=== PATIENT | female | born 1940 | race Caucasian/White ===

== ENCOUNTER 2020-06-16 18:38 | Inpatient (IN) | payer MEDICARE, MEDICAID, SELFPAY ==
[2020-06-16] VITALS (15 sets, daily range): BP systolic 117–154; BP diastolic 68–89; PULSE 75–84; RESP 18–30; TEMP 36.6; O2SAT 92–97; BMI 23.8
--- NOTE | 2020-06-16 18:43 | CTR_ITS ---
PROCEDURE INFORMATION: Exam: CT Abdomen And Pelvis With Contrast Exam date and time: 06/16/2020 8:00 PM Age: 80 years old Clinical indication: Abdominal pain; Generalized; Prior surgery; Surgery date: 6+ months; Surgery type: Gb, part hyst; Patient HX: C/O abd pain w n/v and constipation TECHNIQUE: Imaging protocol: Computed tomography of the abdomen and pelvis with intravenous contrast. Radiation optimization: All CT scans at this facility use at least one of these dose optimization techniques: automated exposure control; mA and/or kV adjustment per patient size (includes targeted exams where dose is matched to clinical indication); or iterative reconstruction. Contrast material: VISI 320; Contrast volume: 95 ml; Contrast route: INTRAVENOUS (IV); COMPARISON: [facility] Renal 03/19/2017 9:46 AM RADIATION DOSE METRICS: Total DLP (mGy-cm): 332.86 FINDINGS: Liver: Normal. No mass. Gallbladder and bile ducts: Surgical clips in the gallbladder fossa consistent with cholecystectomy. Dilatation of the intra-and extrahepatic biliary tree which can be normal following cholecystectomy. Pancreas: Normal. No ductal dilation. Spleen: Normal. No splenomegaly. Adrenal glands: 2.2 x 1.5 cm right adrenal mass. Correlation with non-emergent MRI is recommended to rule out malignant neoplasm versus benign adrenal adenoma. Kidneys and ureters: Right renal simple cyst measuring >1.0 cm . Multiple left renal simple cysts with the largest measuring > 1.0 cm. One or more focal cortical defects in the left kidney, representing sequela from previous infection or infarction. Stomach and bowel: Duodenal diverticulum. Severe sigmoid colonic diverticulosis. Lobulated 5.1 x 4.6 by 6.8 cm apple core lesion in the left transverse colon adjacent to the splenic flexure most consistent with nonobstructing colon carcinoma. Appendix: No evidence of appendicitis. Intraperitoneal space: Moderate free fluid in the dependent portion the pelvis which is probably secondary to the left upper quadrant mass. Retroperitoneal space: Large loculated 12.7 x 5.4 x 8.1 cm fluid collection posterior to the inferior margin of the left transverse colon mass with possible connection with the lumen of the mass suggesting possible loculated abscess/perforation versus enlarged duplication cyst. Vasculature: Severe calcified coronary artery disease. Calcification of the abdominal aorta and/or iliac arteries consistent with atherosclerotic vessel disease. 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 Nonemergent vascular surgery consultation is recommended. Lymph nodes: Calcified bilateral hilar nodes and/or mediastinal nodes and/or lung granulomas consistent with old granulomatous disease. Urinary bladder: Unremarkable as visualized. Reproductive: Status post hysterectomy. Bones/joints: Grade 1 anterior non-spondylitic spondylolisthesis of L4 on L5 with central spinal stenosis and prominent facet degenerative changes. Soft tissues: 5.9 cm midline anterior abdominal hernia containing fat, just anterior to the left liver, 14 cm superior to the umbilicus. CT/CT abdomen pelvis w con* [id number] IMPRESSION: 1. 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 Nonemergent vascular surgery consultation is recommended. 2. 2.2 x 1.5 cm right adrenal mass. Correlation with non-emergent MRI is recommended to rule out malignant neoplasm versus benign adrenal adenoma. 3. Lobulated 5.1 x 4.6 by 6.8 cm apple core lesion in the left transverse colon adjacent to the splenic flexure most consistent with nonobstructing colon carcinoma. 4. Large loculated 12.7 x 5.4 x 8.1 cm fluid collection posterior to the inferior margin of the left transverse colon mass with possible connection with the lumen of the mass suggesting possible loculated abscess/perforation versus enlarged duplication cyst. 5. Moderate free fluid in the dependent portion the pelvis which is probably secondary to the left upper quadrant mass. COMMENTS: Consistent with the [employer]'s Incidental Findings Committee white paper (J Am Jaqueline Radiol 2018): Any incidental renal lesion less than 1 cm or classified as too small to characterize, or any incidental cystic renal lesion characterized as simple-appearing, is likely benign. No follow-up imaging is recommended for these lesions per consensus recommendations based on imaging criteria. Radiation Dose CTDIVOL = (mGy): DLP = 332.86 (mGy-cm)
--- NOTE | 2020-06-16 18:47 | W.ED.ABDPA2 ---
HPI - Abdominal Pain General: Chief Complaint: Abdominal Pain Stated Complaint: ABD PAIN Time Seen by Provider: 06/16/20 18:39 Source: patient and EMS Mode of arrival: EMS Limitations: no limitations History of Present Illness: HPI narrative: 80-year-old female who states she had abdominal pain over the last 2 days. States pain is been sharp in nature and diffuse. States she has been constipated and has not had a bowel movement over the last 5 days. She denies any vomiting denies any fever denies any worsening improving factors. MD elicited complaint: abdominal pain Onset (ago): day(s) Pain Consistency: constant Location: Diffuse Severity: moderate Quality: aching Radiation: none Migration to: no migration Associated Symptoms: Denies chills, dysuria and fever(s) Review of Systems Const: Denies: fever(s), chills, body aches or change in appetite Eyes: Denies: blurry vision or eye discomfort ENMT: Denies: throat pain or dental pain Card: Denies: chest pain Resp: Denies: dyspnea GI: Reports: abdominal pain : Denies: dysuria Musc: Denies: neck pain or back pain Skin/Breast: Denies: rash Neuro: Denies: headache(s) Psych: Denies: depression Frantz/Lymph: Denies: easy bruising All/Imm: Denies: urticaria PFSH ED PFSH: Medical History (Updated 06/16/20 @ 21:24 by Agustín Buchanan MD) Arthritis COPD (chronic obstructive pulmonary disease) Hypertension Surgical History (Updated 06/16/20 @ 21:24 by Agustín Buchanan MD) H/O: hysterectomy S/P cholecystectomy Social History (Updated 06/16/20 @ 21:25 by Agustín Buchanan MD) Smoking and tobacco status: former smoker Alcohol intake: never Substance/Drug Use: never Physical Exam Const: COMMON NORMALS: no acute distress, patient oriented x3 and healthy appearing HENMT: COMMON NORMALS: normocephalic and atraumatic HEAD & SCALP: normocephalic and atraumatic Eye: COMMON NORMALS: Equal, round and reactive pupils present and EOMs intact bilaterally PUPIL: Yes Equal, round and reactive pupils present Neck/C-Spine: COMMON NORMALS: full ROM and supple Chest: COMMONS NORMALS: normal inspection of the chest and normal palpation of entire chest wall Resp: COMMON NORMALS: normal respiratory effort, No retractions, No use of accessory muscles and clear to auscultation bilaterally AUSCULTATION: clear to auscultation bilaterally Cardio: COMMON NORMALS: regular rate, regular rhythm and No murmurs present (Cardio) RATE: regular rate RHYTHM: regular rhythm GI: COMMON NORMALS: Normal to inspection, nondistended, normoactive bowel sounds present, Soft to palpation and no masses PALPATION: Yes Soft to palpation OTHER: Slight diffuse tenderness. Abdominal hernia that is easily reducible. Extremity: COMMON NORMALS: normal to inspection and full ROM Neuro: COMMON NORMALS: patient oriented x3, moves all extremities and no focal motor deficits Psych: COMMON NORMALS: mental status grossly normal, Normal thought process present and cooperative THOUGHT PROCESS: Normal thought process present Skin: COMMON NORMALS: no rashes or lesions noted and no wounds GENERAL SKIN EXAM: no rashes or lesions noted Course Vital Signs: Vital signs: Vital Signs Temperature 97.9 F 06/16/20 18:39 Pulse Rate 80 06/16/20 18:39 Respiratory Rate 18 06/16/20 18:39 Blood Pressure 139/73 06/16/20 18:39 Pulse Oximetry 96 06/16/20 18:39 MDM - Abdominal Pain MDM Narrative: Medical decision making narrative: Patient presents here with abdominal pain. Her CT scan shows a colon mass with possible perforation versus abscess. She has minimal tenderness here with no acute exam findings for perforation. She does have an elevated white count. I spoke to surgeon on-call Dr. Fraser and went over CT findings with him. We will start her on vancomycin and Zosyn and and order lactate. Patient is admitted to the ICU. She has been stable while in the ER. Lab Data: Labs: Lab Results 06/16/20 06/16/20 06/16/20 Range/Units 19:35 19:35 20:00 WBC 19.2 H (4.0-10.0) 10^3/ uL RBC 4.78 (4.1-5.3) 10^6/u L Hgb 13.4 (11.5-15.3) g/dL Hct 40.8 (37.0-47.0) % MCV 85.4 (81-99) fL MCH 28.0 (28.0-34.0) pg MCHC 32.8 (30.0-36.0) g/dL RDW 13.4 (12.1-15.1) % Plt Count 277 (130-400) 10^3/c mm MPV 10.8 H (7.4-10.4) fL Neut % (Auto) 86.7 % Lymph % (Auto) 3.8 % [place] % (Auto) 8.5 % Eos % (Auto) 0.1 % Baso % (Auto) 0.3 % Neut # (Auto) 16.62 H (1.8-7.7) 10^3/u L Lymph # (Auto) 0.7 L (0.8-4.8) 10^3/u L [place] # (Auto) 1.6 H (0.2-0.9) 10^3/u L Eos # (Auto) 0.0 (0.0-0.8) 10^3/u L Baso # (Auto) 0.1 (0.0-0.1) 10^3/u L Nucleated RBC % (a uto) 0 % Nucleated RBCs # 0.0 /100WBC Sodium 133 L (136-145) mmol/L Potassium 3.9 (3.5-5.1) mmol/L Chloride 95 L (98-107) mmol/L Carbon Dioxide 23 (22-29) mmol/L Anion Gap 18.9 (5-19) BUN 19 (8-23) mg/dL Creatinine 1.5 H (0.5-0.9) mg/dL GFR Calculation Not Reportable Glucose 123 H (65-115) mg/dL Calculated Osmolal ity 280 L (285-295) mOsm/k g Calcium 8.9 (8.5-10.5) mg/dL Total Bilirubin 0.6 (0.15-1.2) mg/dL AST 16 (0-32) U/L ALT 10 (0-33) U/L Alkaline Phosphata se 70 (35-105) IU/L Total Protein 6.4 L (6.6-8.7) g/dL Albumin 3.3 L (3.5-5.2) g/dL Globulin 3.1 (1.3-4.6) g/dL Lipase 35 (13-60) U/L Urine Color Yellow (Yellow) Urine Appearance Sl cloudy A (CLEAR) Urine pH 5 (5-7) Ur Specific Gravit y 1.020 (1.005-1.030) Urine Protein 1+ H (Negative) Urine Glucose (UA) Norm (Normal) Urine Ketones 1+ H (Negative) Urine Blood 2+ H (Negative) Urine Nitrate Negative (Negative) Urine Bilirubin 1+ H (Negative) Urine Urobilinogen 4 H (Negative) mg/dL Ur Leukocyte Vianca ase 2+ H (Negative) Urine RBC 15-25 H (0-2) /hpf Urine WBC 40-55 H (0-5) /hpf Ur Squamous Epith Cells 55-80 H (0-5) /hpf Amorphous Sediment Not Reportable Urine Bacteria 4+ H (NONE) /hpf Imaging Data ^: CT Abd/Pel: Radiologist's impression: [address] [place] [id number] Scan Report Signed with Addenda Patient: Chastity Cramer Unit #: [id number] : [id number] Age/Sex: 80 / F ADM Date: 06/16/20 Loc: ER Room/Bed: Attending Dr: Ordering Provider/Ordering MD: Sherley Barton MD Date of Service: 06/16/20 Procedure(s): CT abdomen pelvis w con* [id number] Accession Number(s): [id number] Report Number: [id number]/CT abdomen pelvis w con* [id number] THIS REPORT CONTAINS FINDINGS THAT MAY BE CRITICAL TO PATIENT CARE. The findings were verbally communicated via telephone conference with Sherley Barton at 8:50 PM [employer] on 06/16/2020. The findings were acknowledged and understood. Radiation Dose CTDIVOL = (mGy): DLP = 332.86 (mGy-cm) Addendum Dictated By: Gene Allen MD Addendum Signed By: Gene Allen MD Signed Date/Time: 06/16/202050 Addendum Cosigned By: PROCEDURE INFORMATION: Exam: CT Abdomen And Pelvis With Contrast Exam date and time: 06/16/2020 8:00 PM Age: 80 years old Clinical indication: Abdominal pain; Generalized; Prior surgery; Surgery date: 6+ months; Surgery type: Gb, part hyst; Patient HX: C/O abd pain w n/v and constipation TECHNIQUE: Imaging protocol: Computed tomography of the abdomen and pelvis with intravenous contrast. Radiation optimization: All CT scans at this facility use at least one of these dose optimization techniques: automated exposure control; mA and/or kV adjustment per patient size (includes targeted exams where dose is matched to clinical indication); or iterative reconstruction. Contrast material: VISI 320; Contrast volume: 95 ml; Contrast route: INTRAVENOUS (IV); COMPARISON: [facility] Renal 03/19/2017 9:46 AM RADIATION DOSE METRICS: Total DLP (mGy-cm): 332.86 FINDINGS: Liver: Normal. No mass. Gallbladder and bile ducts: Surgical clips in the gallbladder fossa consistent with cholecystectomy. Dilatation of the intra-and extrahepatic biliary tree which can be normal following cholecystectomy. Pancreas: Normal. No ductal dilation. Spleen: Normal. No splenomegaly. Adrenal glands: 2.2 x 1.5 cm right adrenal mass. Correlation with non-emergent MRI is recommended to rule out malignant neoplasm versus benign adrenal adenoma. Kidneys and ureters: Right renal simple cyst measuring >1.0 cm . Multiple left renal simple cysts with the largest measuring > 1.0 cm. One or more focal cortical defects in the left kidney, representing sequela from previous infection or infarction. Stomach and bowel: Duodenal diverticulum. Severe sigmoid colonic diverticulosis. Lobulated 5.1 x 4.6 by 6.8 cm apple core lesion in the left transverse colon adjacent to the splenic flexure most consistent with nonobstructing colon carcinoma. Appendix: No evidence of appendicitis. Intraperitoneal space: Moderate free fluid in the dependent portion the pelvis which is probably secondary to the left upper quadrant mass. Retroperitoneal space: Large loculated 12.7 x 5.4 x 8.1 cm fluid collection posterior to the inferior margin of the left transverse colon mass with possible connection with the lumen of the mass suggesting possible loculated abscess/perforation versus enlarged duplication cyst. Vasculature: Severe calcified coronary artery disease. Calcification of the abdominal aorta and/or iliac arteries consistent with atherosclerotic vessel disease. 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 Nonemergent vascular surgery consultation is recommended. Lymph nodes: Calcified bilateral hilar nodes and/or mediastinal nodes and/or lung granulomas consistent with old granulomatous disease. Urinary bladder: Unremarkable as visualized. Reproductive: Status post hysterectomy. Bones/joints: Grade 1 anterior non-spondylitic spondylolisthesis of L4 on L5 with central spinal stenosis and prominent facet degenerative changes. Soft tissues: 5.9 cm midline anterior abdominal hernia containing fat, just anterior to the left liver, 14 cm superior to the umbilicus. CT/CT abdomen pelvis w con* [id number] IMPRESSION: 1. 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 Nonemergent vascular surgery consultation is recommended. 2. 2.2 x 1.5 cm right adrenal mass. Correlation with non-emergent MRI is recommended to rule out malignant neoplasm versus benign adrenal adenoma. 3. Lobulated 5.1 x 4.6 by 6.8 cm apple core lesion in the left transverse colon adjacent to the splenic flexure most consistent with nonobstructing colon carcinoma. 4. Large loculated 12.7 x 5.4 x 8.1 cm fluid collection posterior to the inferior margin of the left transverse colon mass with possible connection with the lumen of the mass suggesting possible loculated abscess/perforation versus enlarged duplication cyst. 5. Moderate free fluid in the dependent portion the pelvis which is probably secondary to the left upper quadrant mass. Critical Care Time Critical Care Time: Critical Care Time: Yes Total Critical Care Time: 36 Attestation: This case had a high probability of a clinically significant, sudden, or life threatening deterioration of this patient's condition which required my full and direct attention, intervention and personal management. Discharge Plan Discharge Patient Disposition: Admitted As Inpatient Admit Provider: Agustín Buchanan Clinical Impression: Colonic mass, Intra-abdominal abscess Condition: Stable Coding Level of Care Code ED Director Business Management for Chg Fwd Exam Comprehensive
[2020-06-16 19:44] LABS: Basophils # 0.1 10^3/uL (0.0-0.1); Basophils % 0.3 %; Eosinophils % 0.1 %; Hematocrit 40.8 % (37.0-47.0); Hemoglobin 13.4 g/dL (11.5-15.3); Lymphocytes # 0.7 10^3/uL (0.8-4.8); Lymphocytes % 3.8 %; Mean Corpuscular HGB Conc 32.8 g/dL (30.0-36.0); Mean Corpuscular Volume 85.4 fL (81-99); Mean Platelet Volume 10.8 fL (7.4-10.4); Monocytes # 1.6 10^3/uL (0.2-0.9); Monocytes % 8.5 %; Neutrophils # 16.62 10^3/uL (1.8-7.7); Neutrophils % 86.7 %; Nucleated Red Blood Cells % 0 %; Platelet Count 277 10^3/cmm (130-400); Red Blood Count 4.78 10^6/uL (4.1-5.3); Red Cell Distribution Width 13.4 % (12.1-15.1); White Blood Count 19.2 10^3/uL (4.0-10.0)
[2020-06-16 20:03] LABS: Alanine Aminotransferase 10 U/L (0-33); Albumin Level 3.3 g/dL (3.5-5.2); Alkaline Phosphatase 70 IU/L (35-105); Anion Gap 18.9 (5-19); Aspartate Amino Transferase 16 U/L (0-32); Blood Urea Nitrogen 19 mg/dL (8-23); Calcium 8.9 mg/dL (8.5-10.5); Carbon Dioxide 23 mmol/L (22-29); Chloride 95 mmol/L (98-107); Globulin 3.1 g/dL (1.3-4.6); Glucose 123 mg/dL (65-115); Lipase 35 U/L (13-60); Osmolality Calculated 280 mOsm/kg (285-295); Potassium 3.9 mmol/L (3.5-5.1); Sodium 133 mmol/L (136-145); Total Bilirubin 0.6 mg/dL (0.15-1.2); Total Protein 6.4 g/dL (6.6-8.7)
[2020-06-16] MEDS: iodixanol 320 mg/mL 100mL Btl IV (20:15)
[2020-06-16 20:16] LABS: Urine Color Yellow (Yellow); pH Urine 5 (5-7)
[2020-06-16 20:17] LABS: Bilirubin Urine 1+ (Negative); Blood Urine 2+ (Negative); Glucose Urine UA Norm (Normal); Ketones Urine 1+ (Negative); Leukocyte Esterase Urine 2+ (Negative); Nitrate Urine Negative (Negative); Protein Urine 1+ (Negative); Urobilinogen Urine 4 mg/dL (Negative)
[2020-06-16 20:23] LABS: Add Urine Culture? No; Bacteria Urine 4+ /hpf; RBC Urine 15-25 /hpf (0-2); Squamous Epithelial Cell Urine 55-80 /hpf (0-5); WBC Urine 40-55 /hpf (0-5)
--- NOTE | 2020-06-16 21:16 | P.HP_ITS ---
Providers/Chief Complaint Chief Complaint: ABD PAIN History of Present Illness Chastity Cramer is a 80 year old female without significant past medical surgical history presented today with chief complaint of abdominal pain. Patient is very hard of hearing, daughter is at the bedside who is endorsing that her last bowel movement was 48 hours ago, she has been having abdominal pain for last 1 week and today she started experiencing emesis for which she decided to come to the hospital. She has not noticed any fever, chest pain, shortness of breath, dysuria, patient is endorsing alternating diarrhea and constipation. Her abdominal pain has been getting worse. Her previous colonoscopies were unremarkable as per the patient. She is denying family history of colon cancer. She is denying fever, night sweats. She currently lives with her son's girlfriend. She did not eat anything today her last meal was chicken noodle soup last night which she vomited today. She is fairly active for her age, never had CHF, PA, coronary disease or stroke Diagnosis in the ER revealed leukocytosis 19.2, sodium 133, lactic acid 1.0, CT abdomen revealed CT/CT abdomen pelvis w con* [id number] IMPRESSION: 1. 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 Nonemergent vascular surgery consultation is recommended. 2. 2.2 x 1.5 cm right adrenal mass. Correlation with non-emergent MRI is recommended to rule out malignant neoplasm versus benign adrenal adenoma. 3. Lobulated 5.1 x 4.6 by 6.8 cm apple core lesion in the left transverse colon adjacent to the splenic flexure most consistent with nonobstructing colon carcinoma. 4. Large loculated 12.7 x 5.4 x 8.1 cm fluid collection posterior to the inferior margin of the left transverse colon mass with possible connection with the lumen of the mass suggesting possible loculated abscess/perforation versus enlarged duplication cyst. 5. Moderate free fluid in the dependent portion the pelvis which is probably secondary to the left upper quadrant mass. At the time my evaluation all findings were explained to the patient and daughter. Patient was not complaining of any abdominal pain she rated 0/10, hemodynamically stable, Zosyn was running at the bedside, she had localized tenderness in left upper quadrant area, aortic bulge noted sub sternal area Dr. Fraser has been notified and made aware of all of these concerning findings, she will stay in ICU Review of Systems Const: Reports: body aches, change in appetite and fatigue; Denies: fever(s) Eyes: Denies: change in vision ENMT: Denies: throat pain Card: Denies: chest pain Resp: Denies: dyspnea GI: Reports: nausea and constipation; Denies: abdominal pain : Denies: flank pain Musc: Reports: muscle cramps Skin/Breast: Denies: rash Neuro: Denies: headache(s) Psych: Denies: anxiety Endo: Denies: polyuria Frantz/Lymph: Denies: easy bruising All/Imm: Denies: urticaria Medications/Allergies Allergies Allergy/AdvReac Type Severity Reaction Status Date / Time No Known Allergies Allergy Verified 06/16/20 18:45 PFSH Acute PFSH: Medical History Arthritis COPD (chronic obstructive pulmonary disease) Hypertension Surgical History H/O: hysterectomy S/P cholecystectomy Family History (Updated 06/16/20 @ 22:20 by Agustín Buchanan MD) Other Diabetes Denies family history of Cancer Social History Smoking and tobacco status: former smoker Alcohol intake: never Substance/Drug Use: never Vitals/I&O/Wt Last Vital Signs Temp 97.9 F 06/16/20 18:39 Pulse 80 06/16/20 18:39 Resp 18 06/16/20 18:39 BP 139/73 06/16/20 18:39 Pulse Ox 96 06/16/20 18:39 Weight last 48 hrs Weight 58.967 kg Physical Exam Narrative: EXAM NARRATIVE: Very pleasant elderly female Dehydrated No acute distress at the time of my evaluation Daughter is at the bedside Very cooperative during my exam, she has severe hearing impairment, she could hear better from right ear S1, S2 sinus rhythm no sign of heart failure or no murmur appreciated No acute respiratory distress bilateral breath sounds Lower extremity no edema gangrene ulcer Awake alert oriented x3 GCS 15 No neurological deficit Abdomen, distended, no active signs of rigidity, diffuse peritonitis, she has tenderness to deep palpation left upper quadrant, nonpulsatile hernia bulging noted just below left hepatic area , bowel sounds present, sluggish, cholecystectomy scar noted Skin without ischemia gangrene or ulcer Data : 06/16/20 19:35 06/16/20 19:35 A&P Assessment and plan (1) Colonic mass: Status: Acute (2) Intra-abdominal abscess: Status: Acute (3) Constipation: Status: Acute (4) Acute kidney injury superimposed on chronic kidney disease: Status: Acute Additional A&P Information Colonic mass Nonobstructing mass noted on CT abdomen patient has history of alternating diarrhea and constipation, one episode of emesis at home without any fever or night sweats, previous colonoscopies as per the patient were unremarkable No family history of colon cancer No active emesis, abdominal pain 0/10 No signs of sepsis, leukocytosis noted Considering good encased fluid collection start her on vancomycin and Zosyn N.p.o., IV fluid resuscitation Dilaudid from analgesia Dr. Fraser notified and consulted Will monitor in ICU, closely monitor for any signs of worsening abdominal pain, peritonitis as she has high risk for rupture loculated collection 12 x 5 x 8 cm Apple core lesion identified in the left transverse colon, RCRI class I, she carries high risk of mortality and morbidity considering her age, however does not have significant coronary disease or history of CHF, she also has high creatinine, For drainage of fluid/abscess and histopathological diagnosis we will follow up with general surgery recommendations Descending thoracic aortic aneurysm No active hemodynamic instability 8 cm saccular descending thoracic aneurysm without rupture or leakage, consider vascular consult for assistance in perioperative management Acute on chronic kidney disease Patient creatinine essentially normal 1-1.4 current creatinine 1.5, I believe this is secondary to dehydration no hydronephrosis identified on CT abdomen, monitor urine output and correlate with creatinine and fluid status Start her on D5 half-normal fluid maintenance rate N.p.o. Full code DVT prophylaxis SCD Daughter wants to be on phone in the morning when Dr. Fraser evaluates her in the morning, had a lengthy discussion with the daughter and the patient regard ing all the CT findings, why we need ICU, complications higher risk of mortality and morbidity including risk of , all questions were answered to the satisfaction Daughter's phone number is on the face sheet as well Attestations Medical Necessity Statement*: Anticipating stay in the hospital course more than 2 midnights carries high risk for mortality morbidity considering intra- abdominal large fluid collection/abscess, colonic mass, cancer, secular aneurysm and OMI Time Spent in Patient Care: (>than 50% of time spent in counselling and/or direct pt care on unit) . 50mins Coding Level of Care Code Acute Laborer General for Chg Fwd Diagnoses Colonic mass K63.89 Intra-abdominal abscess K65.1 Constipation K59.00 Acute kidney injury superimposed on chronic kidney disease N17.9; N18.9
[2020-06-16] MEDS: piperacillin-tazobactam 3.375 GM in sodium chloride 0.9% (plus) 50 ML IV (21:56)
--- NOTE | 2020-06-16 23:17 | PC.NURSE ---
i agree with the assessment
--- NOTE | 2020-06-16 23:19 | PC.NURSE ---
Patient arrived to ICU from ED at 2305. Patient is alert and orientated x4. Lung sounds clear diminished in bases. BS active in all 4 quadrants. Call light within reach Continue care.
[2020-06-16] MEDS: D5-NS 0.45% + KCL 20 mEq 20 MEQ/1,000 ML BAG 75 MEQ IV (23:37)
--- NOTE | 2020-06-16 23:39 | PC.PHAR ---
Vancomycin is dosed at 1250mg IVPB every 48 hours to produce a predicted trough level of 15.2 (population based pharmacokinetic analysis). A trough level has been ordered from the lab to be obtained before the fourth dose to confirm and adjust if needed. The Zosyn is dosed at 3.375gm IVPB every 8 hours on basis of creatinine clearance of 24.49. Each dose is to be infused over four hours per extended infusion protocol.
[2020-06-16] MEDS: vancomycin 1,250 MG/250 ML PIGGYBACK 250 MG IV (23:41)
[2020-06-17] VITALS (105 sets, daily range): BP systolic 103–133; BP diastolic 62–84; PULSE 63–100; RESP 13–32; TEMP 36.6–36.8; O2SAT 90–99
--- NOTE | 2020-06-17 03:51 | PC.NURSE ---
Patient reported needing to void. Patient placed on bedpan with multiple attempts to urinate with no avail. Bladder scanned patient and scanner showed 600mL of urine present in bladder. Called Dr. Buchanan and he gave telephone order to place indwelling mccann. Mccann placed via sterile technique, 10mL inflated in bulb, with 400mL of urine return. Patient tolerated well. Call light within reach. Continue care.
[2020-06-17 04:34] LABS: Basophils # 0.1 10^3/uL (0.0-0.1); Basophils % 0.3 %; Eosinophils # 0.1 10^3/uL (0.0-0.8); Eosinophils % 0.4 %; Hematocrit 43.6 % (37.0-47.0); Hemoglobin 13.9 g/dL (11.5-15.3); Lymphocytes # 1.2 10^3/uL (0.8-4.8); Lymphocytes % 6.4 %; Mean Corpuscular HGB Conc 31.9 g/dL (30.0-36.0); Mean Corpuscular Hemoglobin 28.1 pg (28.0-34.0); Mean Corpuscular Volume 88.1 fL (81-99); Mean Platelet Volume 11.2 fL (7.4-10.4); Monocytes # 1.6 10^3/uL (0.2-0.9); Monocytes % 8.6 %; Neutrophils # 15.62 10^3/uL (1.8-7.7); Neutrophils % 83.6 %; Nucleated Red Blood Cells % 0 %; Platelet Count 293 10^3/cmm (130-400); Red Blood Count 4.95 10^6/uL (4.1-5.3); Red Cell Distribution Width 13.4 % (12.1-15.1); White Blood Count 18.7 10^3/uL (4.0-10.0)
--- NOTE | 2020-06-17 04:38 | PC.NURSE ---
Patient resting in bed with eyes closed. No s/s of distress or complaints of pain. Patients mccann is in place and draining appropriately. Call light within reach. Continue care.
[2020-06-17] MEDS: piperacillin-tazobactam 3.375 GM in sodium chloride 0.9% (plus) 50 ML IV ×3 (05:07→22:58)
[2020-06-17 05:19] LABS: Anion Gap 17.9 (5-19); Blood Urea Nitrogen 20 mg/dL (8-23); Calcium 8.9 mg/dL (8.5-10.5); Carbon Dioxide 23 mmol/L (22-29); Chloride 96 mmol/L (98-107); Glucose 106 mg/dL (65-115); Osmolality Calculated 279 mOsm/kg (285-295); Potassium 3.9 mmol/L (3.5-5.1); Sodium 133 mmol/L (136-145)
--- NOTE | 2020-06-17 06:15 | PC.NURSE ---
Patient did have one episode of emesis at 0615 of approximately 60 mLs.
--- NOTE | 2020-06-17 09:43 | P.PN_ITS ---
Subjective Subjective: Interval history: 80 year old with past medical history of cholecystectomy, partial hysterectomy, remote tobacco abuse, chronic obstructive pulmonary disease , chronic stage 3 kidney disease with abaseline creatinine around 1.4 and hypertension who presented to the hospital with abdominal pain. Upon admission to the hospital patient's initial laboratory workup showed WBC of 19.2, hemoglobin of 13.4, hematocrit 40.8 and a platelet count of 277. sodium 133, potassium 3.9, chloride 95, bicarb 23, BUN 19 and creatinine 1.5. Most recent creatinine was in 2016 of 1.4. LFTs were within normal limits. CEA was 9.7. UA showed 2+ leukocyte esterace, 40-50 wbc however 55-80 SE cells, 4+ bacteria. CT abd/pelvis showed 8 cm saccular desending thoracic aortic aneurysm w/o rupture. 2.2 x 1.5 right adrenal mass. 5.1 x 4.6 x 6.8 cm apple core lesion in the left transverse colon and large loculated 12.7 x 5.4 x 8.1 cm fluid collection posterior to the inferior margin of the left transverse colon mass with possible connection with the lumen of the mass suggesting possible loculated abscess/perforation versus enlarged duplication cyst. Upon admisison patient was started on vancomycin pharmacy to dose and zosyn 3.375g IV q8hr. In addition was also starrted on IVF with D5 0.45 with KCL 20 Meq at 75cc/hr. General surgery was consulted. On 06/17 patient was taken for CT guided drainage of large peritoneal loculated fluid collection. Analysis of the fluid showed appearance to be clear, pH 8.0, WBC 17 88, 97% PNM, glucose less than 2.0, total protein 4, albumin 2.6, LDH 911, amylase 34, less than 5 alkaline phosphatase, cholesterol 88, triglycerides 41 and uric acid 6. SAAG ratio - 0.7 The appeared to be exudated. Medications: Reviewed: Yes Vitals/I&O/Wt Last Vital Signs Temp 98.2 F 06/17/20 08:00 Pulse 89 06/17/20 14:30 Resp 20 H 06/17/20 14:30 BP 133/70 06/17/20 14:30 Pulse Ox 92 06/17/20 14:30 06/17/20 06/17/20 06/17/20 06:59 14:59 22:59 Intake Total 0 / 0 1292.5 / 1292.5 Output Total 60 / 60 151 / 151 Balance -60 / -60 1141.5 / 1141.5 Weight last 48 hrs Weight 58.967 kg Physical Exam Narrative: EXAM NARRATIVE: General : Alert, awake on the phone awaiting CT guided drainage. HEENT: Grossly unremakable CVS : NSR CHEST : Non-labored respiration ABD: Distended Ext : no edema Urinary Catheter Management^: Fernando: Cath Placed During This Visit: yes Reason for Continuing Indwelling Catheter: Accurate Measurement of Urinary Output in Critically Ill Patients Urinary Catheter Date of Insertion: 06/17/20 Urinary Catheter Time of Insertion: 03:50 Data : 06/17/20 03:50 06/17/20 03:50 Micro: Microbiology 06/17/20 12:20 Gram Stain - Final Peritoneal Fluid 06/17/20 03:50 Blood Culture - Preliminary Blood SPECIMEN COLLECTED 06/16/20 21:20 Blood Culture - Preliminary Blood SPECIMEN COLLECTED A&P Assessment and plan (1) Intra-abdominal abscess: Status: Acute (2) Colonic mass: Status: Acute (3) Constipation: Status: Acute (4) Acute kidney injury superimposed on chronic kidney disease: Status: Acute Intra-abdominal abscess - S/p drain - Fluid analysis cosistent with exudative - Follow up on culture, blood & fluid. - Fluid mycobacterial culture sent - Continue vancomycin pharmacy to dose - Zosyn 3.375g IV q8hr - General surgery on board. Colonic mass likely malignancy - 5.1 x 4.6 x 6.8 cm apple core lesion in the left transverse colon - GS on board - CEA elevated - Follow up on further plan Acute on chronic stage 3 kidney disease - Creatinine baseline 1.4 - 1.5 on admit - now improved. - IVF - BMP in am COPD - Stable Hypertension - Bp stable - Resume meds if hypertensive DVT ppx - SCDS due to invasive procedures - Heparin once ok with surgery Attestations Medical Necessity Statement*: Will likely require over 2 midnight stay in hospital for evaluation and treatment of intra abdominal abscess and mass Time Spent in Patient Care: Greater than 35 minutes Coding Level of Care Code Acute Staff Nuclear Weapons Officer for [facility] Fwd Diagnoses Intra-abdominal abscess K65.1 Colonic mass K63.89 Constipation K59.00 Acute kidney injury superimposed on chronic kidney disease N17.9; N18.9
--- NOTE | 2020-06-17 10:01 | PM.CONSULT ---
Providers/Reason For Consult Consulting Physican/Specialty*: Dr. Vail Reason for Consult*: colon mass Attending Physician: Deja Vail History of Present Illness History of Present Illness Chastity Cramer is a 80 year old female who presented to the ER last night with complaints of abdominal pain. The patient states the pain is generalized, worse with physical activity. The pain does not radiate, no relieving factors. She had couple episodes of nausea and vomiting. She has alternating constipation and diarrhea. Patient is not sure when she had a last colonoscopy. Denies any bleeding per rectum. CT scan in the ER showed colonic mass with a large 12 cm x 8 cm fluid collection Review of Systems General: Reports: 10 or more systems reviewed and unremarkable except in HPI and below Meds/Allergies Home Medications and Allergies Home Medications Medication Instructions Recorded Confirmed Last Taken Type amlodipine 10 mg PO DAILY@06/17/20 06/17/20 Unknown History ascorbic aqpo-wjjlczor-bis 1 ea PO DAILY 06/17/20 06/17/20 Unknown History [Emergen-C] cholecalciferol (vitamin D3) 250 mcg PO DAILY PRN 06/17/20 06/17/20 Unknown History [Vitamin D3] metoprolol succinate 150 mg PO DAILY@06/17/20 06/17/20 Unknown History Allergies Allergy/AdvReac Type Severity Reaction Status Date / Time No Known Allergies Allergy Verified 06/17/20 09:28 Current Medications Current Medications Generic Name Dose Route Start Last Admin Trade Name Freq PRN Reason Stop Dose Admin Piperacillin Sod/Tazobactam 50 mls @ 12.5 mls/hr 06/17/20 06:00 06/17/20 09:05 Sod 3.375 gm/ Sodium Chloride IV Infused Q8H PAM Infusion Protocol As Directed Potassium Chloride/Dextrose/Sod Cl 20 meq in 1,000 mls @ 75 mls/hr 06/16/20 23:18 06/16/20 23:37 D5-Ns 0.45% + Kcl 20 Meq IV 75 mls/hr .[id number] PAM Administration Vancomycin/PEG/NADA/Lysine/Water 1,250 mg in 250 mls @ 250 mls/hr 06/17/20 00:00 06/17/20 09:41 Vancocin IV Infused Q48H PAM Infusion PFSH Acute PFSH: Medical History Arthritis COPD (chronic obstructive pulmonary disease) Hypertension Surgical History H/O: hysterectomy S/P cholecystectomy Family History Other Diabetes Denies family history of Cancer Social History Smoking and tobacco status: former smoker Alcohol intake: never Substance/Drug Use: never Vitals/I&O/Wt Last Vital Signs Temp 98.2 F 06/17/20 08:00 Pulse 82 06/17/20 08:00 Resp 27 H 06/17/20 08:00 BP 108/67 06/17/20 08:00 Pulse Ox 93 06/17/20 08:00 06/16/20 06/17/20 06/17/20 22:59 06:59 14:59 Intake Total 0 / 0 300 / 300 Output Total 60 / 60 Balance -60 / -60 300 / 300 Weight last 48 hrs Weight 130 lb Physical Exam Narrative: EXAM NARRATIVE: HEENT: Normocephalic Eye: Sclera /conjunctiva normal Respiratory and chest: Bilateral clear breath sounds on auscultation Cardiovascular: Normal S1 and S2 heart sounds Abdomen: Soft to palpation, right subcostal scar with incarcerated incisional hernia Neurological: Oriented to place person and time Skin: Intact, no lesions appreciated on gross exam Urinary Catheter Management^: Fernando: Cath Placed During This Visit: yes Reason for Continuing Indwelling Catheter: Accurate Measurement of Urinary Output in Critically Ill Patients Urinary Catheter Date of Insertion: 06/17/20 Urinary Catheter Time of Insertion: 03:50 Data Micro: Micro: Microbiology 06/17/20 03:50 Blood Culture - Pr eliminary Blood SPECIMEN [facility] KETAN 06/16/20 21:20 Blood Culture - Pr eliminary Blood SPECIMEN [facility] A&P Assessment and plan (1) Colonic mass: 1-year-old female with abdominal pain with CT scan showing colonic mass in the distal transverse colon concerning for malignancy. Obtain CEA Bowel prep with plans for colonoscopy tomorrow Discussed this with patient's daughter Ms. Tessie Clemente today. Patient also has aortic aneurysm which needs to be evaluated by Dr. Brito tomorrow Status: Acute (2) Intra-abdominal abscess: Discussed with radiology about CT-guided drain placement either today or tomorrow Status: Acute (3) Incisional hernia: Patient has asymptomatic incisional hernia from prior open cholecystectomy. This can be repaired if the plan is to proceed with surgery. Status: Acute Coding Level of Care Code Acute [employer] Tractor Operator for [facility] Fwd Diagnoses Colonic mass K63.89 Intra-abdominal abscess K65.1 Incisional hernia K43.2
--- NOTE | 2020-06-17 10:46 | CT_ITS ---
WS: [id number] CT-GUIDED abdominal abscess drainage. HISTORY: abdominal abscess FLUOROSCOPIC TIME: 1.2 minutes. DLP: 341.01 mGy-cm. All CT scans at [facility] use at least one of these dose optimization techniques: automat ed exposure control; mA and/or kV adjustment per patient size (includes targeted exams where dose is matched to clinical indication); or iterative reconstruction. Prior imaging studies are reviewed. History and physical are reviewed. Procedure, risks and complicat ions were explained to the patient. Consent is obtained. Fluid collection posterior to the transverse colon is localized. There is moderate amount of inflamma tion surrounding the cavity and deformed wall. No air within the cavity. Using aseptic technique and 1% buffered lidocaine a small dermatome is made. Trocar technique is utilized to insert a 10 German p igtail drainage catheter without complication. Catheter is coiled in the dependent portion of the cav ity. Catheter was connected to a drainage bag. Fluid aspirated is clear yellow. Specimen is collected for culture and sensitivity. Sterile dressing is applied. Patient tolerated the procedure very well. Small but increasing amount of fluid surrounding the spleen since the prior study. CT/CT drain peritoneum [id number] IMPRESSION: Uncomplicated 10 German pigtail catheter placement in the large peritoneal flui d collection which is likely an abscess. Specimen collected for analysis as req uested.
--- NOTE | 2020-06-17 11:12 | PC.NURSE ---
Consent for colonoscopy and CT guided drain of peritoneum is on chart. Dr. Fraser explained risks and benefits of procedure to patient.
[2020-06-17] MEDS: HYDROmorphone 1 mg/mL INJ 1 mL IVP ×2 (12:02→17:56)
--- NOTE | 2020-06-17 12:07 | PC.NURSE ---
Drain PT in CT for CT guided drain placement, Dr. Maharaj. Pt monitored 1:1 by this RN. VSS. 1 mg ivp Dilaudid given for procedure.
[2020-06-17] MEDS: D5-NS 0.45% + KCL 20 mEq 20 MEQ/1,000 ML BAG 75 MEQ IV (12:51)
[2020-06-17] MEDS: magnesium citrate Btl 296 mL PO ×2 (12:51→19:56)
[2020-06-17 13:32] LABS: Body Fluid Polynuclear #Cells 1.735; Body Fluid WBC 1788 /uL; Monocytes # Body Fluid 0.053; RBC, Body Fluid 0 10^3/uL
[2020-06-17 13:45] LABS: Apprearance, Body Fluid CLEAR; Color, Body Fluid PALE YELLOW
[2020-06-17 13:47] LABS: PATH Referral YES
[2020-06-17] MEDS: ondansetron 2 mg/ML SDV 2 mL 4 MG IVP ×2 (14:48→18:35)
[2020-06-17 14:52] LABS: Carcinoembryonic Antigen 9.7 ng/mL (0.0-4.7)
--- NOTE | 2020-06-17 14:56 | PC.NURSE ---
Emesis/vomiting dark green bile. No blood.
[2020-06-17 14:58] LABS: Fluid Alkaline Phos. < 5 IU/L
[2020-06-17 14:59] LABS: Glucose Body Fluid < 2.0 mg/dL
[2020-06-17 15:00] LABS: Albumin Body Fluid 2.6 g/dL; Total Protein Body Fluid 4 g/dL
[2020-06-17 15:01] LABS: Amylase Body Fluid 34 U/L; Cholesterol Body Fluid 88 mg/dL (0-200); LDH Body Fluid 911 U/L; Triglycerides Body Fluid 41 mg/dL (0-150); Uric Acid Body Fluid 6 mg/dL
[2020-06-17] MEDS: bisacodyl 5 mg Tablet 40 MG PO (15:41)
--- NOTE | 2020-06-17 17:58 | PC.NURSE ---
Dilaudid 1 mg IVP given at this time. Unable to scan ampule, manual barcode.
--- NOTE | 2020-06-17 18:09 | PC.NURSE ---
150 ml peritoneal fluid from drain. Pale yellow, no blood, no sediment.
--- NOTE | 2020-06-17 18:18 | PC.NURSE ---
2LNC added after Dilaudid. Sats dropped 85%, now 97%.
[2020-06-17] MEDS: metoclopramide 5 mg/mL SDV 2 mL 10 MG IVP (19:56)
--- NOTE | 2020-06-17 22:52 | PC.NURSE ---
Dr. Fraser Notified of patient being non-compliant with consumption of mag citrate. patient refuses a NGT at this time and would like to be re-evaluated tomorrow by medical staff. aware. Patient to remain NPO after midnight. No further orders at this time.
[2020-06-18] VITALS (27 sets, daily range): BP systolic 110–158; BP diastolic 65–92; PULSE 78–107; RESP 14–27; TEMP 36.7–36.9; O2SAT 90–98
[2020-06-18] MEDS: D5-NS 0.45% + KCL 20 mEq 20 MEQ/1,000 ML BAG 75 MEQ IV ×2 (02:05→17:51)
[2020-06-18] MEDS: HYDROmorphone 1 mg/mL INJ 1 mL IVP ×2 (04:41→21:44)
[2020-06-18] MEDS: ondansetron 2 mg/ML SDV 2 mL 4 MG IVP ×2 (05:04→21:47)
[2020-06-18] MEDS: piperacillin-tazobactam 3.375 GM in sodium chloride 0.9% (plus) 50 ML IV ×3 (05:05→21:45)
[2020-06-18 06:11] LABS: Basophils # 0.1 10^3/uL (0.0-0.1); Basophils % 0.4 %; Eosinophils # 0.2 10^3/uL (0.0-0.8); Eosinophils % 1.1 %; Hematocrit 46.2 % (37.0-47.0); Lymphocytes # 1.1 10^3/uL (0.8-4.8); Lymphocytes % 7.2 %; Mean Corpuscular HGB Conc 32.5 g/dL (30.0-36.0); Mean Corpuscular Hemoglobin 27.8 pg (28.0-34.0); Mean Corpuscular Volume 85.7 fL (81-99); Mean Platelet Volume 11.6 fL (7.4-10.4); Monocytes # 1.1 10^3/uL (0.2-0.9); Monocytes % 7.2 %; Neutrophils # 12.36 10^3/uL (1.8-7.7); Neutrophils % 83.1 %; Nucleated Red Blood Cells % 0 %; Red Blood Count 5.39 10^6/uL (4.1-5.3); Red Cell Distribution Width 13.7 % (12.1-15.1); White Blood Count 14.9 10^3/uL (4.0-10.0)
[2020-06-18 07:19] LABS: Platelet Count 200 10^3/cmm (130-400)
[2020-06-18 07:20] LABS: Slide Review Slide Review Perform
[2020-06-18 07:41] LABS: Alanine Aminotransferase 17 U/L (0-33); Albumin Level 3.1 g/dL (3.5-5.2); Alkaline Phosphatase 121 IU/L (35-105); Anion Gap 17.1 (5-19); Aspartate Amino Transferase 29 U/L (0-32); Blood Urea Nitrogen 22 mg/dL (8-23); Calcium 8.6 mg/dL (8.5-10.5); Carbon Dioxide 23 mmol/L (22-29); Chloride 100 mmol/L (98-107); Glucose 141 mg/dL (65-115); Osmolality Calculated 288 mOsm/kg (285-295); Potassium 4.1 mmol/L (3.5-5.1); Sodium 136 mmol/L (136-145); Total Bilirubin 0.9 mg/dL (0.15-1.2); Total Protein 6.1 g/dL (6.6-8.7)
--- NOTE | 2020-06-18 09:24 | PC.CHAP ---
Pastoral Care Encounter/Spiritual Assessment Type of Contact [] Declined vegetable trimmer visit [] Patient/Family/Request visit [] Outpatient visit [] Follow-up visit [] Physician referral [] Code/Alert [] Routine visit [] Staff referral [] Actively dying [] Patient sleeping [] Family support [] [] Out of room [] Palliative care [] [] Receiving care in room [] Pre-surgical visit [] Trauma [] Long length of stay [x] ICU visit [] Other: Relational/Emotional Strength [] Patient feels connected with others/family/visitors/staff [] Distress [] Loneliness/isolation [] Abandonment Spirituality of Patient [] Person of Love [] Attends Hinduism of their Love [] Believes in Prayer [] Reads Bible or Muslim materials [] There are Spiritual issues to be addressed Relationship Associate Interventions [x] Prayer [] Active listening [] Non-anxious presence [] Spiritual/emotional support [] Crisis/trauma care [] Spiritual counseling [] Bereavement support [] Provided bereavement packet [] Provided Bible/devotional materials [] Provided toy/stuffed animal, coloring book to patient or family member [] Provided Communion [] Anointing/[place] [] Salvation [x] Completed spiritual assessment [] Other: Impact on Illness or Injury [] Angry [] Fearful [] Anxious [] Often cries [] Exhaustion [] Unable to work [] Unable to attend yazidi [] Unable to walk/stand [] Unable to read [] Unable to drive [] Unable to eat/drink [] Unable to sleep [] Unable to be with family [] Patient intubated [] Other: Summary Time spent with patient
--- NOTE | 2020-06-18 09:44 | P.ANESASSM_ITS ---
Pre-Anesthetic Assessment Pre-Anesthetic Assessment: Height/Weight: Height 1.57 m Weight 58.967 kg Temp Pulse Resp BP Pulse Ox 98.4 F 87 20 H 144/80 95 06/18/20 08:00 06/18/20 09:00 06/18/20 09:00 06/18/20 09:00 06/18/20 09:00 Preop Diagnosis: colon mass Proposed Procedure: Operation Date: 06/18/20 12:00 Proposed Procedures p Colonoscopy(Not Applicable) - Eligio Fraser MD Familial anesthetic complications: none Was Beta Kira taken within 24 hours: N/A Last intake: NPO > 8 hrs, some vomiting, last incident earlier this morning. Not currently nauseated. Social: Social History: No alcohol and No tobacco Comment: former smoker Exam: Pre-Anes Outpt Exam: alert, oriented x 3, clear to auscultation bilaterally and regular rate & rhythm Airway: Cervical ROM: WNL MP: 2 Dentition: Other (no teeth) Pulmonary: Pulmonary: COPD CV/HEM: CV/HEM: HTN Comments: 8 cm descending thoracic aortic aneursym : Comments: OMI GI: Comments: colonic mass/abscess Anesthetic Plan: ASA status: 3 Anesthesia: MAC Other: avoid hypertension d/t 8 cm thoracic aortic aneurysm Risk of > 500 ml blood loss (7ml/kg in children): No Meds/Allergies Current Medications: Current Medications Generic Name Dose Route Start Last Admin Trade Name Freq PRN Reason Stop Dose Admin Hydromorphone HCl 1 mg 06/16/20 23:18 06/18/20 04:41 Hydromorphone 1 Mg/Ml Inj 1 Ml IVP 1 mg Q4H PRN Administration pain Piperacillin Sod/T azobactam 50 mls @ 12.5 mls /hr 06/17/20 06:00 06/18/20 05:05 Sod 3.375 gm/ So dium Chloride IV 12.5 mls/hr Q8H PAM Administration Protocol As Directed Potassium Chloride /Dextrose/Sod Cl 20 meq in 1,000 m ls @ 75 mls/hr 06/16/20 23:18 06/18/20 02:05 D5-Ns 0.45% + Ashu l 20 Meq IV 75 mls/hr .[id number] PAM Administration Vancomycin/PEG/NAD A/Lysine/Water 1,250 mg in 250 m ls @ 250 mls/hr 06/17/20 00:00 06/17/20 09:41 Vancocin IV Infused Q48H PAM Infusion Metoclopramide HCl 10 mg 06/17/20 19:43 06/17/20 19:56 Metoclopramide 5 Mg/Ml Sdv 2 Ml IVP 10 mg Q4H PRN Administration NAUSEA AND VOMITI NG Ondansetron HCl 4 mg 06/17/20 19:45 06/18/20 05:04 Ondansetron 2 Mg /Ml Sdv 2 Ml IVP 4 mg Q4H PRN Administration NAUSEA AND VOMITI NG PFSH Anesthesia PFSH: Medical History (Updated 06/17/20 @ 16:45 by Deja Vail MD) Arthritis COPD (chronic obstructive pulmonary disease) Hypertension Incisional hernia Surgical History H/O: hysterectomy S/P cholecystectomy Family History Other Diabetes Denies family history of Cancer Social History Smoking and tobacco status: former smoker Alcohol intake: never Substance/Drug Use: never Data Anesthesia CBC & Chem 7: 06/18/20 05:01 06/18/20 07:06 Other Labs: Laboratory Results - last 48 hr 06/16/20 06/16/20 06/16/20 19:35 19:35 20:00 WBC 19.2 H RBC 4.78 Hgb 13.4 Hct 40.8 MCV 85.4 MCH 28.0 MCHC 32.8 RDW 13.4 Plt Count 277 MPV 10.8 H Neut % (Auto) 86.7 Lymph % (Auto) 3.8 [place] % (Auto) 8.5 Eos % (Auto) 0.1 Baso % (Auto) 0.3 Neut # (Auto) 16.62 H Lymph # (Auto) 0.7 L [place] # (Auto) 1.6 H Eos # (Auto) 0.0 Baso # (Auto) 0.1 Nucleated RBC % (auto) 0 Nucleated RBCs # 0.0 Differential Comment PT INR Sodium 133 L Potassium 3.9 Chloride 95 L Carbon Dioxide 23 Anion Gap 18.9 BUN 19 Creatinine 1.5 H GFR Calculation Not Reportable Glucose 123 H Calculated Osmolality 280 L Lactate Calcium 8.9 Total Bilirubin 0.6 AST 16 ALT 10 Alkaline Phosphatase 70 Total Protein 6.4 L Albumin 3.3 L Globulin 3.1 Lipase 35 Carcinoembryonic Ag Urine Color Yellow Urine Appearance Sl cloudy A Urine pH 5 Ur Specific [place] 1.020 Urine Protein 1+ H Urine Glucose (UA) Norm Urine Ketones 1+ H Urine Blood 2+ H Urine Nitrate Negative Urine Bilirubin 1+ H Urine Urobilinogen 4 H Ur Leukocyte Esterase 2+ H Urine RBC 15-25 H Urine WBC 40-55 H Ur Squamous Epith Cells 55-80 H Amorphous Sediment Not Reportable Urine Bacteria 4+ H Fluid Color Fluid Appearance Fluid pH Fluid WBC Fluid RBC Fld Polynuclear WBCs # Fld Polynuclear WBCs % Fl Mononucl WBCs #(Auto) Fl Mononuclear % Auto Fluid Glucose Fluid Total Protein Fluid Albumin Fluid LDH Fluid Amylase Fluid Alk Phosphatase Fluid Cholesterol Fluid Triglycerides Fluid Uric Acid 06/16/20 06/17/20 06/17/20 21:20 03:50 03:50 WBC 18.7 H RBC 4.95 Hgb 13.9 Hct 43.6 MCV 88.1 MCH 28.1 MCHC 31.9 RDW 13.4 Plt Count 293 MPV 11.2 H Neut % (Auto) 83.6 Lymph % (Auto) 6.4 [place] % (Auto) 8.6 Eos % (Auto) 0.4 Baso % (Auto) 0.3 Neut # (Auto) 15.62 H Lymph # (Auto) 1.2 [place] # (Auto) 1.6 H Eos # (Auto) 0.1 Baso # (Auto) 0.1 Nucleated RBC % (auto) 0 Nucleated RBCs # 0.0 Differential Comment PT INR Sodium 133 L Potassium 3.9 Chloride 96 L Carbon Dioxide 23 Anion Gap 17.9 BUN 20 Creatinine 1.4 H GFR Calculation Not Reportable Glucose 106 Calculated Osmolality 279 L Lactate 1.0 Calcium 8.9 Total Bilirubin AST ALT Alkaline Phosphatase Total Protein Albumin Globulin Lipase Carcinoembryonic Ag Urine Color Urine Appearance Urine pH Ur Specific [place] Urine Protein Urine Glucose (UA) Urine Ketones Urine Blood Urine Nitrate Urine Bilirubin Urine Urobilinogen Ur Leukocyte Esterase Urine RBC Urine WBC Ur Squamous Epith Cells Amorphous Sediment Urine Bacteria Fluid Color Fluid Appearance Fluid pH Fluid WBC Fluid RBC Fld Polynuclear WBCs # Fld Polynuclear WBCs % Fl Mononucl WBCs #(Auto) Fl Mononuclear % Auto Fluid Glucose Fluid Total Protein Fluid Albumin Fluid LDH Fluid Amylase Fluid Alk Phosphatase Fluid Cholesterol Fluid Triglycerides Fluid Uric Acid 06/17/20 06/17/20 06/17/20 09:32 09:32 12:20 WBC RBC Hgb Hct MCV MCH MCHC RDW Plt Count MPV Neut % (Auto) Lymph % (Auto) [place] % (Auto) Eos % (Auto) Baso % (Auto) Neut # (Auto) Lymph # (Auto) [place] # (Auto) Eos # (Auto) Baso # (Auto) Nucleated RBC % (auto) Nucleated RBCs # Differential Comment Yes PT 15.60 H INR 1.20 Sodium Potassium Chloride Carbon Dioxide Anion Gap BUN Creatinine GFR Calculation Glucose Calculated Osmolality Lactate Calcium Total Bilirubin AST ALT Alkaline Phosphatase Total Protein Albumin Globulin Lipase Carcinoembryonic Ag 9.7 H Urine Color Urine Appearance Urine pH Ur Specific [place] Urine Protein Urine Glucose (UA) Urine Ketones Urine Blood Urine Nitrate Urine Bilirubin Urine Urobilinogen Ur Leukocyte Esterase Urine RBC Urine WBC Ur Squamous Epith Cells Amorphous Sediment Urine Bacteria Fluid Color Pale yellow Fluid Appearance Clear Fluid pH 8.0 Fluid WBC 1788 Fluid RBC 0 Fld Polynuclear WBCs # 1.735 Fld Polynuclear WBCs % 97.000 Fl Mononucl WBCs #(Auto) 0.053 Fl Mononuclear % Auto 3.000 Fluid Glucose < 2.0 Fluid Total Protein 4 Fluid Albumin 2.6 Fluid LDH 911 Fluid Amylase 34 Fluid Alk Phosphatase < 5 Fluid Cholesterol 88 Fluid Triglycerides 41 Fluid Uric Acid 6 06/18/20 06/18/20 06/18/20 05:01 05:01 07:06 WBC 14.9 H RBC 5.39 H Hgb 15.0 Hct 46.2 MCV 85.7 MCH 27.8 L MCHC 32.5 RDW 13.7 Plt Count 200 MPV 11.6 H Neut % (Auto) 83.1 Lymph % (Auto) 7.2 [place] % (Auto) 7.2 Eos % (Auto) 1.1 Baso % (Auto) 0.4 Neut # (Auto) 12.36 H Lymph # (Auto) 1.1 [place] # (Auto) 1.1 H Eos # (Auto) 0.2 Baso # (Auto) 0.1 Nucleated RBC % (auto) 0 Nucleated RBCs # 0.0 Differential Comment PT INR Sodium Cancelled 136 Potassium Cancelled 4.1 Chloride Cancelled 100 Carbon Dioxide Cancelled 23 Anion Gap Cancelled 17.1 BUN Cancelled 22 Creatinine Cancelled 1.7 H GFR Calculation Cancelled Not Reportable Glucose Cancelled 141 H Calculated Osmolality Cancelled 288 Lactate Calcium Cancelled 8.6 Total Bilirubin Cancelled 0.9 AST Cancelled 29 ALT Cancelled 17 Alkaline Phosphatase Cancelled 121 H Total Protein Cancelled 6.1 L Albumin Cancelled 3.1 L Globulin Cancelled 3.0 Lipase Carcinoembryonic Ag Urine Color Urine Appearance Urine pH Ur Specific [place] Urine Protein Urine Glucose (UA) Urine Ketones Urine Blood Urine Nitrate Urine Bilirubin Urine Urobilinogen Ur Leukocyte Esterase Urine RBC Urine WBC Ur Squamous Epith Cells Amorphous Sediment Urine Bacteria Fluid Color Fluid Appearance Fluid pH Fluid WBC Fluid RBC Fld Polynuclear WBCs # Fld Polynuclear WBCs % Fl Mononucl WBCs #(Auto) Fl Mononuclear % Auto Fluid Glucose Fluid Total Protein Fluid Albumin Fluid LDH Fluid Amylase Fluid Alk Phosphatase Fluid Cholesterol Fluid Triglycerides Fluid Uric Acid Micro: Microbiology 06/17/20 12:20 Gram Stain - Final Peritoneal Fluid Body Fluid Culture - Preliminary 06/17/20 03:50 Blood Culture - Preliminary Blood NEGATIVE TO DATE 06/16/20 21:20 Blood Culture - Preliminary Blood NEGATIVE TO DATE Cardiac Studies: No Data to Display
--- NOTE | 2020-06-18 13:44 | PC.RESP ---
Pulmonary Rehab information sent to patient.
--- NOTE | 2020-06-18 13:51 | PM.PN ---
Subjective Subjective: Interval history: Patient had a CT-guided drain placed by Dr. Maharaj yesterday, tolerated well, no significant response to antibiotics, patient refused oral bowel prep Vitals/I&O/Wt Last Vital Signs Temp 98.4 F 06/18/20 08:00 Pulse 87 06/18/20 10:00 Resp 17 06/18/20 10:00 BP 132/79 06/18/20 10:00 Pulse Ox 97 06/18/20 10:00 06/17/20 06/18/20 06/18/20 22:59 06:59 14:59 Intake Total 220 / 2555.0 1042.5 / 2555.0 50 / 50 Output Total 610 / 966 205 / 966 150 / 150 Balance -390 / 1589.0 837.5 / 1589.0 -100 / -100 Weight last 48 hrs Weight 130 lb Physical Exam Narrative: EXAM NARRATIVE: Abdomen: Soft, mildly tender, no guarding or rigidity Urinary Catheter Management^: Fernando: Cath Placed During This Visit: yes Reason for Continuing Indwelling Catheter: Accurate Measurement of Urinary Output in Critically Ill Patients Urinary Catheter Date of Insertion: 06/17/20 Urinary Catheter Time of Insertion: 03:50 Data : 06/18/20 05:01 06/18/20 07:06 Micro: Microbiology 06/17/20 12:20 Gram Stain - Final Peritoneal Fluid Anaerobic Culture - Preliminary Body Fluid Culture - Preliminary 06/17/20 03:50 Blood Culture - Preliminary Blood NEGATIVE TO DATE 06/16/20 21:20 Blood Culture - Preliminary Blood NEGATIVE TO DATE A&P Assessment and plan (1) Colonic mass: 80-year-old female with intra-abdominal abscess status post CT-guided drainage who will undergo colonoscopy today to further evaluate the distal transverse colon mass. We will need input from Dr. Brito about her aortic aneurysm Status: Acute Attestations Medical Necessity Statement*: Transverse colon mass Coding Level of Care Code Acute Clearing Distribution Clerk for [facility] [place] Diagnoses Colonic mass K63.89
--- NOTE | 2020-06-18 14:00 | XR_ITS ---
WS: [id number] XR KUB portable [id number] REASON FOR EXAM: NG tube placement FINDINGS: Nasogastric tube placement consistent with the body of the stomach. 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 Pigtail catheter overlying the left upper abdomen, percutaneously placed drainage catheter into peric olic abscess from perforated colon cancer. Multiple significantly dilated small bowel loops and colon consistent with obstruction at the point o f the colon carcinoma. This obstruction was not defined on the CT scan of 06/16/2020 but was present on the CT scan performed during placement of the abscess drain on 06/17/2020. XR/XR KUB portable [id number] IMPRESSION: Nasogastric tube placement with the tip consistent with the body of the stomach . Bowel gas pattern indicative of bowel obstruction related to obstruction of the colon by the previously noted colon cancer or adhesion of small bowel to the p ericolic abscess.
[2020-06-18] MEDS: lidocaine 2% Urojet 20 mL TOPICAL (14:01)
[2020-06-18] MEDS: metoclopramide 5 mg/mL SDV 2 mL 10 MG IVP (14:33)
--- NOTE | 2020-06-18 15:08 | ANE.PACU2 ---
Inpatient post-anesthesia follow up: Airway intact: Yes Vital signs: Temperature 98.5 F Pulse Rate [Monito r] 80 Pulse Rate 90 Respiratory Rate 22 Blood Pressure [Ri ght Arm] 139/73 Blood Pressure 154/86 Pulse Oximetry 91 Oxygen Delivery Me thod [ Nasal Cannula Current Rate & Del carlos] Oxygen Delivery Me thod Nasal Cannula Oxygen Flow Rate [ Current Rate 2 & Delivery] Oxygen Flow Rate 2 Fraction of Inspir ed Oxygen Hydration adequate: Yes Nausea and vomiting: No Pain level: 2 Mental status: Baseline
--- NOTE | 2020-06-18 16:57 | PM.CONSULT ---
Providers/Reason For Consult Consulting Physican/Specialty*: Dr. Brito/cardiothoracic surgery Reason for Consult*: Descending thoracic aneurysm Attending Physician: Deja Vail History of Present Illness History of Present Illness Chastity Cramer is an 80 year old female admitted through the emergency department after presenting with diffuse abdominal pain, obstipation, and no bowel movement for [address] scan of the abdomen which revealed an apple core-like lesion in the left transverse colon, very concerning for malignancy with near obstruction. 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 Upon chart review, I doubt this aneurysm was documented back on December 21, 2006 and measured approximately 4.5 cm at that time. Ms. Cramer is unaware of the aneurysm and cannot recall having been informed of it previously. During my ICU visit, her daughter was at bedside. Her daughter states, however, that she was living in [place] in 2006, and did not assist her mother with her medical care at that time. Ms. Cramer wound drainage yesterday of a 12 x 5 cm fluid collection posterior to the inferior margin of the left transverse colon mass. She has been evaluated by Dr. Fraser from our general surgical service. Colonoscopy has been performed and Ms. Cramer's daughter states that she was informed by Dr. Fraser that he cannot pass the obstruction. I have been consulted concerning surgical opinion related to this descending thoracic aneurysm at the aortic hiatus. She has no history for documented aneurysms elsewhere. Personally reviewed the CT scan performed here during this hospitalization as well as the one documented from December 2006 Review of Systems Const: Denies: fever(s), chills, change in appetite, change in weight, fatigue or night sweats Eyes: Denies: change in vision or blurry vision ENMT: Denies: odynophagia or hoarseness Card: Denies: chest pain, palpitations, irregular heart rhythm or edema Resp: Denies: dyspnea or productive cough GI: Reports: abdominal pain, nausea, vomiting and constipation; Denies: hematemesis, dysphagia, heartburn or change in bowel habits : Denies: dysuria, urinary frequency, urinary urgency or urinary hesitancy Musc: Denies: extremity pain or extremity swelling Skin/Breast: Denies: rash Neuro: Denies: headache(s), numbness in extremities, weakness in extremities or sensory changes Psych: Denies: anxiety, depression or change in appetite Endo: Denies: polyuria, polydipsia or cold intolerance Frantz/Lymph: Denies: easy bruising, easy bleeding, petechiae or enlarged lymph nodes Meds/Allergies Home Medications and Allergies Home Medications Medication Instructions Recorded Confirmed Last Taken Type amlodipine 10 mg PO DAILY@06/17/20 06/17/20 Unknown History ascorbic [id number] 1 ea PO DAILY 06/17/20 06/17/20 Unknown History [Emergen-C] cholecalciferol (vitamin D3) 250 mcg PO DAILY PRN 06/17/20 06/17/20 Unknown History [Vitamin D3] metoprolol succinate 150 mg PO DAILY@06/17/20 06/17/20 Unknown History Allergies Allergy/AdvReac Type Severity Reaction Status Date / Time No Known Allergies Allergy Verified 06/17/20 09:28 Current Medications Current Medications Generic Name Dose Route Start Last Admin Trade Name Freq PRN Reason Stop Dose Admin Hydromorphone HCl 1 mg 06/16/20 23:18 06/18/20 04:41 Hydromorphone 1 Mg/Ml Inj 1 Ml IVP 1 mg Q4H PRN Administration pain Piperacillin Sod/Tazobactam 50 mls @ 12.5 mls/hr 06/17/20 06:00 06/18/20 14:33 Sod 3.375 gm/ Sodium Chloride IV 12.5 mls/hr Q8H PAM Administration Protocol As Directed Potassium Chloride/Dextrose/Sod Cl 20 meq in 1,000 mls @ 75 mls/hr 06/16/20 23:18 06/18/20 02:05 D5-Ns 0.45% + Kcl 20 Meq IV 75 mls/hr .[id number] PAM Administration Vancomycin/PEG/NADA/Lysine/Water 1,250 mg in 250 mls @ 250 mls/hr 06/17/20 00:00 06/17/20 09:41 Vancocin IV Infused Q48H PAM Infusion Sodium Chloride 1,000 mls @ 30 mls/hr 06/18/20 12:15 06/18/20 14:37 Sodium Chloride 0.9% IV 06/19/20 12:14 Not Given .Q24H PAM Metoclopramide HCl 10 mg 06/17/20 19:43 06/18/20 14:33 Metoclopramide 5 Mg/Ml Sdv 2 Ml IVP 10 mg Q4H PRN Administration NAUSEA AND VOMITING Ondansetron HCl 4 mg 06/17/20 19:45 06/18/20 05:04 Ondansetron 2 Mg/Ml Sdv 2 Ml IVP 4 mg Q4H PRN Administration NAUSEA AND VOMITING PFSH Acute PFSH: Medical History Arthritis COPD (chronic obstructive pulmonary disease) Hypertension Incisional hernia Surgical History H/O: hysterectomy S/P cholecystectomy Family History Other Diabetes Denies family history of Cancer Social History Smoking and tobacco status: former smoker Alcohol intake: never Substance/Drug Use: never Vitals/I&O/Wt Last Vital Signs Temp 98.5 F 06/18/20 12:00 Pulse 101 H 06/18/20 15:00 Resp 24 H 06/18/20 15:00 BP 143/87 06/18/20 15:00 Pulse Ox 91 06/18/20 15:00 06/18/20 06/18/20 06/18/20 06:59 14:59 22:59 Intake Total 1042.5 / 2555.0 50 / 50 Output Total 205 / 966 575 / 575 Balance 837.5 / 1589.0 -525 / -525 Weight last 48 hrs Weight 130 lb Physical Exam Narrative: EXAM NARRATIVE: Frail-appearing 80-year-old female currently resting comfortably in the ICU with a NG tube in position. Daughter is at bedside during my exam and interview. Const: COMMON NORMALS: patient oriented x3 Chest: COMMONS NORMALS: normal inspection of the chest and normal palpation of entire chest wall Resp: COMMON NORMALS: normal respiratory effort and clear to auscultation bilaterally EFFORT & INSPECTION: Yes able to speak in complete sentences and Yes symmetric chest movement AUSCULTATION: clear to auscultation bilaterally Cardio: COMMON NORMALS: regular rate, regular rhythm and S1 normal heart sound present PALPATION: normal PMI RATE: regular rate RHYTHM: regular rhythm HEART SOUNDS: S1 normal heart sound present PERIPHERAL PULSES: radial pulses present positive bilateral 2+ Extremity: COMMON NORMALS: no clubbing, cyanosis or edema Neuro: COMMON NORMALS: patient oriented x3, no focal motor deficits and no sensory deficits noted Urinary Catheter Management^: Fernando: Cath Placed During This Visit: yes Reason for Continuing Indwelling Catheter: Accurate Measurement of Urinary Output in Critically Ill Patients Urinary Catheter Date of Insertion: 06/17/20 Urinary Catheter Time of Insertion: 03:50 Data Micro: Micro: Microbiology 06/17/20 12:20 Mycobacterial Smea r - Preliminary Body Fluids - Per itoneal 06/17/20 12:20 Gram Stain - Final Peritoneal Fluid Anaerobic Culture - Preliminary Body Fluid Culture - Preliminary 06/17/20 03:50 Blood Culture - Pr eliminary Blood NEGATIVE TO JA E 06/16/20 21:20 Blood Culture - Pr eliminary Blood NEGATIVE TO JA E A&P Assessment and plan (1) Descending thoracic aortic aneurysm: Frail-appearing 80-year-old female with near obstructing apple core lesion of the left transverse colon, very concerning for malignancy. Incidental finding of a impressive 8 cm descending thoracic aortic aneurysm terminating just proximal to the celiac axis and also noted back on a CT scan of the chest December 2006, at that time measuring 4.4 cm. Given the patient's advanced age and comorbidities, I feel this aneurysm would probably need to be addressed endovascularly though this would be a high specialty endeavor given his proximity to the celiac axis. As well, neurological risk will have to be taken into consideration, though it appears at this time, the near obstructing colonic mass takes precedence. I will be available as needed and greatly appreciate the expertise of Dr. Yoder and Dr. Fraser. 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
--- NOTE | 2020-06-18 17:16 | PM.PN ---
Subjective Subjective: Interval history: 80 year old with past medical history of cholecystectomy, partial hysterectomy, remote tobacco abuse, chronic obstructive pulmonary disease , chronic stage 3 kidney disease with abaseline creatinine around 1.4 and hypertension who presented to the hospital with abdominal pain. Upon admission to the hospital patient's initial laboratory workup showed WBC of 19.2, hemoglobin of 13.4, hematocrit 40.8 and a platelet count of 277. sodium 133, potassium 3.9, chloride 95, bicarb 23, BUN 19 and creatinine 1.5. Most recent creatinine was in 2016 of 1.4. LFTs were within normal limits. CEA was 9.7. UA showed 2+ leukocyte esterace, 40-50 wbc however 55-80 SE cells, 4+ bacteria. CT abd/pelvis showed 8 cm saccular desending thoracic aortic aneurysm w/o rupture. 2.2 x 1.5 right adrenal mass. 5.1 x 4.6 x 6.8 cm apple core lesion in the left transverse colon and large loculated 12.7 x 5.4 x 8.1 cm fluid collection posterior to the inferior margin of the left transverse colon mass with possible connection with the lumen of the mass suggesting possible loculated abscess/perforation versus enlarged duplication cyst. Upon admisison patient was started on vancomycin pharmacy to dose and zosyn 3.375g IV q8hr. In addition was also starrted on IVF with D5 0.45 with KCL 20 Meq at 75cc/hr. General surgery was consulted. On 06/17 patient was taken for CT guided drainage of large peritoneal loculated fluid collection. Analysis of the fluid showed appearance to be clear, pH 8.0, WBC 17 88, 97% PNM, glucose less than 2.0, total protein 4, albumin 2.6, LDH 911, amylase 34, less than 5 alkaline phosphatase, cholesterol 88, triglycerides 41 and uric acid 6. SAAG ratio - 0.7 Patient was kept NPO overnight. Refused oral prep, NG was placed, taken to OR during which time scope could not be advanced past obstruction. This was noted in CTS note. Patient did not have any fever, chills, nausea or vomiting. Medications: Reviewed: Yes Vitals/I&O/Wt Last Vital Signs Temp 98.5 F 06/18/20 12:00 Pulse 104 H 06/18/20 18:00 Resp 26 H 12/14/20 18:00 BP 145/82 06/18/20 18:00 Pulse Ox 92 06/18/20 18:00 06/18/20 06/18/20 06/18/20 06:59 14:59 22:59 Intake Total 1042.5 / 2555.0 50 / 50 1100 / 1150 Output Total 205 / 966 575 / 575 150 / 725 Balance 837.5 / 1589.0 -525 / -525 950 / 425 Physical Exam Narrative: EXAM NARRATIVE: General : Alert, awake on the phone awaiting CT guided drainage. HEENT: Grossly unremakable CVS : NSR CHEST : Non-labored respiration ABD: Distended Ext : no edema Urinary Catheter Management^: Fernando: Cath Placed During This Visit: yes Reason for Continuing Indwelling Catheter: Accurate Measurement of Urinary Output in Critically Ill Patients Urinary Catheter Date of Insertion: 06/17/20 Urinary Catheter Time of Insertion: 03:50 Data : 06/18/20 05:01 06/18/20 07:06 Micro: Microbiology 06/17/20 12:20 Mycobacterial Smear - Preliminary Body Fluids - Peritoneal 06/17/20 12:20 Gram Stain - Final Peritoneal Fluid Anaerobic Culture - Preliminary Body Fluid Culture - Preliminary 06/17/20 03:50 Blood Culture - Preliminary Blood NEGATIVE TO DATE 06/16/20 21:20 Blood Culture - Preliminary Blood NEGATIVE TO DATE A&P Assessment and plan (1) Intra-abdominal abscess: Status: Acute (2) Colonic mass: Status: Acute (3) Constipation: Status: Acute (4) Acute kidney injury superimposed on chronic kidney disease: Status: Acute Intra-abdominal abscess - S/p drain - WBC count improving - Afebrile - Follow up on culture, blood & fluid. - Fluid mycobacterial culture sent - Continue vancomycin pharmacy to dose - Zosyn 3.375g IV q8hr - May consider adding anti-fungal coverage - General surgery on board. - NPO - May consider PICC line and TPN Colonic mass with obstruction likely malignancy - 5.1 x 4.6 x 6.8 cm apple core lesion in the left transverse colon - GS on board - CEA elevated - NG placed - Will follow up on OR report Acute on chronic stage 3 kidney disease - Creatinine baseline 1.4 - 1.5 - IVF - BMP in am - Monitor u/o - low normal - Bolus PRN COPD - Stable Hypertension - Bp stable - Resume meds if hypertensive DVT ppx - SCDS due to invasive procedures - Heparin once ok with surgery Attestations Medical Necessity Statement*: Will require further hospitalization for management of obstruction, colonic mass, aortic aneurysm, intra-bdominal abscess rq IV abx. Time Spent in Patient Care: Greater than 35 minutes (>than 50% of time spent in counselling and/or direct pt care on unit). 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
[2020-06-18] MEDS: magnesium citrate Btl 296 mL PO (18:11)
[2020-06-18] MEDS: Fleet Enema 133 mL Enema PR (18:40)
[2020-06-19] VITALS (26 sets, daily range): BP systolic 102–158; BP diastolic 54–88; PULSE 87–105; RESP 13–25; TEMP 36.6–37.2; O2SAT 91–100
[2020-06-19] MEDS: vancomycin 1,250 MG/250 ML PIGGYBACK 250 MG IV (00:35)
[2020-06-19 04:08] LABS: Basophils # 0.1 10^3/uL (0.0-0.1); Basophils % 0.5 %; Eosinophils # 0.3 10^3/uL (0.0-0.8); Hematocrit 36.6 % (37.0-47.0); Hemoglobin 11.8 g/dL (11.5-15.3); Lymphocytes # 0.8 10^3/uL (0.8-4.8); Lymphocytes % 5.8 %; Mean Corpuscular HGB Conc 32.2 g/dL (30.0-36.0); Mean Corpuscular Volume 86.7 fL (81-99); Monocytes # 1.1 10^3/uL (0.2-0.9); Monocytes % 7.8 %; Neutrophils # 11.65 10^3/uL (1.8-7.7); Neutrophils % 83.1 %; Nucleated Red Blood Cells % 0 %; Platelet Count 265 10^3/cmm (130-400); Red Blood Count 4.22 10^6/uL (4.1-5.3); Red Cell Distribution Width 13.6 % (12.1-15.1)
[2020-06-19] MEDS: D5-NS 0.45% + KCL 20 mEq 20 MEQ/1,000 ML BAG 75 MEQ IV ×2 (04:08→20:40)
[2020-06-19 04:28] LABS: Alanine Aminotransferase 45 U/L (0-33); Albumin Level 2.8 g/dL (3.5-5.2); Alkaline Phosphatase 338 IU/L (35-105); Anion Gap 13.6 (5-19); Aspartate Amino Transferase 74 U/L (0-32); Blood Urea Nitrogen 18 mg/dL (8-23); Calcium 8.5 mg/dL (8.5-10.5); Carbon Dioxide 26 mmol/L (22-29); Chloride 101 mmol/L (98-107); Globulin 3.1 g/dL (1.3-4.6); Glucose 136 mg/dL (65-115); Osmolality Calculated 288 mOsm/kg (285-295); Potassium 3.6 mmol/L (3.5-5.1); Sodium 137 mmol/L (136-145); Total Bilirubin 0.6 mg/dL (0.15-1.2); Total Protein 5.9 g/dL (6.6-8.7)
[2020-06-19] MEDS: piperacillin-tazobactam 3.375 GM in sodium chloride 0.9% (plus) 50 ML IV ×2 (05:13→22:15)
[2020-06-19] MEDS: metoclopramide 5 mg/mL SDV 2 mL 10 MG IVP (07:27)
--- NOTE | 2020-06-19 08:46 | PC.CHAP ---
Pastoral Care Encounter/Spiritual Assessment Type of Contact [] Declined automobile or truck rental dispatcher visit [] Patient/Family/Request visit [] Outpatient visit [] Follow-up visit [] Physician referral [] Code/Alert [] Routine visit [] Staff referral [] Actively dying [] Patient sleeping [] Family support [] [] Out of room [] Palliative care [] [] Receiving care in room [] Pre-surgical visit [] Trauma [] Long length of stay [x] ICU visit [] Other: Relational/Emotional Strength [] Patient feels connected with others/family/visitors/staff [] Distress [] Loneliness/isolation [] Abandonment Spirituality of Patient [] Person of Love [] Attends Zoroastrian of their Love [] Believes in Prayer [] Reads Bible or Jew materials [] There are Spiritual issues to be addressed Application Administrator Interventions [x] Prayer [] Active listening [] Non-anxious presence [] Spiritual/emotional support [] Crisis/trauma care [] Spiritual counseling [] Bereavement support [] Provided bereavement packet [] Provided Bible/devotional materials [] Provided toy/stuffed animal, coloring book to patient or family member [] Provided Communion [] Anointing/[place] [] Salvation [x] Completed spiritual assessment [] Other: Impact on Illness or Injury [] Angry [] Fearful [] Anxious [] Often cries [] Exhaustion [] Unable to work [] Unable to attend hindu [] Unable to walk/stand [] Unable to read [] Unable to drive [] Unable to eat/drink [] Unable to sleep [] Unable to be with family [] Patient intubated [] Other: Summary Time spent with patient
--- NOTE | 2020-06-19 11:23 | P.PN_ITS ---
Subjective Subjective: Interval history: Patient has been stable overnight, no significant output after bowel prep, NG tube to low intermittent suction. Pathology showed adenocarcinoma Vitals/I&O/Wt Last Vital Signs Temp 98.5 F 06/19/20 08:00 Pulse 94 06/19/20 08:00 Resp 19 H 06/19/20 08:00 BP 131/86 06/19/20 08:00 Pulse Ox 96 06/19/20 08:00 06/18/20 06/19/20 06/19/20 22:59 06:59 14:59 Intake Total 1100 / 2221.25 1071.25 / 2221.25 50 / 50 Output Total 315 / 1250 360 / 1250 275 / 275 Balance 785 / 971.25 711.25 / 971.25 -225 / -225 Physical Exam Narrative: EXAM NARRATIVE: Abdomen: Soft, NG tube to low intermittent suction, Fernando to gravity Urinary Catheter Management^: Fernando: Cath Placed During This Visit: yes Reason for Continuing Indwelling Catheter: Accurate Measurement of Urinary Output in Critically Ill Patients Urinary Catheter Date of Insertion: 06/17/20 Urinary Catheter Time of Insertion: 03:50 Data : 06/19/20 03:15 06/19/20 03:15 Micro: Microbiology 06/17/20 12:20 Gram Stain - Final Peritoneal Fluid Anaerobic Culture - Preliminary Anaerobic gram negative rods Body Fluid Culture - Preliminary 06/17/20 12:20 Mycobacterial Smear - Preliminary Body Fluids - Peritoneal A&P Assessment and plan (1) Colonic mass: 80-year-old female with intra-abdominal abscess and obstructing distal transverse colon adenocarcinoma. Plan for left hemicolectomy today discussed in detail the high likelihood of a colostomy. Discussed the results with the patient's daughter yesterday Procedure, risks, benefits and alternatives have been discussed with the patient who wishes to proceed with surgery. 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
--- NOTE | 2020-06-19 13:31 | ANES.PREANE2 ---
Pre-Anesthetic Assessment Pre-Anesthetic Assessment: Height/Weight: Height 1.57 m Weight 58.967 kg Temp Pulse Resp BP Pulse Ox 98.5 F 90 20 H 140/82 92 06/19/20 08:00 06/19/20 12:00 06/19/20 12:00 06/19/20 12:00 06/19/20 12:00 Preop Diagnosis: colon mass Proposed Procedure: Operation Date: 06/18/20 12:00 Proposed Procedures p Colonoscopy(Not Applicable) - Eligio Fraser MD Operation Date: 06/19/20 11:00 Proposed Procedures p Laparoscopic Left Hemicolectomy(Not Applicable) - Eligio Fraser MD Familial anesthetic complications: denies Was Beta Kira taken within 24 hours: Yes Last Intake: 01:00 Social: Social History: No alcohol and No tobacco (Quit 10 years ago roughly ) Exam: Pre-Anes Outpt Exam: alert, oriented x 3 and clear to auscultation bilaterally Airway: Submandibular: WNL Cervical ROM: WNL MP: 2 Dentition: Other (endentulous ) Pulmonary: Pulmonary: COPD and HOLDEN CV/HEM: CV/HEM: HTN Comments: 8 cm thoracic aneurysm, seen by Usha Zapata yesterday to discuss possibility of surgical intervention. : : Chronic renal Insufficiency Hepatic: Hepatic: None reported GI: GI: GERD (controlled with tums ) Metabolic: Metabolic: None reported Musc/skel: Musc/skel: Weakness Neuropsych: Neuropsych: Depression and TIA (several mini stroke ) Anesthetic Plan: ASA status: 3 Anesthesia: Anesthesia Evaluation and General Meds/Allergies Current Medications: Current Medications Generic Name Dose Route Start Last Admin Trade Name Freq PRN Reason Stop Dose Admin Hydromorphone HCl 1 mg 06/16/20 23:18 06/18/20 21:44 Hydromorphone 1 Mg/Ml Inj 1 Ml IVP 1 mg Q4H PRN Administration pain Piperacillin Sod/T azobactam 50 mls @ 12.5 mls /hr 06/17/20 06:00 06/19/20 09:19 Sod 3.375 gm/ So dium Chloride IV Infused Q8H PAM Infusion Protocol As Directed Potassium Chloride /Dextrose/Sod Cl 20 meq in 1,000 m ls @ 75 mls/hr 06/16/20 23:18 06/19/20 04:08 D5-Ns 0.45% + Ashu l 20 Meq IV 75 mls/hr .[id number] PAM Administration Vancomycin/PEG/NAD A/Lysine/Water 1,250 mg in 250 m ls @ 250 mls/hr 06/17/20 00:00 06/19/20 06:45 Vancocin IV Infused Q48H PAM Infusion Metoclopramide HCl 10 mg 06/17/20 19:43 06/19/20 07:27 Metoclopramide 5 Mg/Ml Sdv 2 Ml IVP 10 mg Q4H PRN Administration NAUSEA AND VOMITI NG Ondansetron HCl 4 mg 06/17/20 19:45 06/18/20 21:47 Ondansetron 2 Mg /Ml Sdv 2 Ml IVP 4 mg Q4H PRN Administration NAUSEA AND VOMITI NG PFSH Anesthesia PFSH: Medical History Arthritis COPD (chronic obstructive pulmonary disease) Hypertension Incisional hernia Surgical History H/O: hysterectomy S/P cholecystectomy Family History Other Diabetes Denies family history of Cancer Social History Smoking and tobacco status: former smoker Alcohol intake: never Substance/Drug Use: never Data Anesthesia CBC & Chem 7: 06/19/20 03:15 06/19/20 03:15 Other Labs: Laboratory Results - last 48 hr 06/17/20 06/17/20 06/18/20 09:32 12:20 05:01 WBC 14.9 H RBC 5.39 H Hgb 15.0 Hct 46.2 MCV 85.7 MCH 27.8 L MCHC 32.5 RDW 13.7 Plt Count 200 MPV 11.6 H Neut % (Auto) 83.1 Lymph % (Auto) 7.2 [place] % (Auto) 7.2 Eos % (Auto) 1.1 Baso % (Auto) 0.4 Neut # (Auto) 12.36 H Lymph # (Auto) 1.1 [place] # (Auto) 1.1 H Eos # (Auto) 0.2 Baso # (Auto) 0.1 Nucleated RBC % (auto) 0 Nucleated RBCs # 0.0 Differential Comment Yes Sodium Potassium Chloride Carbon Dioxide Anion Gap BUN Creatinine GFR Calculation Glucose Calculated Osmolality Calcium Total Bilirubin AST ALT Alkaline Phosphatase Total Protein Albumin Globulin Carcinoembryonic Ag 9.7 H Fluid Color Pale yellow Fluid Appearance Clear Fluid Specific Grav 1.010 Fluid pH 8.0 Fluid WBC 1788 Fluid RBC 0 Fld Polynuclear WBCs # 1.735 Fld Polynuclear WBCs % 97.000 Fl Mononucl WBCs #(Auto) 0.053 Fl Mononuclear % Auto 3.000 Fluid Glucose < 2.0 Fluid Total Protein 4 Fluid Albumin 2.6 Fluid LDH 911 Fluid Amylase 34 Fluid Alk Phosphatase < 5 Fluid Cholesterol 88 Fluid Triglycerides 41 Fluid Uric Acid 6 Blood Type Rho(D) Type Antibody Screen 06/18/20 06/18/20 06/18/20 05:01 07:06 16:45 WBC RBC Hgb Hct MCV MCH MCHC RDW Plt Count MPV Neut % (Auto) Lymph % (Auto) [place] % (Auto) Eos % (Auto) Baso % (Auto) Neut # (Auto) Lymph # (Auto) [place] # (Auto) Eos # (Auto) Baso # (Auto) Nucleated RBC % (auto) Nucleated RBCs # Differential Comment Sodium Cancelled 136 Potassium Cancelled 4.1 Chloride Cancelled 100 Carbon Dioxide Cancelled 23 Anion Gap Cancelled 17.1 BUN Cancelled 22 Creatinine Cancelled 1.7 H GFR Calculation Cancelled Not Reportable Glucose Cancelled 141 H Calculated Osmolality Cancelled 288 Calcium Cancelled 8.6 Total Bilirubin Cancelled 0.9 AST Cancelled 29 ALT Cancelled 17 Alkaline Phosphatase Cancelled 121 H Total Protein Cancelled 6.1 L Albumin Cancelled 3.1 L Globulin Cancelled 3.0 Carcinoembryonic Ag Fluid Color Fluid Appearance Fluid Specific Grav Fluid pH Fluid WBC Fluid RBC Fld Polynuclear WBCs # Fld Polynuclear WBCs % Fl Mononucl WBCs #(Auto) Fl Mononuclear % Auto Fluid Glucose Fluid Total Protein Fluid Albumin Fluid LDH Fluid Amylase Fluid Alk Phosphatase Fluid Cholesterol Fluid Triglycerides Fluid Uric Acid Blood Type O Positive Rho(D) Type Positive Antibody Screen Negative 06/19/20 06/19/20 03:15 03:15 WBC 14.0 H RBC 4.22 Hgb 11.8 Hct 36.6 L MCV 86.7 MCH 28.0 MCHC 32.2 RDW 13.6 Plt Count 265 MPV 11.0 H Neut % (Auto) 83.1 Lymph % (Auto) 5.8 [place] % (Auto) 7.8 Eos % (Auto) 2.0 Baso % (Auto) 0.5 Neut # (Auto) 11.65 H Lymph # (Auto) 0.8 [place] # (Auto) 1.1 H Eos # (Auto) 0.3 Baso # (Auto) 0.1 Nucleated RBC % (auto) 0 Nucleated RBCs # 0.0 Differential Comment Sodium 137 Potassium 3.6 Chloride 101 Carbon Dioxide 26 Anion Gap 13.6 BUN 18 Creatinine 1.4 H GFR Calculation Not Reportable Glucose 136 H Calculated Osmolality 288 Calcium 8.5 Total Bilirubin 0.6 AST 74 H ALT 45 H Alkaline Phosphatase 338 H Total Protein 5.9 L Albumin 2.8 L Globulin 3.1 Carcinoembryonic Ag Fluid Color Fluid Appearance Fluid Specific Grav Fluid pH Fluid WBC Fluid RBC Fld Polynuclear WBCs # Fld Polynuclear WBCs % Fl Mononucl WBCs #(Auto) Fl Mononuclear % Auto Fluid Glucose Fluid Total Protein Fluid Albumin Fluid LDH Fluid Amylase Fluid Alk Phosphatase Fluid Cholesterol Fluid Triglycerides Fluid Uric Acid Blood Type Rho(D) Type Antibody Screen Micro: Microbiology 06/17/20 12:20 Gram Stain - Final Peritoneal Fluid Anaerobic Culture - Preliminary Anaerobic gram negative rods Body Fluid Culture - Preliminary 06/17/20 12:20 Mycobacterial Smear - Preliminary Body Fluids - Peritoneal Cardiac Studies: No Data to Display
--- NOTE | 2020-06-19 13:33 | PC.SOCIAL ---
Pg 2 IMM Explained to pt Pg 2 IMM. No questions voiced. Provided pt a copy. Signed, dated, & timed a copy & placed in chart.
--- NOTE | 2020-06-19 16:06 | P.PN_ITS ---
Subjective Medications: Reviewed: Yes Vitals/I&O/Wt Last Vital Signs Temp 98.5 F 06/19/20 08:00 Pulse 98 06/19/20 13:00 Resp 23 H 06/19/20 13:00 BP 152/83 06/19/20 13:00 Pulse Ox 92 06/19/20 13:00 06/19/20 06/19/20 06/19/20 06:59 14:59 22:59 Intake Total 1071.25 / 2221.25 50 / 50 Output Total 360 / 1250 525 / 525 Balance 711.25 / 971.25 -475 / -475 Physical Exam Narrative: EXAM NARRATIVE: General : Alert, awake on the phone awaiting CT guided drainage. HEENT: Grossly unremakable CVS : NSR CHEST : Non-labored respiration ABD: Distended Ext : no edema Urinary Catheter Management^: Fernando: Cath Placed During This Visit: yes Reason for Continuing Indwelling Catheter: Accurate Measurement of Urinary Output in Critically Ill Patients Urinary Catheter Date of Insertion: 06/17/20 Urinary Catheter Time of Insertion: 03:50 Data : 06/19/20 03:15 06/19/20 03:15 Micro: Microbiology 06/17/20 12:20 Gram Stain - Final Peritoneal Fluid Anaerobic Culture - Preliminary Anaerobic gram negative rods Body Fluid Culture - Preliminary 06/17/20 12:20 Mycobacterial Smear - Preliminary Body Fluids - Peritoneal A&P Assessment and plan (1) Intra-abdominal abscess: Status: Acute (2) Colonic mass: Status: Acute (3) Constipation: Status: Acute (4) Acute kidney injury superimposed on chronic kidney disease: Status: Acute Intra-abdominal abscess - S/p drain - WBC count improving - Afebrile - Follow up on culture, blood & fluid. - Fluid mycobacterial culture sent - Continue vancomycin pharmacy to dose - Zosyn 3.375g IV q8hr - May consider adding anti-fungal coverage - General surgery on board. - NPO - May consider PICC line and TPN Colonic mass with obstruction likely malignancy - 5.1 x 4.6 x 6.8 cm apple core lesion in the left transverse colon - GS on board - CEA elevated - NG placed - Will follow up on OR report Acute on chronic stage 3 kidney disease - Creatinine baseline 1.4 - 1.5 - IVF - BMP in am - Monitor u/o - low normal - Bolus PRN COPD - Stable Hypertension - Bp stable - Resume meds if hypertensive DVT ppx - SCDS due to invasive procedures - Heparin once ok with surgery Additional A&P Information Colonic mass Nonobstructing mass noted on CT abdomen patient has history of alternating diarrhea and constipation, one episode of emesis at home without any fever or night sweats, previous colonoscopies as per the patient were unremarkable No family history of colon cancer No active emesis, abdominal pain 0/10 No signs of sepsis, leukocytosis noted Considering good encased fluid collection start her on vancomycin and Zosyn N.p.o., IV fluid resuscitation Dilaudid from analgesia Dr. Fraser notified and consulted Will monitor in ICU, closely monitor for any signs of worsening abdominal pain, peritonitis as she has high risk for rupture loculated collection 12 x 5 x 8 cm Apple core lesion identified in the left transverse colon, RCRI class I, she carries high risk of mortality and morbidity considering her age, however does not have significant coronary disease or history of CHF, she also has high creatinine, For drainage of fluid/abscess and histopathological diagnosis we will follow up with general surgery recommendations Descending thoracic aortic aneurysm No active hemodynamic instability 8 cm saccular descending thoracic aneurysm without rupture or leakage, consider vascular consult for assistance in perioperative management Acute on chronic kidney disease Patient creatinine essentially normal 1-1.4 current creatinine 1.5, I believe this is secondary to dehydration no hydronephrosis identified on CT abdomen, monitor urine output and correlate with creatinine and fluid status Start her on D5 half-normal fluid maintenance rate N.p.o. Full code DVT prophylaxis SCD Daughter wants to be on phone in the morning when Dr. Fraser evaluates her in the morning, had a lengthy discussion with the daughter and the patient regarding all the CT findings, why we need ICU, complications higher risk of mortality and morbidity including risk of , all questions were answered to the satisfaction Daughter's phone number is on the face sheet as well Coding Level of Care Code Acute Business Development Executive for Chg Fwd Diagnoses Intra-abdominal abscess K65.1 Colonic mass K63.89 Constipation K59.00 Acute kidney injury superimposed on chronic kidney disease N17.9; N18.9
--- NOTE | 2020-06-19 16:08 | P.PN_ITS ---
Subjective Subjective: Interval history: 80 year old with past medical history of cholecystectomy, partial hysterectomy, remote tobacco abuse, chronic obstructive pulmonary disease , chronic stage 3 kidney disease with abaseline creatinine around 1.4 and hypertension who presented to the hospital with abdominal pain. Initial laboratory workup showed WBC of 19.2, hemoglobin of 13.4, hematocrit 40.8 and a platelet count of 277. sodium 133, potassium 3.9, chloride 95, bicarb 23, BUN 19 and creatinine 1.5. Most recent creatinine was in 2016 of 1.4. LFTs were within normal limits. CEA was 9.7. UA showed 2+ leukocyte esterace, 40-50 wbc however 55-80 SE cells, 4+ bacteria. CT abd/pelvis showed 8 cm saccular desending thoracic aortic aneurysm w/o rupture. 2.2 x 1.5 right adrenal mass. 5.1 x 4.6 x 6.8 cm apple core lesion in the left transverse colon and large loculated 12.7 x 5.4 x 8.1 cm fluid collection posterior to the inferior margin of the left transverse colon mass with possible connection with the lumen of the mass suggesting possible loculated abscess/perforation versus enlarged duplication cyst. Upon admisison patient was started on vancomycin pharmacy to dose and zosyn 3 .375g IV q8hr. In addition was also starrted on IVF with D5 0.45 with KCL 20 Meq at 75cc/hr. General surgery was consulted. On 06/17 patient was taken for CT guided drainage of large peritoneal loculated fluid collection. Analysis of the fluid showed appearance to be clear, pH 8.0, WBC 17 88, 97% PNM, glucose less than 2.0, total protein 4, albumin 2.6, LDH 911, amylase 34, less than 5 alkaline phosphatase, cholesterol 88, triglycerides 41 and uric acid 6. SAAG ratio - 0.7. CT guided drain was placed. Further colonoscopy was attempted however could not be advanced past obstruction. Biopsy showed adenocarcinoma. Was taken for surgical resection on 06/19. Subjective 06/18 Patient was kept NPO overnight. Refused oral prep, NG was placed, taken to OR during which time scope could not be advanced past obstruction. This was noted in CTS note. Patient did not have any fever, chills, nausea or vomiting. 06/19 NG tube to LIS was continued. No bowel movement post prep. Was seen prior to OR. Planned to proceed with resection. No fever, or chils. drainge decreased on abdominal drain. Medications: Reviewed: Yes Vitals/I&O/Wt Last Vital Signs Temp 98.5 F 06/19/20 08:00 Pulse 98 06/19/20 13:00 Resp 23 H 06/19/20 13:00 BP 152/83 06/19/20 13:00 Pulse Ox 92 06/19/20 13:00 06/19/20 06/19/20 06/19/20 06:59 14:59 22:59 Intake Total 1071.25 / 2221.25 50 / 50 Output Total 360 / 1250 525 / 525 Balance 711.25 / 971.25 -475 / -475 Physical Exam Narrative: EXAM NARRATIVE: General : Alert, awake HEENT: Grossly unremakable - NG to LIS in place CVS : NSR CHEST : Non-labored respiration ABD: Distended Ext : no edema Urinary Catheter Management^: Fernando: Cath Placed During This Visit: yes Reason for Continuing Indwelling Catheter: Accurate Measurement of Urinary Output in Critically Ill Patients Urinary Catheter Date of Insertion: 06/17/20 Urinary Catheter Time of Insertion: 03:50 Data : 06/19/20 03:15 06/19/20 03:15 Micro: Microbiology 06/17/20 12:20 Gram Stain - Final Peritoneal Fluid Anaerobic Culture - Preliminary Anaerobic gram negative rods Body Fluid Culture - Preliminary 06/17/20 12:20 Mycobacterial Smear - Preliminary Body Fluids - Peritoneal A&P Assessment and plan (1) Intra-abdominal abscess: Status: Acute (2) Colonic mass: Status: Acute (3) Constipation: Status: Acute (4) Acute kidney injury superimposed on chronic kidney disease: Status: Acute Intra-abdominal abscess - S/p drain - decrease drainage - Follow up on culture, blood & fluid. - Anerobic culture positive - Fluid mycobacterial culture sent - pending - Continue vancomycin pharmacy to dose - Zosyn 3.375g IV q8hr - May consider adding anti-fungal coverage - General surgery on board. Adenocarcinoma of colon with obstruction - 5.1 x 4.6 x 6.8 cm apple core lesion in the left transverse colon - GS on board - CEA elevated - NG placed to LIS - Colonoscopy 06/18 - biopsy -> pathology showed adenocarcinoma - In or today for resection Acute on chronic stage 3 kidney disease - Creatinine baseline 1.4 - Currently at baseline - IVF - BMP in am - Monitor u/o - low normal - Bolus PRN Thoracic aortic aneurysm - increased in size to 8 - CTS consult noted - High risk for intervention - No current plan for surgery COPD - Stable Hypertension - Bp stable - Resume meds if hypertensive DVT ppx - SCDS due to invasive procedures Attestations Medical Necessity Statement*: Will require further hospitalization for surgery and post op care. Time Spent in Patient Care: Greater than 35 minutes Coding Level of Care Code Acute Small Electric Engine Technician for Chg Fwd Diagnoses Intra-abdominal abscess K65.1 Colonic mass K63.89 Constipation K59.00 Acute kidney injury superimposed on chronic kidney disease N17.9; N18.9
--- NOTE | 2020-06-19 16:26 | ANES.PROC ---
Anesthesia Procedures Procedure/Date: 06/19/20 Central Venous Insert: Time Out Performed: Yes Consent: requested by attending/covering physician, risks and benefits reviewed and patient agrees to proceed Central Line: New Anesthesia monitors: pulse oximetry, EKG, BP cuff and oxygen Vein cannulated: left subclavian Additional Comments: Easy single pass with immediate aspiration of blood from all ports. No complications.
--- NOTE | 2020-06-19 17:41 | P.OP_ITS ---
Operative Report Date of procedure: June 19, 2020 Pre-op Diagnosis: Adenocarcinoma transverse colon Post-op Diagnosis: Adenocarcinoma transverse colon Intra-abdominal abscess adjacent to transverse colon mass No evidence of peritoneal carcinomatosis Procedure Done: Laparoscopic left hemicolectomy with extracorporeal side to side colocolic anastomosis. Specimens removed/disposition: left colectomy specimen involving 2/3 of transverse colon and descending colon. Surgeon: Eligio Fraser Anesthesia: General Estimated blood loss (mL): 150 IV fluids (mL): 1,400 Urine output (mL): 140 Condition: stable Disposition: ICU Procedure: The patient was taken to the operating room and intubated under general anesthesia. Patient was on therapeutic IV antibiotics, an NG tube and Fernando catheter was already in place. A central line and arterial line was placed by anesthesiologist. The abdomen was prepped and draped in a sterile manner. Using a 15 blade a midline infraumbilical longitudinal incision was made and using open Bartlett technique the peritoneal cavity was entered and the 10 mm port was placed and 15 mm of pneumoperitoneum was created and a 10 mm 30 degree scope was introduced. 5 mm ports were placed under direct visualization in the midclavicular line on the right side in the subcostal region, in the suprapubic area and in the left upper quadrant through the existing drain site after the drain was cut and removed. Examination of the peritoneal cavity did not reveal any evidence of carcinomatosis. The abscess in the transverse mesocolon was identified and the small bowel loops adherent to the mesocolon was freed and the transverse colon was retracted cephalad while the patient was placed in steep Trendelenburg position. The abscess cavity was opened loculations taken down and irrigated and suctioned out. The ligament of Treitz was identified and the inferior mesenteric vein was identified lateral to the ligament of Treitz. An opening was made in the peritoneum and the IMV was divided using LigaSure and the retroperitoneal plane was entered to mobilize the descending mesocolon up to the line of Toldt laterally and up to the splenic flexure. The dissection was carried cephalad and the transverse mesocolon was divided from the anterior border of the pancreas. The mid colic artery was identified and divided at its takeoff which was adjacent to the area of significant inflammation where the abscess was present. An opening was made in the greater omentum using LigaSure to enter the lesser sac. The omentum was divided laterally up to the splenic flexure and the splenocolic, phrenocolic and renocolic ligaments were taken down using LigaSure until the splenic flexure was completely mobilized. The division of the transverse mesocolon was extended proximal to the obstructing mass for about 10 cm. At this point the umbilical incision was extended superiorly, subcutaneous tissue and linea alba was divided using electrocautery. A wound protector was placed and the transverse colon and descending colon was exteriorized. The colonic mass was more in the mid transverse colon and majority of the transverse mesocolon had been divided. The proximal transverse colon was approximated to the sigmoid colon which had been mobilized medially. Interrupted 4-0 Vicryl sutures were placed to approximate the 2 segments of the colon and using electrocautery colotomies were created and a 75 mm blue load CORNELL stapler was fired to create a colocolotomy. The colotomies previously created was grasped with Allis clamps and 2 loads of 75 mm blue load CORNELL stapler was fired to divide the transverse colon as well as the descending colon resulting in a [id number] colocolic stapled anastomosis. 4 - 0 Lembert sutures were placed at the edges and intersection of the staple line. The peritoneal cavity was irrigated with 5 L of warm saline since there was contamination of the peritoneal cavity during colotomy. 20 cc of saline mixed with 20 cc of Exparel mixed with 20cc of 0.5% Marcaine was infiltrated in the midclavicular line for a TAP block. The fascia in the midline was then closed with running #1 looped PDS and skin and all incisions were closed with samuel and covered with sterile dressings. The patient was transferred to ICU with NG tube, Fernando catheter, central line and arterial line.
--- NOTE | 2020-06-19 18:07 | XRR_ITS ---
PROCEDURE INFORMATION: Exam: XR Chest, 1 View Exam date and time: 06/19/2020 6:20 PM Age: 80 years old Clinical indication: Device placement; Other: Central line placement TECHNIQUE: Imaging protocol: XR of the chest Views: 1 view. COMPARISON: No relevant prior studies available. FINDINGS: Tubes, catheters and devices: There is a left subclavian central line with tip in the superior vena cava, orogastric tube with tip in the stomach and an ET tube with tip below the clavicular heads and 3 cm above the vishnu. Lungs: Asymmetric hazy ground-glass opacity is noted in the right lung base concerning for mild pneumonitis or atelectasis. Pulmonary vascularity is within normal limits. The lungs are hyperinflated. Pleural space: Trace left pleural effusion versus pleural thickening is noted.No right-sided pleural effusion. No pneumothorax. Heart/Mediastinum: Unremarkable. No cardiomegaly. Vasculature: 8 cm peripherally calcified aneurysm of the descending thoracic aorta described on the prior abdomen pelvis CT is again identified. Bones/joints: No acute abnormality. XR/XR chest 1V portable [id number] IMPRESSION: 1. There is a left subclavian central line with tip in the superior vena cava, orogastric tube with tip in the stomach and an ET tube with tip below the clavicular heads and 3 cm above the vishnu. 2. 8 cm peripherally calcified aneurysm of the descending thoracic aorta described on the prior abdomen pelvis CT is again identified. 3. Hazy ground-glass opacity in the right lung base may reflect mild pneumonitis or atelectasis.
[2020-06-19] MEDS: propofol 1,000 MG/100 ML INJ 3.5 MG IV (18:22)
[2020-06-19 18:26] LABS: Basophils % 0.4 %; Eosinophils # 0.1 10^3/uL (0.0-0.8); Eosinophils % 0.6 %; Hematocrit 40.1 % (37.0-47.0); Hemoglobin 12.5 g/dL (11.5-15.3); Lymphocytes # 0.7 10^3/uL (0.8-4.8); Lymphocytes % 7.8 %; Mean Corpuscular HGB Conc 31.2 g/dL (30.0-36.0); Mean Corpuscular Hemoglobin 28.2 pg (28.0-34.0); Mean Corpuscular Volume 90.3 fL (81-99); Mean Platelet Volume 10.9 fL (7.4-10.4); Monocytes # 0.5 10^3/uL (0.2-0.9); Monocytes % 4.8 %; Neutrophils # 8.13 10^3/uL (1.8-7.7); Neutrophils % 85.4 %; Nucleated Red Blood Cells % 0 %; Platelet Count 323 10^3/cmm (130-400); Red Blood Count 4.44 10^6/uL (4.1-5.3); Red Cell Distribution Width 13.9 % (12.1-15.1); White Blood Count 9.5 10^3/uL (4.0-10.0)
[2020-06-19 18:30] LABS: Alanine Aminotransferase 26 U/L (0-33); Albumin Level 2.6 g/dL (3.5-5.2); Alkaline Phosphatase 215 IU/L (35-105); Anion Gap 16.3 (5-19); Aspartate Amino Transferase 28 U/L (0-32); Blood Urea Nitrogen 12 mg/dL (8-23); Calcium 7.4 mg/dL (8.5-10.5); Carbon Dioxide 19 mmol/L (22-29); Chloride 105 mmol/L (98-107); Globulin 2.6 g/dL (1.3-4.6); Glucose 164 mg/dL (65-115); Osmolality Calculated 287 mOsm/kg (285-295); Potassium 3.3 mmol/L (3.5-5.1); Sodium 137 mmol/L (136-145); Total Bilirubin 0.5 mg/dL (0.15-1.2); Total Protein 5.2 g/dL (6.6-8.7)
[2020-06-19] MEDS: sodium chloride 0.9% 500 ML 999 ML IV (18:45)
[2020-06-19 20:03] LABS: ABG PCO2 36.1 mmHg (35-45); Arterial Blood Gas Hematocrit 41.2 % (37-47); Blood Gas Sample Site Not specified; Blood Gas Sample Type Arterial; HCO3 ABG 17.7 mmol/L (22-26); Oxygen Device VENT
[2020-06-19] MEDS: sodium chloride 0.9% 1,000 ML 30 ML IV (20:40)
[2020-06-19] MEDS: potassium chloride premix 100 ML 25 MEQ IV (20:41)
[2020-06-19] MEDS: HYDROmorphone 1 mg/mL INJ 1 mL IVP (21:12)
[2020-06-20] VITALS (36 sets, daily range): BP systolic 87–135; BP diastolic 47–91; PULSE 76–112; RESP 10–28; TEMP 36.6–37.1; O2SAT 92–100
[2020-06-20] MEDS: HYDROmorphone 1 mg/mL INJ 1 mL IVP ×4 (01:37→18:12)
--- NOTE | 2020-06-20 04:18 | PC.NURSE ---
Pt managed to pull her soft resraint against her arterial line and pulled it out. It alerted the monitor and nursing staff responded immediately. Approx < 10mL of blood loss noted. Applied 10 minutes of manual pressure to the left radial. No bleeding or hematoma noted. Notified hospitalist information technology technician.
[2020-06-20 04:23] LABS: Basophils # 0.1 10^3/uL (0.0-0.1); Basophils % 0.4 %; Eosinophils # 0.1 10^3/uL (0.0-0.8); Eosinophils % 0.8 %; Hemoglobin 11.2 g/dL (11.5-15.3); Lymphocytes # 0.8 10^3/uL (0.8-4.8); Lymphocytes % 4.2 %; Mean Corpuscular HGB Conc 31.1 g/dL (30.0-36.0); Mean Platelet Volume 10.7 fL (7.4-10.4); Monocytes # 1.1 10^3/uL (0.2-0.9); Monocytes % 6.4 %; Neutrophils # 15.65 10^3/uL (1.8-7.7); Neutrophils % 87.2 %; Nucleated Red Blood Cells % 0 %; Platelet Count 284 10^3/cmm (130-400); Red Cell Distribution Width 14.2 % (12.1-15.1)
[2020-06-20 04:45] LABS: Alanine Aminotransferase 32 U/L (0-33); Albumin Level 2.3 g/dL (3.5-5.2); Alkaline Phosphatase 187 IU/L (35-105); Aspartate Amino Transferase 40 U/L (0-32); Blood Urea Nitrogen 17 mg/dL (8-23); Calcium 7.5 mg/dL (8.5-10.5); Carbon Dioxide 20 mmol/L (22-29); Chloride 110 mmol/L (98-107); Globulin 2.6 g/dL (1.3-4.6); Glucose 188 mg/dL (65-115); Osmolality Calculated 293 mOsm/kg (285-295); Sodium 138 mmol/L (136-145); Total Bilirubin 0.7 mg/dL (0.15-1.2); Total Protein 4.9 g/dL (6.6-8.7)
[2020-06-20] MEDS: piperacillin-tazobactam 3.375 GM in sodium chloride 0.9% (plus) 50 ML IV ×3 (05:43→22:35)
--- NOTE | 2020-06-20 07:28 | PM.PN ---
Subjective Subjective: Interval history: Patient is awake, following commands, patient had 60 cc urine output overnight, had 2 bowel movements. Patient received 30 cc of IV fluids per hour, she became hypotensive after the pain meds but otherwise she had been hemodynamically stable Vitals/I&O/Wt Last Vital Signs Temp 98.7 F 06/20/20 06:12 Pulse 95 06/20/20 06:15 Resp 12 06/20/20 06:12 BP 114/66 06/20/20 06:12 Pulse Ox 99 06/20/20 05:42 06/19/20 06/20/20 06/20/20 22:59 06:59 14:59 Intake Total 1603.75 / 2543.75 150 / 2543.75 Output Total 380 / 975 70 / 975 Balance 1223.75 / 1568.75 80 / 1568.75 Physical Exam Narrative: EXAM NARRATIVE: Abdomen: soft , dressings dry and intact, NG tube and Fernando catheter in place Neuro: awake and follows commands Urinary Catheter Management^: Fernando: Cath Placed During This Visit: yes Reason for Continuing Indwelling Catheter: Accurate Measurement of Urinary Output in Critically Ill Patients Urinary Catheter Date of Insertion: 06/17/20 Urinary Catheter Time of Insertion: 03:50 Data : 06/20/20 04:12 06/20/20 06:57 Micro: Microbiology 06/19/20 18:00 Gram Stain - Preliminary Sputum - Endotracheal Tube Aspirate 06/17/20 12:20 Gram Stain - Final Peritoneal Fluid Anaerobic Culture - Preliminary Anaerobic gram negative rods Body Fluid Culture - Preliminary A&P Assessment and plan (1) S/P left hemicolectomy: 80-year-old female status post left hemicolectomy currently on the ventilator on minimal settings Low urine output overnight, creatinine increased to 2.1: 500 cc normal saline bolus, run IV fluids at 100 cc/h, repeat BMP Intra-abdominal abscess: Continue IV Zosyn NG tube to low intermittent suction Fernando to gravity Heparin for DVT prophylaxis Pepcid for GI prophylaxis Patient will need greater than 2 nights of inpatient stay Status: Acute Attestations Medical Necessity Statement*: Status post left hemicolectomy requiring continued inpatient stay Coding Level of Care Code Acute Hospital Medicine Director for [facility] Fwd Diagnoses S/P left hemicolectomy Z90.49
[2020-06-20 07:31] LABS: Anion Gap 15.3 (5-19); Blood Urea Nitrogen 15 mg/dL (8-23); Calcium 7.4 mg/dL (8.5-10.5); Carbon Dioxide 19 mmol/L (22-29); Chloride 109 mmol/L (98-107); Glucose 152 mg/dL (65-115); Osmolality Calculated 290 mOsm/kg (285-295); Potassium 5.3 mmol/L (3.5-5.1); Sodium 138 mmol/L (136-145)
--- NOTE | 2020-06-20 11:52 | P.PN_ITS ---
Subjective Subjective: Interval history: Patient is feeling fine today, though she is still complaining of minimal abdominal pain, she was extubated today, and is fairly doing well post.extubation. Vitals (has remained afebrile ) and labs have been reviewed. Medications: Reviewed: Yes Vitals/I&O/Wt Last Vital Signs Temp 98.7 F 06/20/20 06:12 Pulse 95 06/20/20 06:15 Resp 10 L 06/20/20 07:42 BP 114/66 06/20/20 06:12 Pulse Ox 99 06/20/20 05:42 06/19/20 06/20/20 06/20/20 22:59 06:59 14:59 Intake Total 1603.75 / 2393.75 150 / 2543.75 Output Total 380 / 905 70 / 975 30 / 30 Balance 1223.75 / 1488.75 80 / 1568.75 -30 / -30 Physical Exam Const: COMMON NORMALS: patient oriented x3 HENMT: COMMON NORMALS: normocephalic, atraumatic, hearing grossly normal bilaterally and external ears normal HEAD & SCALP: normocephalic and atraumatic EXTERNAL EAR: Yes external ears normal Eye: COMMON NORMALS: no scleral icterus GENERAL EYE: appearance normal, both eyes and all related structures Chest: COMMONS NORMALS: normal inspection of the chest and normal palpation of entire chest wall CHEST: Yes Symmetrical chest wall rise Resp: COMMON NORMALS: normal respiratory effort, No retractions, No use of accessory muscles and clear to auscultation bilaterally EFFORT & INSPECTION: Yes symmetric chest movement AUSCULTATION: clear to auscultation bilaterally Cardio: COMMON NORMALS: regular rate, regular rhythm, S1 normal heart sound present, S2 normal heart sound present, No gallops present (Cardio), No murmurs present (Cardio), No rub (Cardio) and Peripheral pulses 2+ throughout RATE: regular rate RHYTHM: regular rhythm HEART SOUNDS: S1 normal heart sound present and S2 normal heart sound present PERIPHERAL PULSES: Peripheral pulses 2+ throughout GI: AUSCULTATION: Yes normoactive bowel sounds RECTAL EXAM: deferred OTHER: Clean mid abdominal dressing present. Extremity: COMMON NORMALS: no clubbing, cyanosis or edema and no pedal edema Neuro: COMMON NORMALS: patient oriented x3 Urinary Catheter Management^: Fernando: Cath Placed During This Visit: yes Reason for Continuing Indwelling Catheter: Accurate Measurement of Urinary Output in Critically Ill Patients Urinary Catheter Date of Insertion: 06/17/20 Urinary Catheter Time of Insertion: 03:50 Data : 06/20/20 04:12 06/20/20 06:57 Micro: Microbiology 06/17/20 12:20 Gram Stain - Final Peritoneal Fluid Anaerobic Culture - Preliminary Anaerobic gram negative rods Body Fluid Culture - Final 06/19/20 18:00 Gram Stain - Final Sputum - Endotracheal Tube Aspirate A&P Assessment and plan (1) Intra-abdominal abscess: Status: Acute (2) Colonic mass: Status: Acute (3) Constipation: Status: Acute (4) Acute kidney injury superimposed on chronic kidney disease: Status: Acute Intra-abdominal abscess - S/p drain - decrease drainage - Follow up on culture, blood & fluid. - Anerobic culture positive - Fluid mycobacterial culture sent - pending - Continue vancomycin pharmacy to dose - Zosyn 3.375g IV q8hr -Metronidazole 500 mg IV every 8 hours was added on 06/20 for dual intra-abdomi nal anaerobic coverage. - General surgery on board. 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 - IVF - Monitor BMP - Monitor u/o - Bolus PRN Thoracic aortic aneurysm - increased in size to 8 - CTS consult noted - High risk for intervention - No current plan for surgery COPD - Stable Hypertension - Bp stable - Resume meds if hypertensive DVT ppx - SCDS due to invasive procedures Attestations Medical Necessity Statement*: Patient needs to be in hospital for the management of intra-abdominal abscess, s/p left hemicolectomy for adenocarcinoma of colon with obstruction, as well as OMI. Coding Level of Care Code Acute Forensic Anthropologist for [facility] Fwd Diagnoses Intra-abdominal abscess K65.1 Colonic mass K63.89 Constipation K59.00 Acute kidney injury superimposed on chronic kidney disease N17.9; N18.9
[2020-06-20] MEDS: metroNIDAZOLE IV 500 MG/100 ML PREMIX 100 MG IV ×2 (13:06→20:47)
[2020-06-20] MEDS: sodium chloride 0.9% 1,000 ML 50 ML IV (16:30)
[2020-06-20] MEDS: heparin 5,000 unit/mL INJ 1 mL 5000 UNIT SUBCUT (18:01)
[2020-06-20] MEDS: famotidine 20 mg/2 mL INJ IVP (18:02)
[2020-06-21] VITALS (27 sets, daily range): BP systolic 101–148; BP diastolic 55–81; PULSE 90–116; RESP 13–28; TEMP 36.3–36.9; O2SAT 90–97
[2020-06-21] MEDS: vancomycin 1,250 MG/250 ML PIGGYBACK 250 MG IV (01:41)
[2020-06-21] MEDS: heparin 5,000 unit/mL INJ 1 mL 5000 UNIT SUBCUT ×3 (01:41→17:31)
[2020-06-21] MEDS: HYDROmorphone 1 mg/mL INJ 1 mL IVP ×5 (02:55→23:43)
[2020-06-21 04:52] LABS: Basophils % 0.2 %; Eosinophils % 0.2 %; Hematocrit 30.2 % (37.0-47.0); Hemoglobin 9.2 g/dL (11.5-15.3); Lymphocytes # 0.6 10^3/uL (0.8-4.8); Lymphocytes % 4.9 %; Mean Corpuscular HGB Conc 30.5 g/dL (30.0-36.0); Mean Corpuscular Hemoglobin 27.8 pg (28.0-34.0); Mean Corpuscular Volume 91.2 fL (81-99); Mean Platelet Volume 10.5 fL (7.4-10.4); Monocytes # 0.8 10^3/uL (0.2-0.9); Monocytes % 6.5 %; Neutrophils # 11.09 10^3/uL (1.8-7.7); Neutrophils % 86.7 %; Nucleated Red Blood Cells % 0 %; Platelet Count 207 10^3/cmm (130-400); Red Blood Count 3.31 10^6/uL (4.1-5.3); Red Cell Distribution Width 14.7 % (12.1-15.1); White Blood Count 12.8 10^3/uL (4.0-10.0)
[2020-06-21] MEDS: famotidine 20 mg/2 mL INJ IVP ×2 (04:58→17:32)
[2020-06-21] MEDS: metroNIDAZOLE IV 500 MG/100 ML PREMIX 100 MG IV ×3 (04:58→20:01)
[2020-06-21] MEDS: piperacillin-tazobactam 3.375 GM in sodium chloride 0.9% (plus) 50 ML IV ×3 (05:39→21:06)
[2020-06-21 05:44] LABS: Alanine Aminotransferase 30 U/L (0-33); Alkaline Phosphatase 134 IU/L (35-105); Anion Gap 13.4 (5-19); Aspartate Amino Transferase 31 U/L (0-32); Blood Urea Nitrogen 18 mg/dL (8-23); Calcium 7.9 mg/dL (8.5-10.5); Carbon Dioxide 20 mmol/L (22-29); Chloride 111 mmol/L (98-107); Globulin 2.8 g/dL (1.3-4.6); Glucose 101 mg/dL (65-115); Osmolality Calculated 292 mOsm/kg (285-295); Potassium 4.4 mmol/L (3.5-5.1); Sodium 140 mmol/L (136-145); Total Bilirubin 0.4 mg/dL (0.15-1.2); Total Protein 4.8 g/dL (6.6-8.7)
--- NOTE | 2020-06-21 09:36 | P.PN_ITS ---
Subjective Subjective: Interval history: is doing well.Has remained afebrile,has maintained good B/P though has borderline tachycardia.SCR has improved.urine output is improving.N.G is at low intermittent suction. Other labs have been reviewed. Medications: Reviewed: Yes Vitals/I&O/Wt Last Vital Signs Temp 97.9 F 06/21/20 08:00 Pulse 98 06/21/20 09:00 Resp 23 H 06/21/20 09:00 BP 114/65 06/21/20 09:00 Pulse Ox 91 06/21/20 09:00 06/20/20 06/21/20 06/21/20 22:59 06:59 14:59 Intake Total 1365 / 1435 350 / 1785 100 / 100 Output Total 325 / 390 650 / 1040 Balance 1040 / 1045 -300 / 745 100 / 100 Physical Exam Const: COMMON NORMALS: patient oriented x3 HENMT: COMMON NORMALS: normocephalic and atraumatic HEAD & SCALP: normocephalic and atraumatic Chest: COMMONS NORMALS: normal inspection of the chest CHEST: Yes Symmetrical chest wall rise Resp: COMMON NORMALS: normal respiratory effort and clear to auscultation bilaterally EFFORT & INSPECTION: Yes symmetric chest movement AUSCULTATION: clear to auscultation bilaterally Cardio: COMMON NORMALS: regular rate, regular rhythm, S1 normal heart sound present, S2 normal heart sound present, No gallops present (Cardio), No murmurs present (Cardio), No rub (Cardio) and Peripheral pulses 2+ throughout RATE: regular rate RHYTHM: regular rhythm HEART SOUNDS: S1 normal heart sound present and S2 normal heart sound present PERIPHERAL PULSES: Peripheral pulses 2+ throughout GI: AUSCULTATION: Yes normoactive bowel sounds RECTAL EXAM: deferred OTHER: mid abdominal dressing present. Extremity: COMMON NORMALS: no clubbing, cyanosis or edema and no pedal edema Neuro: COMMON NORMALS: patient oriented x3 Urinary Catheter Management^: Fernando: Cath Placed During This Visit: yes Reason for Continuing Indwelling Catheter: Accurate Measurement of Urinary Output in Critically Ill Patients Urinary Catheter Date of Insertion: 06/17/20 Urinary Catheter Time of Insertion: 03:50 Data : 06/21/20 04:23 06/21/20 04:23 Micro: Microbiology 06/17/20 12:20 Gram Stain - Final Peritoneal Fluid Anaerobic Culture - Preliminary Anaerobic gram negative rods Body Fluid Culture - Final 06/19/20 18:00 Gram Stain - Final Sputum - Endotracheal Tube Aspirate A&P Assessment and plan (1) Intra-abdominal abscess: Status: Acute (2) Colonic mass: Status: Acute (3) Constipation: Status: Acute (4) Acute kidney injury superimposed on chronic kidney disease: Status: Acute Intra-abdominal abscess - S/p drain - decrease drainage - Follow up on culture, blood & fluid. - Anerobic culture positive - Fluid mycobacterial culture sent - pending - Continue vancomycin pharmacy to dose - Zosyn 3.375g IV q8hr -Metronidazole 500 mg IV every 8 hours was added on 06/20 for dual intra- abdominal anaerobic coverage. - General surgery on board. 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 - IVF was discontinued today. - Monitor BMP - Monitor u/o - Bolus PRN Thoracic aortic aneurysm - increased in size to 8 - CTS consult noted - High risk for intervention - No current plan for surgery COPD - Stable Hypertension - Bp stable - Resume meds if hypertensive DVT ppx - SCDS due to invasive procedures Attestations Medical Necessity Statement*: Patient needs to be in hospital for the management of intra-abdominal abscess, s/p left hemicolectomy for adenocarcinoma of colon with obstruction, as well as OMI. Coding Level of Care Code Acute Theater Education Teacher for [facility] Fwd Diagnoses Intra-abdominal abscess K65.1 Colonic mass K63.89 Constipation K59.00 Acute kidney injury superimposed on chronic kidney disease N17.9; N18.9
--- NOTE | 2020-06-21 12:49 | PC.CHAP ---
Pastoral Care Encounter/Spiritual Assessment Type of Contact [] Declined blow pit operator visit [] Patient/Family/Request visit [] Outpatient visit [] Follow-up visit [] Physician referral [] Code/Alert [] Routine visit [] Staff referral [] Actively dying [] Patient sleeping [] Family support [] [] Out of room [] Palliative care [] [] Receiving care in room [] Pre-surgical visit [] Trauma [] Long length of stay [x] ICU visit [] Other: Relational/Emotional Strength [] Patient feels connected with others/family/visitors/staff [] Distress [] Loneliness/isolation [] Abandonment Spirituality of Patient [] Person of Love [] Attends Alevism of their Love [] Believes in Prayer [] Reads Bible or Restorationist materials [] There are Spiritual issues to be addressed Nurses' Association Counselor Interventions [x] Prayer [] Active listening [] Non-anxious presence [] Spiritual/emotional support [] Crisis/trauma care [] Spiritual counseling [] Bereavement support [] Provided bereavement packet [] Provided Bible/devotional materials [] Provided toy/stuffed animal, coloring book to patient or family member [] Provided Communion [] Anointing/[place] [] Salvation [x Completed spiritual assessment [] Other: Impact on Illness or Injury [] Angry [] Fearful [] Anxious [] Often cries [] Exhaustion [] Unable to work [] Unable to attend latter-day [] Unable to walk/stand [] Unable to read [] Unable to drive [] Unable to eat/drink [] Unable to sleep [] Unable to be with family [] Patient intubated [] Other: Summary Time spent with patient
--- NOTE | 2020-06-21 14:56 | PM.PN ---
Subjective Subjective: Interval history: Patient was extubated yesterday, urine output is improved, no flatus or BM. No nausea or vomiting the patient has been a bit confused Vitals/I&O/Wt Last Vital Signs Temp 97.9 F 06/21/20 08:00 Pulse 94 06/21/20 13:29 Resp 22 H 06/21/20 13:00 BP 109/55 06/21/20 13:00 Pulse Ox 92 06/21/20 13:00 06/20/20 06/21/20 06/21/20 22:59 06:59 14:59 Intake Total 1365 / 1785 350 / 1785 150 / 150 Output Total 325 / 1040 650 / 1040 Balance 1040 / 745 -300 / 745 150 / 150 Physical Exam Narrative: EXAM NARRATIVE: Abdomen: Soft, distended, tender, incision clean dry and intact, NG tube to low intermittent suction Fernando to gravity Urinary Catheter Management^: Fernando: Cath Placed During This Visit: yes Reason for Continuing Indwelling Catheter: Accurate Measurement of Urinary Output in Critically Ill Patients Urinary Catheter Date of Insertion: 06/17/20 Urinary Catheter Time of Insertion: 03:50 Data : 06/21/20 04:23 06/21/20 04:23 Micro: Microbiology 06/17/20 12:20 Gram Stain - Final Peritoneal Fluid Anaerobic Culture - Preliminary Bacteroides fragilis Body Fluid Culture - Final A&P Assessment and plan (1) S/P left hemicolectomy: 80-year-old female status post left hemicolectomy doing well, awaiting return of bowel function. Start TPN today at 83 cc/h Intra-abdominal abscess, leukocytosis trending down: Continue IV Zosyn, Flagyl and vancomycin has been added NG tube to low intermittent suction Fernando to gravity Heparin for DVT prophylaxis Pepcid for GI prophylaxis Patient will need greater than 2 nights of inpatient stay Status: Acute Attestations Medical Necessity Statement*: Status post left hemicolectomy overall doing well but required continued ICU monitoring Coding Level of Care Code Acute Metallurgical Engineering Technician for [facility] Fwd Diagnoses S/P left hemicolectomy Z90.49
--- NOTE | 2020-06-21 15:05 | PC.SOCIAL ---
IMM Updated Page 2 of IMM updated and given to patient. Initialed, dated, and timed and placed back in chart.
[2020-06-21] MEDS: AA-Dex 5%-20% w/Lytes 1,000 ML with multivitamin inj 5 ML 42 ML IV (17:27)
[2020-06-21 17:36] LABS: Glucose Point of Care 86 mg/dL (70-110)
[2020-06-21 19:16] LABS: ABG PCO2 33.8 mmHg (35-45); ABG PH Result 7.34 (7.35-7.45); Arterial Blood Gas Hematocrit 36.2 % (37-47); Base Excess ABG -6.9 mmol/L (-2.0-2.0); Blood Gas Sample Site Brachial, right; Blood Gas Sample Type Arterial; HCO3 ABG 18.1 mmol/L (22-26); Oxygen Device VENT
[2020-06-22] VITALS (21 sets, daily range): BP systolic 105–143; BP diastolic 63–84; PULSE 90–116; RESP 16–29; TEMP 36.5–37.2; O2SAT 88–98
[2020-06-22] MEDS: heparin 5,000 unit/mL INJ 1 mL 5000 UNIT SUBCUT ×3 (00:41→17:04)
[2020-06-22] MEDS: HYDROmorphone 1 mg/mL INJ 1 mL IVP ×3 (02:36→17:08)
[2020-06-22] MEDS: metroNIDAZOLE IV 500 MG/100 ML PREMIX 100 MG IV ×3 (03:30→20:14)
[2020-06-22] MEDS: famotidine 20 mg/2 mL INJ IVP ×2 (04:30→17:04)
[2020-06-22 04:42] LABS: Basophils % 0.2 %; Eosinophils # 0.1 10^3/uL (0.0-0.8); Eosinophils % 0.6 %; Hematocrit 27.7 % (37.0-47.0); Hemoglobin 8.5 g/dL (11.5-15.3); Lymphocytes # 0.8 10^3/uL (0.8-4.8); Lymphocytes % 6.2 %; Mean Corpuscular HGB Conc 30.7 g/dL (30.0-36.0); Mean Corpuscular Hemoglobin 27.8 pg (28.0-34.0); Mean Corpuscular Volume 90.5 fL (81-99); Mean Platelet Volume 10.9 fL (7.4-10.4); Monocytes # 0.6 10^3/uL (0.2-0.9); Monocytes % 4.9 %; Neutrophils # 10.36 10^3/uL (1.8-7.7); Neutrophils % 84.1 %; Nucleated Red Blood Cells % 0 %; Platelet Count 252 10^3/cmm (130-400); Red Blood Count 3.06 10^6/uL (4.1-5.3); Red Cell Distribution Width 14.8 % (12.1-15.1); White Blood Count 12.3 10^3/uL (4.0-10.0)
[2020-06-22 05:00] LABS: Alanine Aminotransferase 23 U/L (0-33); Albumin Level 1.9 g/dL (3.5-5.2); Alkaline Phosphatase 183 IU/L (35-105); Anion Gap 9.6 (5-19); Aspartate Amino Transferase 22 U/L (0-32); Blood Urea Nitrogen 18 mg/dL (8-23); Calcium 8.2 mg/dL (8.5-10.5); Carbon Dioxide 25 mmol/L (22-29); Chloride 114 mmol/L (98-107); Globulin 2.9 g/dL (1.3-4.6); Glucose 163 mg/dL (65-115); Osmolality Calculated 305 mOsm/kg (285-295); Potassium 3.6 mmol/L (3.5-5.1); Sodium 145 mmol/L (136-145); Total Bilirubin 0.7 mg/dL (0.15-1.2); Total Protein 4.8 g/dL (6.6-8.7)
[2020-06-22] MEDS: piperacillin-tazobactam 3.375 GM in sodium chloride 0.9% (plus) 50 ML IV ×3 (05:02→21:10)
[2020-06-22 07:50] LABS: Glucose Point of Care 133 mg/dL (70-110)
--- NOTE | 2020-06-22 08:23 | XR_ITS ---
WS: [id number] XR chest 1V portable [id number] REASON FOR EXAM: SOB FINDINGS: Compared to the examination of 06/19/2020, the endotracheal tube has been removed. Left subclavian ce ntral venous line remains in position. Nasogastric tube remains in place, it has been slightly withdr awn. Calcified thoracic aorta moderately tortuous. Normal heart size. Large aortic aneurysm at the level o f the esophageal hiatus. There are infiltrative changes in the lung bases that appears somewhat more extensive than on the pre vious examination. There are bilateral pleural effusions which appear somewhat larger than on the pre vious examination. XR/XR chest 1V portable [id number] IMPRESSION: Endotracheal tube removed. NG tube position changes above. Mild interval change in the lower hemithoraces as above.
--- NOTE | 2020-06-22 09:16 | PC.CHAP ---
Pastoral Care Encounter/Spiritual Assessment Type of Contact [] Declined sports marketing coordinator visit [] Patient/Family/Request visit [] Outpatient visit [] Follow-up visit [] Physician referral [] Code/Alert [] Routine visit [] Staff referral [] Actively dying [] Patient sleeping [] Family support [] [] Out of room [] Palliative care [] [] Receiving care in room [] Pre-surgical visit [] Trauma [] Long length of stay [x] ICU visit [] Other: Relational/Emotional Strength [] Patient feels connected with others/family/visitors/staff [] Distress [] Loneliness/isolation [] Abandonment Spirituality of Patient [] Person of Love [] Attends Jehovah'[employer] Witness of their Love [] Believes in Prayer [] Reads Bible or Gnosticism materials [] There are Spiritual issues to be addressed Siene Maker Interventions [x] Prayer [] Active listening [] Non-anxious presence [] Spiritual/emotional support [] Crisis/trauma care [] Spiritual counseling [] Bereavement support [] Provided bereavement packet [] Provided Bible/devotional materials [] Provided toy/stuffed animal, coloring book to patient or family member [] Provided Communion [] Anointing/Temperance [] Salvation [x] Completed spiritual assessment [] Other: Impact on Illness or Injury [] Angry [] Fearful [] Anxious [] Often cries [] Exhaustion [] Unable to work [] Unable to attend roman catholic [] Unable to walk/stand [] Unable to read [] Unable to drive [] Unable to eat/drink [] Unable to sleep [] Unable to be with family [] Patient intubated [] Other: Summary Time spent with patient
--- NOTE | 2020-06-22 09:39 | P.PN_ITS ---
Subjective Subjective: Interval history: Ms. Cramer, is doing fine, she she is complaining of occasional abdominal pain, which responds well to the pain medications.She has remained afebrile,urine output is good,has been started on ice chips. repeat xray chest this morning was done as the patient was desaturating in the night and requires supplemental oxygen shows worsening left lung base infil trates. Patient is tachypenic though she deny any sob or cough.Currently she is on good abxs will send sputum culture and continue to monitor.Suspicion for COVID is low,hence will resist Rapid testing. no flatus or BM. No nausea or vomiting. Medications: Reviewed: Yes Vitals/I&O/Wt Last Vital Signs Temp 97.9 F 06/22/20 08:00 Pulse 97 06/22/20 08:27 Resp 29 H 06/22/20 08:00 BP 142/76 06/22/20 08:00 Pulse Ox 92 06/22/20 08:27 06/21/20 06/22/20 06/22/20 22:59 06:59 14:59 Intake Total 2750 / 2900 404 / 3304 569.1 / 569.1 Output Total 700 / 700 750 / 1450 Balance 2050 / 2200 -346 / 1854 569.1 / 569.1 Physical Exam Const: COMMON NORMALS: patient oriented x3 HENMT: COMMON NORMALS: normocephalic and atraumatic HEAD & SCALP: normocephalic and atraumatic Chest: COMMONS NORMALS: normal inspection of the chest CHEST: Yes Symmetrical chest wall rise Resp: COMMON NORMALS: normal respiratory effort and clear to auscultation bilaterally EFFORT & INSPECTION: Yes symmetric chest movement AUSCULTATION: clear to auscultation bilaterally Cardio: COMMON NORMALS: regular rate, regular rhythm, S1 normal heart sound present, S2 normal heart sound present and No rub (Cardio) RATE: regular rate RHYTHM: regular rhythm HEART SOUNDS: S1 normal heart sound present and S2 normal heart sound present GI: AUSCULTATION: Yes normoactive bowel sounds RECTAL EXAM: deferred OTHER: Distended, tender, incision site clean dry and intact, NG tube to low intermittent suction Extremity: COMMON NORMALS: no clubbing, cyanosis or edema and no pedal edema Neuro: COMMON NORMALS: patient oriented x3 Urinary Catheter Management^: Fernando: Cath Placed During This Visit: yes Reason for Continuing Indwelling Catheter: Accurate Measurement of Urinary Output in Critically Ill Patients Urinary Catheter Date of Insertion: 06/17/20 Urinary Catheter Time of Insertion: 03:50 Data : 06/22/20 03:25 06/22/20 03:25 Micro: Microbiology 06/17/20 12:20 Gram Stain - Final Peritoneal Fluid Anaerobic Culture - Preliminary Bacteroides fragilis Body Fluid Culture - Final 06/17/20 03:50 Blood Culture - Final Blood NO GROWTH AFTER 5 DAYS 06/16/20 21:20 Blood Culture - Final Blood NO GROWTH AFTER 5 DAYS 06/19/20 18:00 Gram Stain - Final Sputum - Endotracheal Tube Aspirate Sputum Culture - Preliminary A&P Assessment and plan (1) Intra-abdominal abscess: Status: Acute (2) Colonic mass: Status: Acute (3) Constipation: Status: Acute (4) Acute kidney injury superimposed on chronic kidney disease: Status: Acute Intra-abdominal abscess - S/p drain - decrease drainage - Follow up on culture, blood & fluid. - Anerobic culture positive - Fluid mycobacterial culture sent - pending - Continue vancomycin pharmacy to dose - Zosyn 3.375g IV q8hr -Metronidazole 500 mg IV every 8 hours was added on 06/20 for dual intra-ab dominal anaerobic coverage. - General surgery on board. 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: ( 06/19/2020 ) - 5.1 x 4.6 x 6.8 cm apple core lesion in the left transverse colon - GS on board - CEA elevated - NG placed to LIS - Colonoscopy 06/18 - biopsy -> pathology showed adenocarcinoma OMI on CKD 3 kidney disease (Resolved ) - Creatinine baseline 1.4 - Currently SCR is 1.2 - IVF was discontinued - Monitor BMP - Monitor u/o Thoracic aortic aneurysm - increased in size to 8 - CTS consult noted - High risk for intervention - No current plan for surgery COPD - Stable Hypertension - Bp stable - Resume meds if hypertensive DVT ppx - SCDS due to invasive procedures - Nutrition : Has been started on TPN Attestations Medical Necessity Statement*: Patient needs to be in hospital for the post op care of Status post left hemicolectomy and the need for I.V abxs for intraabdomianl abscess. Coding Level of Care Code Acute Customer Operations Associate for [facility] Fwd Diagnoses Intra-abdominal abscess K65.1 Colonic mass K63.89 Constipation K59.00 Acute kidney injury superimposed on chronic kidney disease N17.9; N18.9
--- NOTE | 2020-06-22 10:20 | PC.NURSE ---
mccann catheter removed Patient tolerated well. catheter intact.
[2020-06-22 11:41] LABS: Glucose Point of Care 167 mg/dL (70-110)
[2020-06-22] MEDS: AA-Dex 5%-20% w/Lytes 1,000 ML with multivitamin inj 5 ML 83 ML IV (14:15)
[2020-06-22 16:28] LABS: Lactate (Lactic Acid level) 1.4 mmol/L (0.5-2.2)
[2020-06-22 16:31] LABS: Glucose Point of Care 209 mg/dL (70-110)
[2020-06-22 16:35] LABS: Procalcitonin 1.85 ng/mL (0-0.5)
--- NOTE | 2020-06-22 17:06 | PM.PN ---
Subjective Subjective: Interval history: Patient appears to be a bit confused, denies any nausea or vomiting, NG tube clogged and suction. No flatus or BM Vitals/I&O/Wt Last Vital Signs Temp 98.9 F 06/22/20 15:42 Pulse 98 06/22/20 15:42 Resp 18 06/22/20 15:42 BP 134/77 06/22/20 15:42 Pulse Ox 92 06/22/20 15:42 06/22/20 06/22/20 06/22/20 06:59 14:59 22:59 Intake Total 404 / 3873.1 1055.0 / 1055.0 Output Total 750 / 1450 550 / 800 250 / 800 Balance -346 / 2423.1 505.0 / 255.0 -250 / 255.0 Physical Exam Narrative: EXAM NARRATIVE: Abdomen: Soft, tender, mildly distended, incision clean dry and intact, NG to low intermittent suction Fernando to gravity Urinary Catheter Management^: Fernando: Cath Placed During This Visit: yes Reason for Continuing Indwelling Catheter: Accurate Measurement of Urinary Output in Critically Ill Patients Urinary Catheter Date of Insertion: 06/17/20 Urinary Catheter Time of Insertion: 03:50 Data : 06/22/20 03:25 06/22/20 03:25 Micro: Microbiology 06/19/20 18:00 Gram Stain - Final Sputum - Endotracheal Tube Aspirate Sputum Culture - Final 06/17/20 12:20 Gram Stain - Final Peritoneal Fluid Anaerobic Culture - Preliminary Bacteroides fragilis Body Fluid Culture - Final 06/17/20 03:50 Blood Culture - Final Blood NO GROWTH AFTER 5 DAYS 06/16/20 21:20 Blood Culture - Final Blood NO GROWTH AFTER 5 DAYS A&P Assessment and plan (1) S/P left hemicolectomy: 80-year-old female status post left hemicolectomy doing well, awaiting return of bowel function. TPN at 83 cc/h Intra-abdominal abscess, leukocytosis trending down: Continue IV Zosyn, Flagyl and vancomycin Hemoglobin: Down to 8.5, continue to monitor Creatinine: Down to 1.2 NG tube to low intermittent suction DC Fernando Heparin for DVT prophylaxis Pepcid for GI prophylaxis Patient will need greater than 2 nights of inpatient stay Status: Acute Attestations Medical Necessity Statement*: Status post left hemicolectomy requiring continued inpatient stay Coding Level of Care Code Acute Paper Cone Drying Machine Operator for [facility] Fwd Diagnoses S/P left hemicolectomy Z90.49
[2020-06-22] MEDS: ipratropium-albuterol 3 mL Neb INHALATION (20:47)
[2020-06-22 21:06] LABS: Glucose Point of Care 192 mg/dL (70-110)
[2020-06-23] VITALS (10 sets, daily range): BP systolic 123–162; BP diastolic 68–98; PULSE 78–115; RESP 15–20; TEMP 36.5–37.1; O2SAT 94–95
[2020-06-23 00:16] LABS: Vancomycin Trough 7.7 ug/mL (10-15)
[2020-06-23] MEDS: vancomycin 1,250 MG/250 ML PIGGYBACK 250 MG IV (00:31)
[2020-06-23] MEDS: heparin 5,000 unit/mL INJ 1 mL 5000 UNIT SUBCUT ×3 (00:32→17:35)
[2020-06-23] MEDS: AA-Dex 5%-20% w/Lytes 1,000 ML with multivitamin inj 5 ML 83 ML IV ×2 (01:09→15:18)
[2020-06-23] MEDS: metroNIDAZOLE IV 500 MG/100 ML PREMIX 100 MG IV ×3 (04:29→21:00)
[2020-06-23 05:35] LABS: Basophils # 0.1 10^3/uL (0.0-0.1); Basophils % 0.5 %; Hematocrit 30.9 % (37.0-47.0); Hemoglobin 9.5 g/dL (11.5-15.3); Lymphocytes # 0.6 10^3/uL (0.8-4.8); Lymphocytes % 4.1 %; Mean Corpuscular HGB Conc 30.7 g/dL (30.0-36.0); Mean Corpuscular Hemoglobin 27.9 pg (28.0-34.0); Mean Corpuscular Volume 90.6 fL (81-99); Mean Platelet Volume 10.9 fL (7.4-10.4); Monocytes % 6.6 %; Neutrophils # 12.32 10^3/uL (1.8-7.7); Nucleated Red Blood Cells % 0.1 %; Platelet Count 293 10^3/cmm (130-400); Red Blood Count 3.41 10^6/uL (4.1-5.3); Red Cell Distribution Width 14.7 % (12.1-15.1); White Blood Count 15.1 10^3/uL (4.0-10.0)
[2020-06-23] MEDS: piperacillin-tazobactam 3.375 GM in sodium chloride 0.9% (plus) 50 ML IV ×3 (05:40→22:16)
[2020-06-23 06:08] LABS: Alanine Aminotransferase 19 U/L (0-33); Albumin Level 2.4 g/dL (3.5-5.2); Alkaline Phosphatase 145 IU/L (35-105); Anion Gap 13.3 (5-19); Aspartate Amino Transferase 12 U/L (0-32); Blood Urea Nitrogen 23 mg/dL (8-23); Calcium 8.5 mg/dL (8.5-10.5); Carbon Dioxide 22 mmol/L (22-29); Chloride 110 mmol/L (98-107); Creatinine Clr Calc Pharmacy 40.8146; Glucose 201 mg/dL (65-115); Osmolality Calculated 303 mOsm/kg (285-295); Potassium 3.3 mmol/L (3.5-5.1); Sodium 142 mmol/L (136-145); Total Bilirubin 0.3 mg/dL (0.15-1.2); Total Protein 5.4 g/dL (6.6-8.7)
[2020-06-23] MEDS: famotidine 20 mg/2 mL INJ IVP ×2 (06:40→17:35)
[2020-06-23 07:26] LABS: Glucose Point of Care 183 mg/dL (70-110)
[2020-06-23] MEDS: ipratropium-albuterol 3 mL Neb INHALATION ×2 (07:53→20:27)
[2020-06-23 08:23] LABS: Neutrophils % 88.8 %
[2020-06-23 08:24] LABS: Slide Review Slide Review Perform
[2020-06-23 10:53] LABS: Glucose Point of Care 214 mg/dL (70-110)
--- NOTE | 2020-06-23 10:56 | XRR_ITS ---
PROCEDURE INFORMATION: Exam: XR Abdomen, 2 Views Exam date and time: 06/23/2020 12:34 PM Age: 80 years old Clinical indication: Nausea; Patient HX: Ng placement; Additional info: Post left hemicolectomy TECHNIQUE: Imaging protocol: XR of the abdomen. Views: 2 Views. COMPARISON: CR XR KUB portable [id number] 06/18/2020 4:13 PM FINDINGS: Tubes, catheters and devices: A nasogastric tube is present with the tip projecting in the stomach. Clips are present in the right upper quadrant from cholecystectomy a left subclavian catheter is present with its tip projecting in the SVC.. There is a row of samuel in a midline incision. A pigtail drain that was present in the left side of the abdomen on the previous radiograph is no longer present. Gastrointestinal tract: There are loops of dilated bowel in the right lower quadrant measuring up to 6 cm in diameter. It is difficult to determine from this radiograph further this is gas in the sigmoid colon or distal ileum. Partial small bowel obstruction cannot be excluded based on this view. Clinical correlation and follow-up radiographs are advised. Intraperitoneal space: Normal. No free air. Bones/joints: Unremarkable for age. XR/XR abdomen min 2V [id number] IMPRESSION: 1. A nasogastric tube is present with the tip projecting in the stomach. 2. There are a few loops of dilated bowel in the right lower quadrant. It is difficult to determine whether this is sigmoid colon or distal small bowel. Partial obstruction cannot be excluded on this view. Clinical correlation and follow-up radiographs are advised.
--- NOTE | 2020-06-23 10:57 | P.PN_ITS ---
Subjective Subjective: Interval history: Patient has some nausea, denies any flatus or BM, NG tube to suction Vitals/I&O/Wt Last Vital Signs Temp 98.5 F 06/23/20 07:41 Pulse 102 H 06/23/20 08:00 Resp 17 06/23/20 07:54 BP 134/68 06/23/20 07:41 Pulse Ox 94 06/23/20 07:54 06/22/20 06/23/20 06/23/20 22:59 06:59 14:59 Intake Total 150 / 2359.7 1054.7 / 2359.7 200 / 200 Output Total 250 / 1775 975 / 1775 Balance -100 / 584.7 79.7 / 584.7 200 / 200 Physical Exam Narrative: EXAM NARRATIVE: Abdomen: Soft, tender, mildly distended, incision clean dry and intact Urinary Catheter Management^: Fernando: Cath Placed During This Visit: yes Reason for Continuing Indwelling Catheter: Accurate Measurement of Urinary Output in Critically Ill Patients Urinary Catheter Date of Insertion: 06/17/20 Urinary Catheter Time of Insertion: 03:50 Data : 06/23/20 04:34 06/23/20 04:34 Micro: Microbiology 06/19/20 18:00 Gram Stain - Final Sputum - Endotracheal Tube Aspirate Sputum Culture - Final 06/17/20 12:20 Gram Stain - Final Peritoneal Fluid Anaerobic Culture - Preliminary Bacteroides fragilis Body Fluid Culture - Final A&P Assessment and plan (1) S/P left hemicolectomy: 80-year-old female status post left hemicolectomy doing well, awaiting return of bowel function. 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
--- NOTE | 2020-06-23 11:20 | PC.SOCIAL ---
IMM Updated Page 2 of IMM updated and given to patient. Initialed, dated, and timed and placed back in chart.
[2020-06-23] MEDS: metoclopramide 5 mg/mL SDV 2 mL 10 MG IVP (11:51)
--- NOTE | 2020-06-23 12:09 | PM.PN ---
Subjective Subjective: Interval history: Patient was complaining of some nausea this morning, other than that she denied any other complaints. denies any flatus or BM, NG tube to suction Vitals and labs reviewed. Medications: Reviewed: Yes Vitals/I&O/Wt Last Vital Signs Temp 98.5 F 06/23/20 07:41 Pulse 102 H 06/23/20 08:00 Resp 17 06/23/20 07:54 BP 134/68 06/23/20 07:41 Pulse Ox 94 06/23/20 07:54 06/22/20 06/23/20 06/23/20 22:59 06:59 14:59 Intake Total 150 / 1305.0 1054.7 / 2359.7 250 / 250 Output Total 250 / 800 975 / 1775 Balance -100 / 505.0 79.7 / 584.7 250 / 250 Physical Exam Const: COMMON NORMALS: patient oriented x3 HENMT: COMMON NORMALS: normocephalic and atraumatic HEAD & SCALP: normocephalic and atraumatic Eye: COMMON NORMALS: no scleral icterus GENERAL EYE: appearance normal, both eyes and all related structures Chest: COMMONS NORMALS: normal inspection of the chest CHEST: Yes Symmetrical chest wall rise Resp: COMMON NORMALS: normal respiratory effort and clear to auscultation bilaterally EFFORT & INSPECTION: Yes symmetric chest movement AUSCULTATION: clear to auscultation bilaterally Cardio: COMMON NORMALS: regular rate, regular rhythm, S1 normal heart sound present, S2 normal heart sound present, No gallops present (Cardio), No murmurs present (Cardio), No rub (Cardio) and Peripheral pulses 2+ throughout RATE: regular rate RHYTHM: regular rhythm HEART SOUNDS: S1 normal heart sound present and S2 normal heart sound present PERIPHERAL PULSES: Peripheral pulses 2+ throughout GI: AUSCULTATION: Yes normoactive bowel sounds RECTAL EXAM: deferred OTHER: Soft, tender, mildly distended, incision clean dry and intact Extremity: COMMON NORMALS: no clubbing, cyanosis or edema and no pedal edema Neuro: COMMON NORMALS: patient oriented x3 Urinary Catheter Management^: Fernando: Cath Placed During This Visit: yes Reason for Continuing Indwelling Catheter: Accurate Measurement of Urinary Output in Critically Ill Patients Urinary Catheter Date of Insertion: 06/17/20 Urinary Catheter Time of Insertion: 03:50 Data : 06/23/20 04:34 06/23/20 04:34 Micro: Microbiology 06/19/20 18:00 Gram Stain - Final Sputum - Endotracheal Tube Aspirate Sputum Culture - Final 06/17/20 12:20 Gram Stain - Final Peritoneal Fluid Anaerobic Culture - Preliminary Bacteroides fragilis Body Fluid Culture - Final A&P Assessment and plan (1) Intra-abdominal abscess: Status: Acute (2) Colonic mass: Status: Acute (3) Postoperative ileus: Status: Acute (4) Constipation: Status: Acute (5) Acute kidney injury superimposed on chronic kidney disease: Status: Acute Intra-abdominal abscess - S/p drain - decrease drainage - Follow up on culture, blood & fluid. - Anerobic culture positive: Bacteroids fragilis: - Fluid mycobacterial culture sent - pending - Continue vancomycin pharmacy to dose - Zosyn 3.375g IV q8hr -Metronidazole 500 mg IV every 8 hours was added on 06/20 for dual intra-abdominal anaerobic coverage. - General surgery on board. 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: ( 06/19/2020 ) - 5.1 x 4.6 x 6.8 cm apple core lesion in the left transverse colon - GS on board - CEA elevated - NG placed to LIS - Colonoscopy 06/18 - biopsy -> pathology showed adenocarcinoma OMI on CKD 3 kidney disease (Resolved ) - Creatinine baseline 1.4 - Currently SCR is:0.9 - IVF was discontinued - Monitor BMP - Monitor u/o Thoracic aortic aneurysm - increased in size to 8 - CTS consult noted - High risk for intervention - No current plan for surgery COPD - Stable Hypertension - Bp stable - Resume meds if hypertensive DVT ppx - SCDS due to invasive procedures - Nutrition : Has been started on TPN Additional A&P Information DVT ppx - SCDS due to invasive procedures - Nutrition : Has been started on TPN -CODE STATUS: Full code Attestations Medical Necessity Statement*: Needs to be in hospital for the management of status postop left hemicolectomy, postop ileus Coding Level of Care Code Acute Block Operator for Chg Fwd Diagnoses Intra-abdominal abscess K65.1 Colonic mass K63.89 Postoperative ileus K91.89; K56.7 Constipation K59.00 Acute kidney injury superimposed on chronic kidney disease N17.9; N18.9
[2020-06-23] MEDS: FUROsemide 20 mg Tablet PO (15:25)
[2020-06-23 17:01] LABS: Glucose Point of Care 237 mg/dL (70-110)
[2020-06-23] MEDS: ondansetron 2 mg/ML SDV 2 mL 4 MG IVP (17:41)
[2020-06-23 21:17] LABS: Glucose Point of Care 182 mg/dL (70-110)
[2020-06-24] VITALS (9 sets, daily range): BP systolic 134–161; BP diastolic 67–93; PULSE 101–105; RESP 16–19; TEMP 36.7–37.2; O2SAT 93–95
[2020-06-24] MEDS: heparin 5,000 unit/mL INJ 1 mL 5000 UNIT SUBCUT ×3 (00:44→17:21)
[2020-06-24 03:14] LABS: Basophils # 0.1 10^3/uL (0.0-0.1); Basophils % 0.7 %; Eosinophils # 0.1 10^3/uL (0.0-0.8); Eosinophils % 0.7 %; Hematocrit 32.9 % (37.0-47.0); Hemoglobin 10.1 g/dL (11.5-15.3); Lymphocytes # 1.3 10^3/uL (0.8-4.8); Lymphocytes % 7.8 %; Mean Corpuscular HGB Conc 30.7 g/dL (30.0-36.0); Mean Corpuscular Hemoglobin 27.6 pg (28.0-34.0); Mean Corpuscular Volume 89.9 fL (81-99); Mean Platelet Volume 10.5 fL (7.4-10.4); Monocytes # 1.4 10^3/uL (0.2-0.9); Monocytes % 8.9 %; Neutrophils # 11.89 10^3/uL (1.8-7.7); Neutrophils % 73.4 %; Nucleated Red Blood Cells % 0.2 %; Platelet Count 344 10^3/cmm (130-400); Red Blood Count 3.66 10^6/uL (4.1-5.3); Red Cell Distribution Width 14.8 % (12.1-15.1); White Blood Count 16.2 10^3/uL (4.0-10.0)
[2020-06-24 03:19] LABS: Blood Urea Nitrogen 36 mg/dL (8-23); Calcium 8.3 mg/dL (8.5-10.5); Carbon Dioxide 23 mmol/L (22-29); Chloride 112 mmol/L (98-107); Glucose 211 mg/dL (65-115); Osmolality Calculated 315 mOsm/kg (285-295); Sodium 145 mmol/L (136-145)
[2020-06-24] MEDS: metroNIDAZOLE IV 500 MG/100 ML PREMIX 100 MG IV ×3 (03:50→20:42)
[2020-06-24] MEDS: AA-Dex 5%-20% w/Lytes 1,000 ML with multivitamin inj 5 ML 83 ML IV ×2 (03:50→15:59)
[2020-06-24] MEDS: famotidine 20 mg/2 mL INJ IVP ×2 (05:04→17:22)
[2020-06-24] MEDS: piperacillin-tazobactam 3.375 GM in sodium chloride 0.9% (plus) 50 ML IV ×3 (05:28→23:29)
[2020-06-24 06:50] LABS: Glucose Point of Care 237 mg/dL (70-110)
--- NOTE | 2020-06-24 06:51 | PC.NURSE ---
SHIFT SUMMARY Patient did not have any nausea or vomiting through the night. NG output is 300ml. Patient has a small liquid bowel movement. Patient did not sleep much but did not complain of any pain. Vitals WNL.
[2020-06-24] MEDS: ipratropium-albuterol 3 mL Neb INHALATION (07:58)
[2020-06-24 10:49] LABS: Glucose Point of Care 196 mg/dL (70-110)
--- NOTE | 2020-06-24 12:35 | PM.PN ---
Subjective Subjective: Interval history: Patient denies any nausea or vomiting today, had 3 loose bowel movements, feels a bit distended, abdominal pain is controlled Vitals/I&O/Wt Last Vital Signs Temp 98.5 F 06/24/20 07:48 Pulse 101 H 06/24/20 08:03 Resp 17 06/24/20 07:58 BP 157/93 06/24/20 07:48 Pulse Ox 94 06/24/20 07:58 06/23/20 06/24/20 06/24/20 22:59 06:59 14:59 Intake Total 150 / 2660 1155 / 2660 Output Total 550 / 850 300 / 850 Balance -400 / 1810 855 / 1810 Physical Exam Narrative: EXAM NARRATIVE: Abdomen: Soft, distended, normally tender, incision clean dry and intact Urinary Catheter Management^: Fernando: Cath Placed During This Visit: yes Reason for Continuing Indwelling Catheter: Accurate Measurement of Urinary Output in Critically Ill Patients Urinary Catheter Date of Insertion: 06/17/20 Urinary Catheter Time of Insertion: 03:50 Data : 06/24/20 02:30 06/24/20 02:30 Micro: Microbiology 06/17/20 12:20 Gram Stain - Final Peritoneal Fluid Anaerobic Culture - Preliminary Bacteroides fragilis Body Fluid Culture - Final A&P Assessment and plan (1) S/P left hemicolectomy: 80-year-old female status post left hemicolectomy doing well, awaiting return of bowel function. Clamp NG tube, start clear liquid diet TPN at 83 cc/h Intra-abdominal abscess, WBC up to 16.2, afebrile: Continue IV Zosyn, Flagyl Hemoglobin: Stable at 10.1, continue to monitor Creatinine: Stable at 1.1 To assess for possible rehab, consult case management IS Heparin for DVT prophylaxis Pepcid for GI prophylaxis Patient will need greater than 2 nights of inpatient stay Start lactulose 15 cc p.o. 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
[2020-06-24] MEDS: lactulose oral liq 20 gm/30 mL UDC 10 GM PO ×2 (13:55→23:46)
--- NOTE | 2020-06-24 16:17 | PC.NURSE ---
Patient NG was clamped and a trial of clear liquids were attempted. Patient did not get nauseous until a couple of hours after lunch. Patient vomited approximately 150mL of green/brown emesis. Hooked patient back up to suction and obtained approximately 150mL out. Patient experienced relief.
[2020-06-24 16:49] LABS: Glucose Point of Care 214 mg/dL (70-110)
--- NOTE | 2020-06-24 20:13 | PM.PN ---
Subjective Subjective: Interval history: Patient has remained afebrile, though she has remained tachycardic, most likely due to pain, she continues to saturate well on room air and minimal oxygen through nasal cannula. Currently denies any nausea or vomiting had 3 loose bowel movements. Other vitals and labs have been reviewed. NG tube clamped, clear liquid diet. Medications: Reviewed: Yes Vitals/I&O/Wt Last Vital Signs Temp 98.9 F 06/24/20 19:48 Pulse 105 H 06/24/20 19:48 Resp 19 H 06/24/20 19:48 BP 137/83 06/24/20 19:48 Pulse Ox 93 06/24/20 19:48 06/24/20 06/24/20 06/24/20 06:59 14:59 22:59 Intake Total 1155 / 2660 150 / 150 1005 / 1155 Output Total 300 / 850 240 / 240 740 / 980 Balance 855 / 1810 -90 / -90 265 / 175 Physical Exam Const: COMMON NORMALS: patient oriented x3 HENMT: COMMON NORMALS: normocephalic and atraumatic HEAD & SCALP: normocephalic and atraumatic Chest: COMMONS NORMALS: normal inspection of the chest CHEST: Yes Symmetrical chest wall rise Resp: COMMON NORMALS: normal respiratory effort and clear to auscultation bilaterally EFFORT & INSPECTION: Yes symmetric chest movement AUSCULTATION: clear to auscultation bilaterally Cardio: COMMON NORMALS: regular rate, regular rhythm, S1 normal heart sound present, S2 normal heart sound present, No gallops present (Cardio), No murmurs present (Cardio), No rub (Cardio) and Peripheral pulses 2+ throughout RATE: regular rate RHYTHM: regular rhythm HEART SOUNDS: S1 normal heart sound present and S2 normal heart sound present PERIPHERAL PULSES: Peripheral pulses 2+ throughout GI: COMMON NORMALS: Normal to inspection, nondistended, normoactive bowel sounds present RECTAL EXAM: deferred OTHER: Soft, distended, normally tender, incision clean dry and intact Extremity: COMMON NORMALS: no clubbing, cyanosis or edema and no pedal edema Neuro: COMMON NORMALS: patient oriented x3 Urinary Catheter Management^: Fernando: Cath Placed During This Visit: yes Reason for Continuing Indwelling Catheter: Accurate Measurement of Urinary Output in Critically Ill Patients Urinary Catheter Date of Insertion: 06/17/20 Urinary Catheter Time of Insertion: 03:50 Data : 06/24/20 02:30 06/24/20 02:30 Micro: Microbiology 06/17/20 12:20 Gram Stain - Final Peritoneal Fluid Anaerobic Culture - Final Bacteroides fragilis Body Fluid Culture - Final A&P Assessment and plan (1) Intra-abdominal abscess: Status: Acute (2) Colonic mass: Status: Acute (3) Postoperative ileus: Status: Acute (4) Constipation: Status: Acute (5) Acute kidney injury superimposed on chronic kidney disease: Status: Acute #Intra-abdominal abscess - S/p drain - decrease drainage - Follow up on culture, blood & fluid. - Anerobic culture positive: Bacteroids fragilis: - Fluid mycobacterial culture sent - pending - vancomycin ( 06-16-19) : Was discontinued, as the suspicion for MRSA is low (cultures have been negative), MRSA PCR: Could not be obtained. - Zosyn 3.375g IV q8hr -Metronidazole 500 mg IV every 8 hours was added on 06/20 till date for dual intra-abdominal anaerobic coverage. - General surgery on board. #Postop ileus: Resolved NG tube clamped, clear liquid diet. #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: ( 06/19/2020 ) - 5.1 x 4.6 x 6.8 cm apple core lesion in the left transverse colon - GS on board - CEA elevated - NG tube clamped, clear liquid diet. - Colonoscopy 06/18 - biopsy -> pathology showed adenocarcinoma #OMI on CKD 3 kidney disease (Resolved ) - Creatinine baseline 1.4 - Currently SCR is:0.9 - IVF was discontinued - Monitor BMP - Monitor u/o #Thoracic aortic aneurysm - increased in size to 8 - CTS consult noted - High risk for intervention - No current plan for surgery COPD - Stable Hypertension - Bp stable - Resume meds if hypertensive DVT ppx - SCDS due to invasive procedures - Nutrition : Has been started on TPN Additional A&P Information DVT ppx - SCDS due to invasive procedures - Nutrition : Has been started on TPN -CODE STATUS: Full code Attestations Medical Necessity Statement*: Status post left hemicolectomy for colon cancer requiring continued inpatient stay to ensure resolution of postop ileus. Coding Level of Care Code Acute Office Helper Clerical for [facility] Fwd Diagnoses Intra-abdominal abscess K65.1 Colonic mass K63.89 Postoperative ileus K91.89; K56.7 Constipation K59.00 Acute kidney injury superimposed on chronic kidney disease N17.9; N18.9
[2020-06-24 20:25] LABS: Glucose Point of Care 156 mg/dL (70-110)
[2020-06-25] VITALS (8 sets, daily range): BP systolic 108–155; BP diastolic 65–84; PULSE 96–111; RESP 17–19; TEMP 35.9–37.1; O2SAT 93–97
[2020-06-25] MEDS: heparin 5,000 unit/mL INJ 1 mL 5000 UNIT SUBCUT ×3 (00:51→17:14)
[2020-06-25 02:17] LABS: Basophils # 0.1 10^3/uL (0.0-0.1); Basophils % 0.7 %; Eosinophils # 0.2 10^3/uL (0.0-0.8); Hematocrit 32.1 % (37.0-47.0); Hemoglobin 9.7 g/dL (11.5-15.3); Lymphocytes # 1.3 10^3/uL (0.8-4.8); Mean Corpuscular HGB Conc 30.2 g/dL (30.0-36.0); Mean Corpuscular Hemoglobin 27.8 pg (28.0-34.0); Mean Platelet Volume 10.2 fL (7.4-10.4); Monocytes # 1.7 10^3/uL (0.2-0.9); Monocytes % 9.3 %; Nucleated Red Blood Cells # 0.1 /100WBC; Nucleated Red Blood Cells % 0.3 %; Platelet Count 303 10^3/cmm (130-400); Red Blood Count 3.49 10^6/uL (4.1-5.3); White Blood Count 18.4 10^3/uL (4.0-10.0)
[2020-06-25 02:36] LABS: Anion Gap 13.1 (5-19); Blood Urea Nitrogen 33 mg/dL (8-23); Calcium 8.4 mg/dL (8.5-10.5); Carbon Dioxide 25 mmol/L (22-29); Chloride 112 mmol/L (98-107); Creatinine Clr Calc Pharmacy 36.7332; Glucose 215 mg/dL (65-115); Osmolality Calculated 318 mOsm/kg (285-295); Potassium 3.1 mmol/L (3.5-5.1); Sodium 147 mmol/L (136-145)
[2020-06-25 02:58] LABS: Slide Review Slide Review Perform
[2020-06-25] MEDS: metroNIDAZOLE IV 500 MG/100 ML PREMIX 100 MG IV ×3 (04:48→19:58)
[2020-06-25] MEDS: famotidine 20 mg/2 mL INJ IVP ×2 (04:56→17:14)
[2020-06-25] MEDS: AA-Dex 5%-20% w/Lytes 1,000 ML with multivitamin inj 5 ML 83 ML IV (04:58)
[2020-06-25] MEDS: piperacillin-tazobactam 3.375 GM in sodium chloride 0.9% (plus) 50 ML IV (06:06)
[2020-06-25 06:41] LABS: Glucose Point of Care 232 mg/dL (70-110)
--- NOTE | 2020-06-25 06:59 | CT_ITS ---
WS: [id number] CT ABDOMEN AND PELVIS WITH CONTRAST HISTORY: s/p left hemicolectomy TECHNIQUE: Imaging performed of the abdomen and pelvis with IV contrast. Single phase imaging of the abdomen. Coronal and sagittal reformats are submitted. All CT scans at [facility] use at least one of these dose optimization techniques: automated exposure control; mA and/or kV adjustment per patient size (includes targeted exams where dose is matched to clinical indication); or iterativ e reconstruction. IV CONTRAST: Visipaque 320; 95 mL IV. Oral contrast: Yes. DLP: 308.4 mGy.cm COMPARISON: 06/17/2020 and 06/16/2020. Lower thorax: Small bilateral pleural effusions are new. Minimal atelectasis at the lung bases. Patie nt has a known large aneurysm involving the distal thoracic aorta. Transverse diameter measures 8.2 c m. The lumen is normally enhancing. There is no rupture or change. There is a nasogastric tube presen t with tip terminating in the stomach. No hiatal hernia. Liver/biliary system: Normal size with no intrahepatic dilatation. Gallbladder: Prior cholecystectomy. Pancreas: Atrophied pancreas. Spleen: Normal. Adrenal glands: RIGHT adrenal gland thickening measuring 11 x 15 mm is similar to 2007. LEFT adrenal gland is negative. Right kidney: Mild cortical atrophy with no obstruction. Lower pole cyst with a maximum diameter of 3 .7 cm. Left kidney: Mild atrophy with no obstruction. Several small cysts within the kidney. Aorta: Extensive atherosclerosis. Lymphadenopathy: None. Patient is status post LEFT hemicolectomy. Anastomotic sutures over the mid abdomen are identified. T here is increase fluid within the adjacent colon. There is mild wall thickening and edema. There is s oft tissue inflammatory changes within the mesentery and also surrounding the anastomosis. There are a few foci of free air also identified. There is a focal collection in the RIGHT lateral abdomen, rafaela tered at image 64 of series 2 measuring 5.3 x 3.2 cm. There is increased density within this collecti on. Postoperative hematoma. Cannot exclude developing abscess or postoperative fluid collection devel oping. Abdominal wall: Unremarkable abdominal wall. No hernia. Pelvis: There is free fluid bilaterally along the paracolic gutters and in the pelvis. No well formed collections. There is some very mild enhancement developing around the collection in the pelvis. At this time no abscess. Bones: 5 mm anterolisthesis of L4. CT/CT abdomen pelvis w con* [id number] IMPRESSION: 1. Small to moderate amount of free fluid along the paracolic gutters and in t he pelvis. At this time there is no abscess. Subtle enhancement around the saumya ection in the pelvis. 2. Moderate mesenteric edema and omental edema within the RIGHT upper abdomen and central abdomen. There are a few foci of free air. Free air may be the resi dual from the recent surgery. 3. Increase fluid near the anastomotic suture line but no significant high-gra de obstruction. 4. High density collection inferior to the anastomotic sutures measures 5.3 x 3.2 cm. Postoperative hematoma versus anastomotic leak. There is no air within this collection. This is not a liquefied collection.
--- NOTE | 2020-06-25 09:10 | PC.SOCIAL ---
IMM Updated Page 2 of IMM updated and given to patient. Initialed, dated, and timed and placed in chart.
--- NOTE | 2020-06-25 10:01 | XRR_ITS ---
PROCEDURE INFORMATION: Exam: XR Chest, 1 View Exam date and time: 06/25/2020 10:03 AM Age: 80 years old Clinical indication: Other: Abdominal pain; Patient HX: Abdomen pain, unable to obtain any history; Additional info: Leukocystosis TECHNIQUE: Imaging protocol: XR of the chest Views: 1 view. COMPARISON: CR XR chest 1V portable [id number] 06/22/2020 8:32 AM FINDINGS: Tubes, catheters and devices: Nasogastric tube overlies the body of the stomach Lungs: See Pleural space finding. Pleural space: Subpulmonic effusions bilaterally. Mild basilar atelectasis left greater than right. Tiny pneumothorax suspected within the right hemithorax inferiorly and laterally about the costophrenic angle. Correlate. Has there been a thoracentesis?. Heart/Mediastinum: Unremarkable. No cardiomegaly. Vasculature: Chest port via the left subclavian approach with the tip overlying the superior vena cava. Bones/joints: Unremarkable. XR/XR chest 1V portable [id number] IMPRESSION: 1. Subpulmonic effusions bilaterally. Mild basilar atelectasis left greater than right. 2. Tiny pneumothorax suspected within the right hemithorax inferiorly and laterally about the costophrenic angle. Correlate. Has there been a thoracentesis?. Follow-up recommended.
[2020-06-25] MEDS: iodixanol 320 mg/mL 100mL Btl IV (11:01)
[2020-06-25] MEDS: iohexol 300 mg/mL 50 mL Btl PO (11:02)
[2020-06-25] MEDS: lactulose oral liq 20 gm/30 mL UDC 10 GM PO (11:34)
[2020-06-25 11:36] LABS: Glucose Point of Care 109 mg/dL (70-110)
--- NOTE | 2020-06-25 14:23 | P.PN_ITS ---
Subjective Subjective: Interval history: Chastity reports she feels okay. Not nauseated currently. Discussed her case with surgery who is concerned regarding increasing white blood cell count. CT scan was ordered to delineate this. I reviewed her history and physical and progress notes. Medications: Reviewed: Yes Vitals/I&O/Wt Last Vital Signs Temp 96.7 F L 06/25/20 11:43 Pulse 101 H 06/25/20 11:43 Resp 18 06/25/20 11:43 BP 108/67 06/25/20 11:43 Pulse Ox 95 06/25/20 11:43 06/24/20 06/25/20 06/25/20 22:59 06:59 14:59 Intake Total 1185 / 1335 1185 / 2520 70 / 70 Output Total 1340 / 1580 1600 / 3180 100 / 100 Balance -155 / -245 -415 / -660 -30 / -30 Physical Exam Narrative: EXAM NARRATIVE: General exam demonstrates an elderly white female with NG in place Neck is supple no lymphadenopathy or thyromegaly Cardiovascular slight tachycardia, regular, no murmur Lungs clear no wheezing and crackles. Diminished breath sounds are noted bilaterally. Abdomen bowel sounds are heard. Nontender Extremities no cyanosis clubbing or edema Urinary Catheter Management^: Fernando: Cath Placed During This Visit: yes Reason for Continuing Indwelling Catheter: Accurate Measurement of Urinary Output in Critically Ill Patients Urinary Catheter Date of Insertion: 06/17/20 Urinary Catheter Time of Insertion: 03:50 Data : 06/25/20 02:10 06/25/20 02:10 Micro: Microbiology 06/17/20 12:20 Gram Stain - Final Peritoneal Fluid Anaerobic Culture - Final Bacteroides fragilis Body Fluid Culture - Final A&P Assessment and plan (1) Intra-abdominal abscess: Status: Acute (2) Colonic mass: Status: Acute (3) Postoperative ileus: Status: Acute (4) Constipation: Status: Acute (5) Acute kidney injury superimposed on chronic kidney disease: Status: Acute Intra-abdominal abscess Postoperative day #6 status post incision and drainage, and anastomosis with laparoscopic left hemicolectomy White blood cell count is increasing. Currently on Zosyn and Flagyl. Vancomyci n was discontinued on June 16. Check urinalysis. Blood culture. Central line is not functioning so we will discontinue central line, culture tip. Culture of fluid grew Bacteroides Restart vancomycin Discontinue Zosyn, initiate Primaxin Clear liquid diet has been started Postoperative ileus, slow improvement Adenocarcinoma of the colon with obstruction, status post left hemicolectomy, postoperative day #6. Will need outpatient oncology follow-up Acute kidney injury, resolved Large descending thoracic aortic aneurysm. To follow-up with vascular surgery as an outpatient COPD, currently stable Hypertension, controlled Additional A&P Information Heparin for DVT prophylaxis Attestations Medical Necessity Statement*: Needs continued hospitalization for close monitoring secondary to intra-abdominal abscess with increasing white blood cell count. Coding Level of Care Code Acute Cobbler Mckay for Chg Fwd Diagnoses Intra-abdominal abscess K65.1 Colonic mass K63.89 Postoperative ileus K91.89; K56.7 Constipation K59.00 Acute kidney injury superimposed on chronic kidney disease N17.9; N18.9
[2020-06-25] MEDS: vancomycin 750 MG in sodium chloride 0.9% 250 ML 250 MG IV (15:10)
[2020-06-25] MEDS: sodium chloride 0.9% 1,000 ML 75 ML IV (15:16)
--- NOTE | 2020-06-25 16:32 | PM.PN ---
Subjective Subjective: Interval history: Patient had 4 loose bowel movements yesterday, none today, no nausea or vomiting, NG tube has been clamped, patient is on a clear liquid diet. Her WBC is trending up, patient has been afebrile. Her central line was leaking and this was discontinued. Vitals/I&O/Wt Last Vital Signs Temp 97.7 F 06/25/20 16:00 Pulse 104 H 06/25/20 16:00 Resp 18 06/25/20 16:00 BP 135/65 06/25/20 16:00 Pulse Ox 93 06/25/20 16:00 06/25/20 06/25/20 06/25/20 06:59 14:59 22:59 Intake Total 1185 / 2520 170 / 170 Output Total 1600 / 3180 100 / 100 Balance -415 / -660 70 / 70 Physical Exam Narrative: EXAM NARRATIVE: Abdomen: Soft, distended, tender, incision clean dry and intact, NG tube is clamped Urinary Catheter Management^: Fernando: Cath Placed During This Visit: yes Reason for Continuing Indwelling Catheter: Accurate Measurement of Urinary Output in Critically Ill Patients Urinary Catheter Date of Insertion: 06/17/20 Urinary Catheter Time of Insertion: 03:50 Data : 06/25/20 02:10 06/25/20 02:10 Micro: Microbiology 06/17/20 12:20 Gram Stain - Final Peritoneal Fluid Anaerobic Culture - Final Bacteroides fragilis Body Fluid Culture - Final A&P Assessment and plan (1) S/P left hemicolectomy: (1) S/P left hemicolectomy: 80-year-old female status post left hemicolectomy doing well, awaiting return of bowel function. Clamp NG tube, clear liquid diet TPN at 83 cc/h Central line leaking, replace with PICC line Intra-abdominal abscess, WBC up to 18.4, afebrile: Continue IV Zosyn, Flagyl, add vancomycin Chest x-ray, CT abdomen pelvis with p.o. and IV contrast, UA, C. difficile to identify source of leukocytosis Hemoglobin: Stable , continue to monitor Creatinine: Stable at 1 To assess for possible rehab, consult case management IS Heparin for DVT prophylaxis Pepcid for GI prophylaxis Patient will need greater than 2 nights of inpatient stay lactulose 15 cc p.o. twice daily Status: Acute Attestations Medical Necessity Statement*: Status post left hemicolectomy with leukocytosis requiring continued inpatient stay Coding Level of Care Code Acute City Plant Supervisor for Chg Fwd Diagnoses S/P left hemicolectomy Z90.49
[2020-06-25 17:19] LABS: Glucose Point of Care 160 mg/dL (70-110)
[2020-06-25 20:20] LABS: Glucose Point of Care 117 mg/dL (70-110)
[2020-06-26] VITALS (8 sets, daily range): BP systolic 119–138; BP diastolic 73–87; PULSE 93–101; RESP 14–20; TEMP 36.3–36.7; O2SAT 93–96
[2020-06-26] MEDS: lactulose oral liq 20 gm/30 mL UDC 10 GM PO ×2 (00:35→11:35)
[2020-06-26] MEDS: heparin 5,000 unit/mL INJ 1 mL 5000 UNIT SUBCUT ×3 (00:35→17:50)
[2020-06-26] MEDS: metroNIDAZOLE IV 500 MG/100 ML PREMIX 100 MG IV ×3 (03:32→20:25)
[2020-06-26 05:43] LABS: Basophils # 0.1 10^3/uL (0.0-0.1); Basophils % 0.5 %; Eosinophils # 0.3 10^3/uL (0.0-0.8); Eosinophils % 1.4 %; Hematocrit 28.7 % (37.0-47.0); Hemoglobin 8.9 g/dL (11.5-15.3); Lymphocytes # 1.3 10^3/uL (0.8-4.8); Lymphocytes % 6.9 %; Mean Corpuscular Hemoglobin 28.2 pg (28.0-34.0); Mean Corpuscular Volume 90.8 fL (81-99); Mean Platelet Volume 10.7 fL (7.4-10.4); Monocytes # 1.2 10^3/uL (0.2-0.9); Monocytes % 6.3 %; Neutrophils # 14.71 10^3/uL (1.8-7.7); Neutrophils % 79.1 %; Nucleated Red Blood Cells % 0.2 %; Platelet Count 294 10^3/cmm (130-400); Red Blood Count 3.16 10^6/uL (4.1-5.3); Red Cell Distribution Width 15.2 % (12.1-15.1); White Blood Count 18.6 10^3/uL (4.0-10.0)
[2020-06-26] MEDS: famotidine 20 mg/2 mL INJ IVP (05:58)
[2020-06-26 06:45] LABS: Glucose Point of Care 102 mg/dL (70-110)
--- NOTE | 2020-06-26 06:45 | NUR.SHIFT ---
Patient mainly slept through the night, with no complaints of pain.
[2020-06-26 07:56] LABS: Slide Review Slide Review Perform
[2020-06-26] MEDS: sodium chloride 0.9% 1,000 ML 75 ML IV (09:10)
--- NOTE | 2020-06-26 11:25 | P.OP_ITS ---
Operative Report Date of procedure: June 26, 2020 Pre-op Diagnosis: Adenocarcinoma transverse colon Post-op Diagnosis: Adenocarcinoma transverse colon Intra-abdominal abscess adjacent to the colon mass involving the transverse mesocolon Procedure Done: Laparoscopic left hemicolectomy with extracorporeal stapled [id number] colocolic anastomosis Specimens removed/disposition: Left hemicolectomy specimen involving transverse colon, descending colon Surgeon: Eligio Fraser Anesthesia: General Estimated blood loss (mL): 50 IV fluids (mL): 1,400 Condition: stable Disposition: ICU Procedure: The patient was taken to the operating room and intubated under general anesthesia after IV antibiotic had been administered and patient was placed in the supine position. The abdomen was prepped and draped in a sterile manner. Using a 15 blade a midline supraumbilical incision was made and using open Bartlett technique the peritoneal cavity was entered and a 10 mm port was p laced and 15 mm of pneumoperitoneum was created. A 10 mm 30 degrees scope was introduced. 3 separate 5 mm ports were placed in the right lower quadrant and left lower quadrant in the midclavicular line and on the right side at the level of the umbilicus in the midclavicular line. The patient was placed in steep Trendelenburg position and rotated towards the right side thus moving the small bowel to his right paracolic gutter. Small bowel loops were noted to be adherent to the transverse mesocolon where abscess had been drained previously under CT guidance. The small bowel loops were gently freed away until the transverse colon could be retracted superiorly. The ligament of Treitz was identified and an opening made in the retroperitoneum adjacent the inferior mesenteric vein. A plane posterior to the IMV was identified and dissection was carried bluntly through the avascular plane up to the left paracolic gutter thus mobilizing the descending colon from medial to lateral aspect. About 2 inches superiorly and lateral to the ligament of Treitz an opening was made in the transverse mesocolon using LigaSure to enter the lesser sac. The transverse mesocolon was divided from the body and the tail of the pancreas up to the splenic flexure using LigaSure. The line of Toldt was opened on the left side starting from the sigmoid colon all the way up to the splenic flexure thus mo bilizing the descending colon completely. Inferior mesenteric vein was identified and the mesocolon of the descending colon was retracted superiorly revealing the left colic artery coming off QUIRINO which was also divided with LigaSure. The anterior leaflet of the greater omentum was divided starting in the mid transverse colon and extending up to the splenic flexure, splenocolic and phrenocolic ligaments were divided resulting in complete mobilization of the distal half of the transverse colon and descending colon. At this point the greater omentum was divided from the proximal transverse colon and the transverse colon was mobilized and hepatocolic ligaments were taken down. The peritoneum overlying the sigmoid colon was divided in order to mobilize it proximally towards the hepatic flexure. At this point it was noted that there is adequate length of sigmoid colon to perform a tension-free anastomosis. The umbilical incision was extended and the wound protector was placed and the mobilized colon was exteriorized. The site of the planned anastomosis was cleared of appendiceal epiploica and interrupted 4-0 Vicryl sutures were placed to approximate the proximal transverse colon to the sigmoid colon. Using electrocautery, colotomies were created on the transverse colon and sigmoid colon adjacent to each other and a 75 mm blue load CORNELL stapler was fired to create a [id number] enteroenterostomy. The newly created colotomies were grasped with Allis clamps and 2 loads of 75mm blue load CORNELL stapler was fired just distal to the colotomies resulting in creation of [id number] anastomosis as well as resection of the left colon. 4-0 Vicryl Lembert sutures were placed at the junction of the staple lines. 3-0 Vicryl suture was placed in the proximal end of the divided segment. The omentum was laid over the anastomosis and the GelPort was placed to re-create the pneumoperitoneum. 20 cc of saline mixed with 20 cc of 0.5 % Marcaine mixed with 20 cc of Exparel was injected in the midclavicular line under laparoscopic visualization for TAP block. The wound protector was removed and the fascia in the midline was closed using #1 looped PDS. Subcutaneous tissues were approximated using interrupted 3-0 Vicryl suture and skin at all 4 sites were closed using 4-0 Monocryl and skin glue. The patient was extubated and transferred to recovery room in stable condition with a Fernando catheter.
[2020-06-26] MEDS: potassium chloride ER 20 mEq Tablet PO (11:37)
[2020-06-26 11:48] LABS: Glucose Point of Care 111 mg/dL (70-110)
--- NOTE | 2020-06-26 12:54 | P.PN_ITS ---
Subjective Subjective: Interval history: Chastity reports she feels okay. Was a little nauseous this morning. Did not throw up. Is not sure if she is having bowel movements, but there are certainly recorded by nursing. No abdominal discomfort. Medications: Reviewed: Yes Vitals/I&O/Wt Last Vital Signs Temp 97.7 F 06/26/20 11:27 Pulse 95 06/26/20 11:27 Resp 14 06/26/20 11:27 BP 138/82 06/26/20 11:27 Pulse Ox 94 06/26/20 11:27 06/25/20 06/26/20 06/26/20 22:59 06:59 14:59 Intake Total 1555 / 1725 1200 / 2925 160 / 160 Output Total 400 / 500 1100 / 1600 Balance 1155 / 1225 100 / 1325 160 / 160 Physical Exam Narrative: EXAM NARRATIVE: General exam demonstrates an elderly white female with NG in place Neck is supple no lymphadenopathy or thyromegaly Cardiovascular slight tachycardia, regular, no murmur Lungs clear no wheezing and crackles. Diminished breath sounds are noted bilaterally. Abdomen bowel sounds are heard. Nontender Extremities no cyanosis clubbing or edema Urinary Catheter Management^: Fernando: Cath Placed During This Visit: yes Reason for Continuing Indwelling Catheter: Accurate Measurement of Urinary Output in Critically Ill Patients Urinary Catheter Date of Insertion: 06/17/20 Urinary Catheter Time of Insertion: 03:50 Data : 06/26/20 04:54 06/25/20 02:10 Micro: Microbiology 06/25/20 16:59 Blood Culture - Preliminary Blood SPECIMEN COLLECTED 06/25/20 16:55 Blood Culture - Preliminary Blood SPECIMEN COLLECTED A&P Assessment and plan (1) Intra-abdominal abscess: Status: Acute (2) Colonic mass: Status: Acute (3) Postoperative ileus: Status: Acute (4) Constipation: Status: Acute (5) Acute kidney injury superimposed on chronic kidney disease: Status: Acute Intra-abdominal abscess Postoperative day #7 status post incision and drainage, and anastomosis with laparoscopic left hemicolectomy. Clinically appears to be improving. White blood cell count is increased but perhaps stabilized. Antibiotic coverage expanded yesterday to Primaxin, vancomycin . Urinalysis is pending. Blood culture negative to date. Central line was discontinued as it was not functioning. Culture of fluid grew Bacteroides Clear liquid diet has been started Cdiff pending Postoperative ileus, improving t Adenocarcinoma of the colon with obstruction, status post left hemicolectomy, postoperative day #7. Will need outpatient oncology follow-up Acute kidney injury, resolved Large descending thoracic aortic aneurysm. To follow-up with vascular surgery as an outpatient COPD, currently stable Hypertension, controlled Additional A&P Information Heparin for DVT prophylaxis Check laboratory tomorrow Attestations Medical Necessity Statement*: Needs continued hospitalization for IV antibiotics secondary to intra-abdominal abscess with increased white blood cell count. Coding Level of Care Code Acute Director Of Midwifery/Staff Midwife for Chg Fwd Diagnoses Intra-abdominal abscess K65.1 Colonic mass K63.89 Postoperative ileus K91.89; K56.7 Constipation K59.00 Acute kidney injury superimposed on chronic kidney disease N17.9; N18.9
--- NOTE | 2020-06-26 13:48 | PM.PN ---
Subjective Subjective: Interval history: PICC line could not be placed today, had multiple loose bowel movements, no nausea or vomiting, NG tube was removed Vitals/I&O/Wt Last Vital Signs Temp 97.7 F 06/26/20 11:27 Pulse 95 06/26/20 11:27 Resp 14 06/26/20 11:27 BP 138/82 06/26/20 11:27 Pulse Ox 94 06/26/20 11:27 06/25/20 06/26/20 06/26/20 22:59 06:59 14:59 Intake Total 1555 / 2925 1200 / 2925 160 / 160 Output Total 400 / 1600 1100 / 1600 Balance 1155 / 1325 100 / 1325 160 / 160 Physical Exam Narrative: EXAM NARRATIVE: Abdomen course: Soft, less distended, minimally tender, incision clean dry and intact Urinary Catheter Management^: Fernando: Cath Placed During This Visit: yes Reason for Continuing Indwelling Catheter: Accurate Measurement of Urinary Output in Critically Ill Patients Urinary Catheter Date of Insertion: 06/17/20 Urinary Catheter Time of Insertion: 03:50 Data : 06/26/20 04:54 06/25/20 02:10 Micro: Microbiology 06/25/20 16:59 Blood Culture - Preliminary Blood SPECIMEN COLLECTED 06/25/20 16:55 Blood Culture - Preliminary Blood SPECIMEN COLLECTED A&P Assessment and plan (1) S/P left hemicolectomy: Status: Acute Status post left hemicolectomy with postop ileus, appears to be improving Ileus: DC NG tube, advance to full liquid diet, tolerating clear liquid diet Leukocytosis: Patient has been afebrile and hemodynamically stable, continue Flagyl, imipenem and vancomycin CT abdomen pelvis did not reveal any drainable collections, chest x-ray: No acute UA and C. difficile pending Ambulate with physical therapy Nutrition: PICC line could not be displaced, DC TPN, add Ensure 1 can 3 times a day Keep IV fluids at 75 cc/h Protonix 40 mg p.o. daily Heparin for DVT prophylaxis Additional A&P Information Heparin for DVT prophylaxis Check laboratory tomorrow Attestations Medical Necessity Statement*: Postop ileus and leukocytosis requiring continued IV antibiotics and inpatient stay Coding Level of Care Code Acute Project Management Intern for Chg Fwd Diagnoses S/P left hemicolectomy Z90.49
[2020-06-26 15:09] LABS: Add Urine Microscopic? YES; Bilirubin Urine Neg (Negative); Blood Urine Neg (Negative); Glucose Urine UA Norm (Normal); Ketones Urine 1+ (Negative); Leukocyte Esterase Urine Trace (Negative); Nitrate Urine Negative (Negative); Protein Urine Neg (Negative); Specific Gravity, Urine 1.015 (1.005-1.030); Urine Appearance Hazy (CLEAR); Urine Color Yellow (Yellow); Urobilinogen Urine Norm (Negative); pH Urine 5 (5-7)
[2020-06-26 15:23] LABS: RBC Urine 0-4 /hpf (0-2); Squamous Epithelial Cell Urine 0-4 /hpf (0-5); WBC Urine 0-4 /hpf (0-5)
[2020-06-26 15:24] LABS: Add Urine Culture? No; Amorphous Sediment Urine TRACE /hpf; Bacteria Urine TRACE /hpf
[2020-06-26] MEDS: vancomycin 750 MG in sodium chloride 0.9% 250 ML 250 MG IV (15:33)
[2020-06-26 17:01] LABS: Glucose Point of Care 166 mg/dL (70-110)
[2020-06-26 20:57] LABS: Glucose Point of Care 139 mg/dL (70-110)
[2020-06-27] VITALS (7 sets, daily range): BP systolic 121–171; BP diastolic 70–89; PULSE 84–105; RESP 16–18; TEMP 36.4–36.8; O2SAT 94–96
[2020-06-27] MEDS: sodium chloride 0.9% 1,000 ML 75 ML IV (00:58)
[2020-06-27] MEDS: heparin 5,000 unit/mL INJ 1 mL 5000 UNIT SUBCUT ×2 (00:58→08:09)
[2020-06-27] MEDS: metroNIDAZOLE IV 500 MG/100 ML PREMIX 100 MG IV ×3 (05:07→21:43)
[2020-06-27 06:32] LABS: Glucose Point of Care 105 mg/dL (70-110)
[2020-06-27] MEDS: pantoprazole DR 40 mg Tablet PO (08:09)
[2020-06-27 10:06] LABS: Basophils # 0.1 10^3/uL (0.0-0.1); Basophils % 0.6 %; Eosinophils # 0.5 10^3/uL (0.0-0.8); Eosinophils % 2.3 %; Hematocrit 30.6 % (37.0-47.0); Hemoglobin 9.6 g/dL (11.5-15.3); Lymphocytes # 1.5 10^3/uL (0.8-4.8); Lymphocytes % 7.6 %; Mean Corpuscular HGB Conc 31.4 g/dL (30.0-36.0); Mean Corpuscular Hemoglobin 28.7 pg (28.0-34.0); Mean Corpuscular Volume 91.3 fL (81-99); Mean Platelet Volume 11.7 fL (7.4-10.4); Monocytes # 1.2 10^3/uL (0.2-0.9); Monocytes % 5.9 %; Neutrophils # 15.49 10^3/uL (1.8-7.7); Neutrophils % 78.3 %; Nucleated Red Blood Cells % 0.2 %; Platelet Count 343 10^3/cmm (130-400); Red Blood Count 3.35 10^6/uL (4.1-5.3); Red Cell Distribution Width 16.2 % (12.1-15.1); White Blood Count 19.8 10^3/uL (4.0-10.0)
[2020-06-27 10:29] LABS: Alanine Aminotransferase 9 U/L (0-33); Albumin Level 2.7 g/dL (3.5-5.2); Alkaline Phosphatase 90 IU/L (35-105); Blood Urea Nitrogen 23 mg/dL (8-23); Calcium 8.1 mg/dL (8.5-10.5); Carbon Dioxide 18 mmol/L (22-29); Chloride 116 mmol/L (98-107); Creatinine Clr Calc Pharmacy 40.8146; Globulin 2.3 g/dL (1.3-4.6); Glucose 88 mg/dL (65-115); Magnesium 1.9 mg/dL (1.7-2.3); Osmolality Calculated 315 mOsm/kg (285-295); Sodium 151 mmol/L (136-145); Total Bilirubin 0.2 mg/dL (0.15-1.2)
[2020-06-27 10:52] LABS: Aspartate Amino Transferase 19 U/L (0-32)
--- NOTE | 2020-06-27 11:05 | PC.SOCIAL ---
IMM Updated Updated pt on Pg 2 IMM. No questions voiced. Provided pt a copy. Signed, dated, & timed copy in chart.
--- NOTE | 2020-06-27 11:18 | PM.PN ---
Subjective Subjective: Interval history: Chastity reports she feels okay today. No nausea. No abdominal discomfort. Medications: Reviewed: Yes Vitals/I&O/Wt Last Vital Signs Temp 97.5 F L 06/27/20 08:00 Pulse 100 06/27/20 08:00 Resp 16 06/27/20 08:00 BP 171/89 06/27/20 08:00 Pulse Ox 94 06/27/20 08:00 06/26/20 06/27/20 06/27/20 22:59 06:59 14:59 Intake Total 1900 / 2160 100 / 2260 240 / 240 Output Total 550 / 550 Balance 1900 / 2160 -450 / 1710 240 / 240 Physical Exam Narrative: EXAM NARRATIVE: General exam demonstrates an elderly white female in no distress. NG has been removed. Neck is supple no lymphadenopathy or thyromegaly Cardiovascular slight tachycardia, regular, no murmur Lungs clear no wheezing and crackles. Diminished breath sounds are noted bilaterally. Abdomen bowel sounds are heard. Nontender Extremities no cyanosis clubbing or edema Urinary Catheter Management^: Fernando: Cath Placed During This Visit: yes, but has since been removed by the nurse Reason for Continuing Indwelling Catheter: Accurate Measurement of Urinary Output in Critically Ill Patients Urinary Catheter Date of Insertion: 06/17/20 Urinary Catheter Time of Insertion: 03:50 Date Urinary Catheter Removed: 06/22/20 Time Urinary Catheter Discontinued: 14:00 Data : 06/26/20 04:54 06/27/20 04:51 Micro: Microbiology 06/25/20 16:59 Blood Culture - Preliminary Blood NEGATIVE TO DATE 06/25/20 16:55 Blood Culture - Preliminary Blood NEGATIVE TO DATE A&P Assessment and plan (1) Intra-abdominal abscess: Status: Resolved (2) Colonic mass: Status: Resolved (3) Postoperative ileus: Status: Acute (4) Constipation: Status: Resolved (5) Acute kidney injury superimposed on chronic kidney disease: Status: Resolved Intra-abdominal abscess Postoperative day #8 status post incision and drainage, and anastomosis with laparoscopic left hemicolectomy. Clinically appears to be improving. White blood cell count is increased but perhaps stabilized. Count today is pending. Antibiotic coverage expanded yesterday to Primaxin, vancomycin . Urinalysis was negative. Blood culture negative to date. Central line was discontinued as it was not functioning. Culture of fluid grew Bacteroides Full liquid diet has been started Cdiff pending Hyponatremia. Discontinue saline. Change to D5 half-normal saline at 75 cc an hour. Recheck tomorrow. Postoperative ileus, improving t Adenocarcinoma of the colon with obstruction, status post left hemicolectomy, postoperative day #7. Will need outpatient oncology follow-up Acute kidney injury, resolved Large descending thoracic aortic aneurysm. To follow-up with vascular surgery as an outpatient COPD, currently stable Hypertension, controlled Additional A&P Information Heparin for DVT prophylaxis Attestations Medical Necessity Statement*: Needs continued hospitalization for IV antibiotics secondary to intra-abdominal abscess Coding Level of Care Code Acute Operations Administrative Assistant for Chg Fwd Diagnoses Intra-abdominal abscess K65.1 Colonic mass K63.89 Postoperative ileus K91.89; K56.7 Constipation K59.00 Acute kidney injury superimposed on chronic kidney disease N17.9; N18.9
[2020-06-27 11:23] LABS: Glucose Point of Care 141 mg/dL (70-110)
[2020-06-27 11:46] LABS: Slide Review Slide Review Perform
--- NOTE | 2020-06-27 14:31 | PM.PN ---
Subjective Subjective: Interval history: Patient clinically looks a lot better, tolerating full liquid diet, no nausea vomiting after NG tube was discontinued yesterday, had multiple bowel movements, afebrile Vitals/I&O/Wt Last Vital Signs Temp 97.8 F 06/27/20 12:00 Pulse 105 H 06/27/20 12:00 Resp 17 06/27/20 12:00 BP 144/88 06/27/20 12:00 Pulse Ox 96 06/27/20 12:00 06/26/20 06/27/20 06/27/20 22:59 06:59 14:59 Intake Total 1900 / 2360 200 / 2360 600 / 600 Output Total 550 / 550 Balance 1900 / 1810 -350 / 1810 600 / 600 Physical Exam Narrative: EXAM NARRATIVE: Abdomen: Soft, nondistended, minimally tender, incision clean dry and intact Urinary Catheter Management^: Fernando: Cath Placed During This Visit: yes, but has since been removed by the nurse Reason for Continuing Indwelling Catheter: Accurate Measurement of Urinary Output in Critically Ill Patients Urinary Catheter Date of Insertion: 06/17/20 Urinary Catheter Time of Insertion: 03:50 Date Urinary Catheter Removed: 06/22/20 Time Urinary Catheter Discontinued: 14:00 Data : 06/27/20 04:51 06/27/20 04:51 Micro: Microbiology 06/25/20 16:59 Blood Culture - Preliminary Blood NEGATIVE TO DATE 06/25/20 16:55 Blood Culture - Preliminary Blood NEGATIVE TO DATE A&P Assessment and plan (1) S/P left hemicolectomy: Status: Acute (1) S/P left hemicolectomy: Status post left hemicolectomy with postop ileus, appears to be improving Ileus: Continue full liquid diet Leukocytosis: Patient has been afebrile and hemodynamically stable, continue Flagyl, imipenem and vancomycin, WBC increased to 19.8, repeat CBC tomorrow if continues to be elevated plan for repeat CT abdomen pelvis CT abdomen pelvis did not reveal any drainable collections, chest x-ray: No acute UA: Negative Blood cultures: No growth C. difficile: Pending Ambulate with physical therapy Nutrition: Ensure 1 can 3 times a day Keep IV fluids at 75 cc/h, change to D5 half-normal saline due to hypernatremia Protonix 40 mg p.o. daily Creatinine down to 0.9, DC heparin and start Lovenox for DVT prophylaxis Attestations Medical Necessity Statement*: Status post left hemicolectomy with ileus which appears to be resolving and leukocytosis requiring continued inpatient stay Coding Level of Care Code Acute Planting Material Unloader for Chg Fwd Diagnoses S/P left hemicolectomy Z90.49
[2020-06-27] MEDS: dextrose 5%-sod chloride 0.45% 1,000 ML 75 ML IV (14:57)
[2020-06-27] MEDS: vancomycin 750 MG in sodium chloride 0.9% 250 ML 250 MG IV (15:51)
[2020-06-27] MEDS: enoxaparin 40 mg/0.4 mL Syringe SUBCUT (15:52)
[2020-06-28] VITALS (10 sets, daily range): BP systolic 124–169; BP diastolic 69–91; PULSE 73–110; RESP 15–22; TEMP 36.4–37.1; O2SAT 93–97
[2020-06-28] MEDS: metroNIDAZOLE IV 500 MG/100 ML PREMIX 100 MG IV ×3 (03:44→21:07)
[2020-06-28 04:09] LABS: Basophils # 0.1 10^3/uL (0.0-0.1); Basophils % 0.5 %; Eosinophils # 0.4 10^3/uL (0.0-0.8); Eosinophils % 2.1 %; Hematocrit 31.2 % (37.0-47.0); Hemoglobin 9.3 g/dL (11.5-15.3); Lymphocytes # 1.1 10^3/uL (0.8-4.8); Lymphocytes % 6.5 %; Mean Corpuscular HGB Conc 29.8 g/dL (30.0-36.0); Mean Corpuscular Hemoglobin 27.9 pg (28.0-34.0); Mean Corpuscular Volume 93.7 fL (81-99); Mean Platelet Volume 10.9 fL (7.4-10.4); Monocytes % 5.6 %; Neutrophils # 13.72 10^3/uL (1.8-7.7); Neutrophils % 81.3 %; Nucleated Red Blood Cells % 0.1 %; Platelet Count 339 10^3/cmm (130-400); Red Blood Count 3.33 10^6/uL (4.1-5.3); Red Cell Distribution Width 16.7 % (12.1-15.1); White Blood Count 16.9 10^3/uL (4.0-10.0)
[2020-06-28 04:33] LABS: Alanine Aminotransferase 6 U/L (0-33); Alkaline Phosphatase 76 IU/L (35-105); Aspartate Amino Transferase 13 U/L (0-32); Blood Urea Nitrogen 17 mg/dL (8-23); Calcium 7.9 mg/dL (8.5-10.5); Carbon Dioxide 22 mmol/L (22-29); Chloride 116 mmol/L (98-107); Creatinine Clr Calc Pharmacy 40.8146; Glucose 102 mg/dL (65-115); Osmolality Calculated 306 mOsm/kg (285-295); Sodium 147 mmol/L (136-145); Total Bilirubin 0.2 mg/dL (0.15-1.2)
--- NOTE | 2020-06-28 08:46 | PM.PN ---
Subjective Subjective: Interval history: Overall patient doing well denies any significant abdominal pain, no nausea or vomiting, passing flatus Vitals/I&O/Wt Last Vital Signs Temp 98.0 F 06/28/20 07:36 Pulse 98 06/28/20 08:26 Resp 17 06/28/20 08:26 BP 169/80 06/28/20 07:36 Pulse Ox 95 06/28/20 08:26 06/27/20 06/28/20 06/28/20 22:59 06:59 14:59 Intake Total 540 / 1340 Output Total 301 / 701 400 / 701 Balance 239 / 639 -400 / 639 Physical Exam Narrative: EXAM NARRATIVE: Abdomen: Soft, nondistended, minimally tender, incision clean dry and intact Urinary Catheter Management^: Fernando: Cath Placed During This Visit: yes, but has since been removed by the nurse Reason for Continuing Indwelling Catheter: Accurate Measurement of Urinary Output in Critically Ill Patients Urinary Catheter Date of Insertion: 06/17/20 Urinary Catheter Time of Insertion: 03:50 Date Urinary Catheter Removed: 06/22/20 Time Urinary Catheter Discontinued: 14:00 Data : 06/28/20 03:15 06/28/20 03:15 A&P Assessment and plan (1) S/P left hemicolectomy: Status: Acute (1) S/P left hemicolectomy: Status post left hemicolectomy with postop ileus, appears to be improving Ileus: Continue full liquid diet Leukocytosis: Patient is on imipenem, vancomycin and Flagyl, afebrile, WBC down to 16.[address] abdomen pelvis did not reveal any drainable collections, chest x-ray: No acute UA: Negative Blood cultures: No growth C. difficile: Pending Ambulate with physical therapy Nutrition: Ensure 1 can 3 times a day Hypokalemia: Replace with 80 mEq KCl Hyponatremia: Improved on D5 half-normal saline Protonix 40 mg p.o. daily Lovenox for DVT prophylaxis Attestations Medical Necessity Statement*: Status post left hemicolectomy requiring continued inpatient stay to ensure resolution of ileus and leukocytosis Coding Level of Care Code Acute Infantry Senior Sergeant for Chg Fwd Diagnoses S/P left hemicolectomy Z90.49
[2020-06-28] MEDS: pantoprazole DR 40 mg Tablet PO (08:48)
[2020-06-28] MEDS: amlodipine 10 mg Tablet PO (11:12)
[2020-06-28] MEDS: potassium chloride ER 20 mEq Tablet 80 MEQ PO (11:12)
[2020-06-28] MEDS: metoprolol succinate ER (24 HR) 50 mg Tablet 150 MG PO (11:12)
[2020-06-28] MEDS: lactulose oral liq 20 gm/30 mL UDC 10 GM PO (11:13)
[2020-06-28] MEDS: D5-NS 0.45% + KCL 20 mEq 20 MEQ/1,000 ML BAG 75 MEQ IV (11:13)
--- NOTE | 2020-06-28 12:09 | P.PN_ITS ---
Subjective Subjective: Interval history: She reports she is doing all right. She has been passing little bit of gas. No significant abdominal pain. Does feel like she has a bra strap or band around her chest. Has not been coughing. Does not appear this to be getting worse with deep breaths. Vitals/I&O/Wt Last Vital Signs Temp 98.0 F 06/28/20 07:36 Pulse 98 06/28/20 08:26 Resp 17 06/28/20 08:26 BP 169/80 06/28/20 07:36 Pulse Ox 95 06/28/20 08:26 06/27/20 06/28/20 06/28/20 22:59 06:59 14:59 Intake Total 540 / 1340 200 / 1540 240 / 240 Output Total 301 / 301 400 / 701 Balance 239 / 1039 -200 / 839 240 / 240 Physical Exam Const: COMMON NORMALS: no acute distress and patient oriented x3 HENMT: COMMON NORMALS: oropharynx normal Neck/C-Spine: COMMON NORMALS: no JVD Resp: COMMON NORMALS: normal respiratory effort and clear to auscultation bilaterally AUSCULTATION: clear to auscultation bilaterally Cardio: COMMON NORMALS: no JVD, regular rhythm, S1 normal heart sound present, S2 normal heart sound present and No murmurs present (Cardio) RHYTHM: regular rhythm HEART SOUNDS: S1 normal heart sound present and S2 normal heart sound present GI: COMMON NORMALS: Normal to inspection, nondistended, normoactive bowel sounds present, Soft to palpation and non-tender PALPATION: Yes Soft to palpation Extremity: COMMON NORMALS: no joint enlargement and no pedal edema Neuro: COMMON NORMALS: patient oriented x3 and moves all extremities Skin: COMMON NORMALS: no rashes or lesions noted GENERAL SKIN EXAM: no rashes or lesions noted Urinary Catheter Management^: Fernando: Cath Placed During This Visit: yes, but has since been removed by the nurse Reason for Continuing Indwelling Catheter: Accurate Measurement of Urinary Output in Critically Ill Patients Urinary Catheter Date of Insertion: 06/17/20 Urinary Catheter Time of Insertion: 03:50 Date Urinary Catheter Removed: 06/22/20 Time Urinary Catheter Discontinued: 14:00 Data : 06/28/20 03:15 06/28/20 03:15 A&P Assessment and plan (1) Intra-abdominal abscess: Status: Acute (2) Colonic mass: Status: Resolved (3) Postoperative ileus: Status: Acute (4) Constipation: Status: Resolved (5) Acute kidney injury superimposed on chronic kidney disease: Status: Resolved Intra-abdominal abscess Continue antibiotics per discussion with surgery. WBC count today is little bit better. Subjectively she is feeling all right, and says that she has even been passing a bit of gas. Primaxin, is also on Flagyl. Vancomycin. Postoperative day #8 status post incision and drainage, and anastomosis with laparoscopic left hemicolectomy. Culture of fluid grew Bacteroides Blood culture negative to date. Central line was discontinued as it was not functioning. Full liquid diet Cdiff pending Hypernatremia. Improving. Decrease D5 half-normal saline rate. Recheck tomorrow. 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 Colonic origin is favored. No other origins cannot be totally excluded. Will need outpatient oncology follow-up. Acute kidney injury, resolved Large descending thoracic aortic aneurysm. To follow-up with vascular surgery as an outpatient COPD, currently stable Hypertension, controlled Chest tightness: Reports a band around her chest today. Will check EKG and troponin series. Denies any respiratory issues. Recheck chest x-ray given pleural effusions and has been receiving IV fluids. Also reported tiny pneumothorax? On chest x-ray 06/25. Decrease IVF rate. Additional A&P Information Heparin for DVT prophylaxis Attestations Medical Necessity Statement*: Continue admission for cyst management following evacuation of intra-abdominal abscess, hemicolectomy, with anaerobic infection, poorly differentiated colon cancer. Coding Level of Care Code Acute Artist And Repertoire Manager for [facility] Diagnoses Intra-abdominal abscess K65.1 Colonic mass K63.89 Postoperative ileus K91.89; K56.7 Constipation K59.00 Acute kidney injury superimposed on chronic kidney disease N17.9; N18.9
--- NOTE | 2020-06-28 12:23 | XR_ITS ---
WS: [id number] PORTABLE CHEST HISTORY: chest tightness, pleural effusions, possible PTX COMPARISON: 06/25/2020 Endotracheal tube is been removed. Minimal atelectasis at the lung bases. There are small bilateral pleural effusions. No pneumonia. No pneumothorax. Cardiac size: Normal. Mediastinum/Aorta: Mild atherosclerosis aorta. 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 No osseous abnormality seen. XR/XR chest 1V portable [id number] IMPRESSION: 1. Small bilateral pleural effusions and minimal bibasilar atelectasis. 2. No pneumonia. 3. No pneumothorax.
--- NOTE | 2020-06-28 14:09 | ECG_ITS ---
[facility] Test Date: 2020-06-28 Pat Name: Chastity Cramer Department: Room: 253 Gender: Female Anatomy Professor: : 1940 Requested By: Deepak Field Order Number: [id number] Sharona MD: Marsha Wilkins M.D. Measurements Intervals [place] Rate: 77 P: 95 MD: 219 QRS: 60 QRSD: 82 T: 77 QT: 394 QTc: 447 Interpretive Statements SINUS RHYTHM WITH FIRST DEGREE AV BLOCK No previous ECG available for comparison Electronically Signed On 07-01-2020 10:08:15 FOSTER CARE WORKER by Marsha Wilkins M.D. [id number]
[2020-06-28 14:58] LABS: Vancomycin Trough 9.4 ug/mL (10-15)
[2020-06-28 15:21] LABS: Troponin(5th) Baseline 27 ng/L (0-10)
[2020-06-28] MEDS: vancomycin 1,000 MG in sodium chloride 0.9% 250 ML 250 MG IV (16:58)
[2020-06-28] MEDS: enoxaparin 40 mg/0.4 mL Syringe SUBCUT (16:59)
--- NOTE | 2020-06-28 18:09 | ECG_ITS ---
[facility] Test Date: 2020-06-28 Pat Name: Chastity Cramer Department: Room: 253 Gender: Female Drop Board Worker: : 1940 Requested By: Deepak Field Order Number: [id number] Sharona MD: Marsha Wilkins M.D. Measurements Intervals [place] Rate: 68 P: 78 AR: 210 QRS: 55 QRSD: 82 T: 78 QT: 431 QTc: 461 Interpretive Statements SINUS RHYTHM WITH FIRST DEGREE AV BLOCK Compared to ECG 06/28/2020 14:35:03 No significant changes Electronically Signed On 07-01-2020 10:02:37 DIRECTOR OF CHANNEL MARKETING by Marsha Wilkins M.D. [id number]
[2020-06-28 22:46] LABS: Troponin(5th) Baseline 23 ng/L (0-10)
[2020-06-29] VITALS (8 sets, daily range): BP systolic 131–155; BP diastolic 72–76; PULSE 65–90; RESP 16–24; TEMP 36.3–36.7; O2SAT 93–97
[2020-06-29 01:19] LABS: Troponin 5 2HR 24.18 ng/L (0-10); Troponin 5 2HR Delta 1.18 ABS# (0-10)
[2020-06-29] MEDS: D5-NS 0.45% + KCL 20 mEq 20 MEQ/1,000 ML BAG 75 MEQ IV ×2 (02:18→17:15)
[2020-06-29 03:18] LABS: Basophils # 0.1 10^3/uL (0.0-0.1); Basophils % 0.3 %; Eosinophils # 0.4 10^3/uL (0.0-0.8); Eosinophils % 2.3 %; Hematocrit 29.6 % (37.0-47.0); Hemoglobin 8.9 g/dL (11.5-15.3); Lymphocytes % 6.1 %; Mean Corpuscular HGB Conc 30.1 g/dL (30.0-36.0); Mean Corpuscular Volume 93.1 fL (81-99); Mean Platelet Volume 10.9 fL (7.4-10.4); Monocytes # 0.8 10^3/uL (0.2-0.9); Monocytes % 5.2 %; Neutrophils # 13.36 10^3/uL (1.8-7.7); Neutrophils % 84.3 %; Nucleated Red Blood Cells % 0 %; Platelet Count 297 10^3/cmm (130-400); Red Blood Count 3.18 10^6/uL (4.1-5.3); White Blood Count 15.9 10^3/uL (4.0-10.0)
[2020-06-29 03:40] LABS: Blood Urea Nitrogen 14 mg/dL (8-23); Calcium 7.5 mg/dL (8.5-10.5); Carbon Dioxide 25 mmol/L (22-29); Chloride 117 mmol/L (98-107); Creatinine Clr Calc Pharmacy 45.9164; Glucose 149 mg/dL (65-115); Osmolality Calculated 303 mOsm/kg (285-295); Sodium 145 mmol/L (136-145)
[2020-06-29 03:43] LABS: Troponin 5 6HR 24.95 ng/L (0-10); Troponin 5 6HR Delta 1.95 ng/L (0-12)
[2020-06-29] MEDS: metroNIDAZOLE IV 500 MG/100 ML PREMIX 100 MG IV ×3 (05:36→20:11)
[2020-06-29] MEDS: pantoprazole DR 40 mg Tablet PO (10:25)
[2020-06-29] MEDS: metoprolol succinate ER (24 HR) 50 mg Tablet 150 MG PO (10:25)
[2020-06-29] MEDS: amlodipine 10 mg Tablet PO (10:25)
[2020-06-29] MEDS: potassium chloride ER 20 mEq Tablet 80 MEQ PO (10:27)
--- NOTE | 2020-06-29 10:50 | DCPLANNER ---
IMM completed 06/29/2020 @ 0935. Copy of rights given to pt.
--- NOTE | 2020-06-29 12:52 | P.PN_ITS ---
Subjective Subjective: Interval history: Denies any nausea or vomiting, tolerating full liquid diet, had bowel movements, denies any abdominal distention Vitals/I&O/Wt Last Vital Signs Temp 97.4 F L 06/29/20 12:00 Pulse 70 06/29/20 12:00 Resp 18 06/29/20 12:00 BP 155/72 06/29/20 12:00 Pulse Ox 96 06/29/20 12:00 06/28/20 06/29/20 06/29/20 22:59 06:59 14:59 Intake Total 420 / 2280 1300 / 2280 360 / 360 Output Total 600 / 600 Balance 420 / 1680 700 / 1680 360 / 360 Physical Exam Narrative: EXAM NARRATIVE: Abdomen: Soft, minimally tender, nondistended, incision clean dry intact Urinary Catheter Management^: Fernando: Cath Placed During This Visit: yes, but has since been removed by the nurse Reason for Continuing Indwelling Catheter: Accurate Measurement of Urinary Output in Critically Ill Patients Urinary Catheter Date of Insertion: 06/17/20 Urinary Catheter Time of Insertion: 03:50 Date Urinary Catheter Removed: 06/22/20 Time Urinary Catheter Discontinued: 14:00 Data : 06/29/20 03:00 06/29/20 03:00 A&P Assessment and plan (1) S/P left hemicolectomy: Status: Acute (1) S/P left hemicolectomy: Status post left hemicolectomy with postop ileus, appears to be improving Ileus: Continue full liquid diet since she has mild distention Leukocytosis: Patient is on imipenem, vancomycin and Flagyl, afebrile, WBC down to 15.[address] abdomen pelvis did not reveal any drainable collections, chest x-ray: No acute UA: Negative Blood cultures: No growth C. difficile: Pending Anemia: Hemoglobin at 8.9 Ambulate with physical therapy Nutrition: Ensure 1 can 3 times a day Hypokalemia: Resolved Hyponatremia: Improved on D5 half-normal saline Protonix 40 mg p.o. daily Lovenox for DVT prophylaxis Patient's ileus appears to be resolving and hopefully the leukocytosis will continue to trend down Attestations Medical Necessity Statement*: Status post left hemicolectomy with drainage of intra-abdominal abscess requiring continued IV antibiotics to ensure resolution of leukocytosis Coding Level of Care Code Acute Staff Respiratory Therapist for [facility] Diagnoses S/P left hemicolectomy Z90.49
[2020-06-29] MEDS: enoxaparin 40 mg/0.4 mL Syringe SUBCUT (17:16)
[2020-06-29] MEDS: vancomycin 1,000 MG in sodium chloride 0.9% 250 ML 250 MG IV (17:16)
--- NOTE | 2020-06-29 19:00 | PM.PN ---
Subjective Subjective: Interval history: She feels her breathing is not in the best. Denies chest pain. Has been having a bit of cough, some small amount of phlegm. Abdomen feels little bit bloated. No vomiting. Denies eructation. She walked with physical therapy but today, and feels quite weak and deconditioned. States I need to work with therapy more . Vitals/I&O/Wt Last Vital Signs Temp 97.4 F L 06/29/20 16:00 Pulse 73 06/29/20 16:00 Resp 18 06/29/20 16:00 BP 131/72 06/29/20 16:00 Pulse Ox 95 06/29/20 16:00 06/29/20 06/29/20 06/29/20 06:59 14:59 22:59 Intake Total 1400 / 2630 460 / 460 1000 / 1460 Output Total 600 / 600 Balance 800 / 2030 460 / 460 1000 / 1460 Physical Exam Const: COMMON NORMALS: no acute distress and patient oriented x3 HENMT: COMMON NORMALS: oropharynx normal Neck/C-Spine: COMMON NORMALS: no JVD Resp: COMMON NORMALS: normal respiratory effort and clear to auscultation bilaterally AUSCULTATION: clear to auscultation bilaterally Cardio: COMMON NORMALS: no JVD, regular rhythm, S1 normal heart sound present, S2 normal heart sound present and No murmurs present (Cardio) RHYTHM: regular rhythm HEART SOUNDS: S1 normal heart sound present and S2 normal heart sound present GI: COMMON NORMALS: Soft to palpation and non-tender INSPECTION: Yes abdominal distension (mild) PALPATION: Yes Soft to palpation Extremity: COMMON NORMALS: no joint enlargement and no pedal edema Neuro: COMMON NORMALS: patient oriented x3 and moves all extremities Skin: COMMON NORMALS: no rashes or lesions noted GENERAL SKIN EXAM: no rashes or lesions noted Urinary Catheter Management^: Fernando: Cath Placed During This Visit: yes, but has since been removed by the nurse Reason for Continuing Indwelling Catheter: Accurate Measurement of Urinary Output in Critically Ill Patients Urinary Catheter Date of Insertion: 06/17/20 Urinary Catheter Time of Insertion: 03:50 Date Urinary Catheter Removed: 06/22/20 Time Urinary Catheter Discontinued: 14:00 Data : 06/29/20 03:00 06/29/20 03:00 A&P Assessment and plan (1) Intra-abdominal abscess: Status: Acute (2) Colonic mass: Status: Resolved (3) Postoperative ileus: Status: Acute (4) Constipation: Status: Resolved (5) Acute kidney injury superimposed on chronic kidney disease: Status: Resolved (6) Pleural effusion: Status: Acute Intra-abdominal abscess Will discontinue IV fluids. She appears to be gradually improving. Leukocytosis a bit better today. Continue IV antibiotics. Primaxin, is also on Flagyl. Vancomycin. Status post incision and drainage, and anastomosis with laparoscopic left hemicolectomy. Culture of fluid grew Bacteroides Blood culture negative to date. Central line was discontinued as it was not functioning. Full liquid diet Cdiff appears was canceled by surgery. Chest tightness: Reported on 06/28. Troponin with mild elevation up to 24, stable. No chest discomfort today. Breathing feels not optimal. Does have small pleural effusions. Has been receiving some IV fluids. Will discontinue. Repeat chest x-ray in the morning. Pleural effusions were previously small. If enlarged, may explain her symptoms. Hypernatremia. Improved. DC IV fluid. Oral nutrition hydration as tolerating. 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 Colonic origin is favored. No other origins cannot be totally excluded. Will need outpatient oncology follow-up. Acute kidney injury, resolved Large descending thoracic aortic aneurysm. To follow-up with vascular surgery as an outpatient COPD, currently stable Hypertension, controlled Physical deconditioning. She feels quite deconditioned. Is wanting to work more with therapy. Pending placement also for rehabilitation at SNF. Additional A&P Information Heparin for DVT prophylaxis Attestations Medical Necessity Statement*: Continue admission for assessment management of postoperative ileus, after drainage of intra-abdominal abscess, slow to improve sepsis, in the setting of poorly differentiated carcinoma with suspected chronic primary origin. Coding Level of Care Code Acute Supervisor Frame Sample And Pattern for [facility] Diagnoses Intra-abdominal abscess K65.1 Colonic mass K63.89 Postoperative ileus K91.89; K56.7 Constipation K59.00 Acute kidney injury superimposed on chronic kidney disease N17.9; N18.9 Pleural effusion J90
[2020-06-30] VITALS (8 sets, daily range): BP systolic 109–139; BP diastolic 66–91; PULSE 65–77; RESP 16–21; TEMP 36.4–36.8; O2SAT 92–95
[2020-06-30] MEDS: metroNIDAZOLE IV 500 MG/100 ML PREMIX 100 MG IV ×3 (05:16→22:03)
[2020-06-30 05:36] LABS: Basophils # 0.1 10^3/uL (0.0-0.1); Basophils % 0.6 %; Eosinophils # 0.4 10^3/uL (0.0-0.8); Eosinophils % 2.7 %; Hematocrit 34.4 % (37.0-47.0); Hemoglobin 10.1 g/dL (11.5-15.3); Lymphocytes % 5.8 %; Mean Corpuscular HGB Conc 29.4 g/dL (30.0-36.0); Mean Corpuscular Hemoglobin 28.5 pg (28.0-34.0); Mean Corpuscular Volume 96.9 fL (81-99); Mean Platelet Volume 11.5 fL (7.4-10.4); Monocytes # 0.7 10^3/uL (0.2-0.9); Monocytes % 4.4 %; Neutrophils # 13.95 10^3/uL (1.8-7.7); Neutrophils % 84.9 %; Nucleated Red Blood Cells % 0 %; Platelet Count 299 10^3/cmm (130-400); Red Blood Count 3.55 10^6/uL (4.1-5.3); Red Cell Distribution Width 17.3 % (12.1-15.1); White Blood Count 16.4 10^3/uL (4.0-10.0)
--- NOTE | 2020-06-30 06:00 | XRR_ITS ---
PROCEDURE INFORMATION: Exam: XR Chest, 1 View Exam date and time: 06/30/2020 8:48 AM Age: 80 years old Clinical indication: Shortness of breath; Patient HX: Short of breath. Hypoxia TECHNIQUE: Imaging protocol: XR of the chest Views: 1 view. COMPARISON: CR XR chest 1V portable [id number] 06/28/2020 12:33 PM FINDINGS: Lungs: Atelectasis of lower lungs. Pleural space: Bilateral pleural effusions. Heart/Mediastinum: Stable heart size. Vasculature: Curvilinear partially calcific opacity at the right cardiophrenic angle consistent with documented vascular aneurysm. Calcified thoracic aorta. Bones/joints: Unremarkable. Other findings: No overt edema. XR/XR chest 1V portable [id number] IMPRESSION: 1. Bilateral lower lung atelectasis and bilateral pleural effusions are similar. 2. Vascular calcified dilatation at the right cardiophrenic angle.
[2020-06-30 06:12] LABS: Anion Gap 13.8 (5-19); Blood Urea Nitrogen 12 mg/dL (8-23); Calcium 8.1 mg/dL (8.5-10.5); Carbon Dioxide 22 mmol/L (22-29); Chloride 112 mmol/L (98-107); Creatinine Clr Calc Pharmacy 45.9164; Glucose 84 mg/dL (65-115); Osmolality Calculated 297 mOsm/kg (285-295); Potassium 3.8 mmol/L (3.5-5.1); Sodium 144 mmol/L (136-145)
[2020-06-30] MEDS: metoprolol succinate ER (24 HR) 50 mg Tablet 150 MG PO (10:00)
[2020-06-30] MEDS: amlodipine 10 mg Tablet PO (10:02)
[2020-06-30] MEDS: potassium chloride ER 20 mEq Tablet 80 MEQ PO (10:02)
[2020-06-30] MEDS: pantoprazole DR 40 mg Tablet PO (10:02)
--- NOTE | 2020-06-30 11:44 | PM.PN ---
Subjective Subjective: Interval history: She denies abdominal pain. Had a loose bowel movement today. Denies chest pain or pressure. Feels her breathing is not a whole lot better, chest feels somewhat restricted at deep breaths. Vitals/I&O/Wt Last Vital Signs Temp 98.0 F 06/30/20 08:00 Pulse 65 06/30/20 10:25 Resp 16 06/30/20 10:25 BP 112/66 06/30/20 08:00 Pulse Ox 92 06/30/20 10:25 06/29/20 06/30/20 06/30/20 22:59 06:59 14:59 Intake Total 1457.5 / 2017.5 100 / 2117.5 Output Total 600 / 600 450 / 1050 Balance 857.5 / 1417.5 -350 / 1067.5 -1 Physical Exam Const: COMMON NORMALS: no acute distress and patient oriented x3 HENMT: COMMON NORMALS: oropharynx normal Neck/C-Spine: COMMON NORMALS: no JVD Resp: COMMON NORMALS: normal respiratory effort and clear to auscultation bilaterally AUSCULTATION: clear to auscultation bilaterally Cardio: COMMON NORMALS: no JVD, regular rhythm, S1 normal heart sound present, S2 normal heart sound present and No murmurs present (Cardio) RHYTHM: regular rhythm HEART SOUNDS: S1 normal heart sound present and S2 normal heart sound present GI: COMMON NORMALS: Soft to palpation and non-tender AUSCULTATION: Yes normoactive bowel sounds PALPATION: Yes Soft to palpation Extremity: COMMON NORMALS: no joint enlargement and no pedal edema Neuro: COMMON NORMALS: patient oriented x3 and moves all extremities Skin: COMMON NORMALS: no rashes or lesions noted GENERAL SKIN EXAM: no rashes or lesions noted Urinary Catheter Management^: Fernando: Cath Placed During This Visit: yes, but has since been removed by the nurse Reason for Continuing Indwelling Catheter: Accurate Measurement of Urinary Output in Critically Ill Patients Urinary Catheter Date of Insertion: 06/17/20 Urinary Catheter Time of Insertion: 03:50 Date Urinary Catheter Removed: 06/22/20 Time Urinary Catheter Discontinued: 14:00 Data : 06/30/20 04:18 06/30/20 04:18 Micro: Microbiology 06/29/20 13:18 Sputum Culture - Preliminary Sputum - Expectorated Sputum Yeast A&P Assessment and plan (1) Intra-abdominal abscess: Status: Acute (2) Colonic mass: Status: Resolved (3) Postoperative ileus: Status: Acute (4) Constipation: Status: Resolved (5) Acute kidney injury superimposed on chronic kidney disease: Status: Resolved (6) Pleural effusion: Status: Acute Intra-abdominal abscess She appears to be doing all right. She had a loose bowel movement today. Denies abdominal pain. Leukocytosis did come up somewhat to 16.4 today. No tachycardia. Afebrile. Does not fit sepsis criteria. She tells me she is still on clear liquids inquiring whether may be changed something more substantial. Will inquire with surgery. Reorder C. difficile. Continue IV antibiotics. We will also confirm with surgery whether may benefit from additional evaluation by CT abdomen and pelvis versus continue monitoring given persistent leukocytosis. Status post incision and drainage, and anastomosis with laparoscopic left hemicolectomy. Culture of fluid grew Bacteroides Blood culture negative to date. Central line was discontinued as it was not functioning. Full liquid diet Chest tightness: Reported on 06/28. Troponin with mild elevation up to 24, stable. No chest discomfort today. Breathing feels not optimal. On repeat chest x-ray appears to have some small pleural effusions. IV fluid has been discontinued. For now we will monitor. Encourage incentive parameter. Hypernatremia. Resolved. Stopped IV fluid. Oral nutrition hydration as tolerating. 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 Colonic origin is favored. No other origins cannot be totally excluded. Will need outpatient oncology follow-up. Acute kidney injury, resolved Large descending thoracic aortic aneurysm. To follow-up with vascular surgery as an outpatient COPD, currently stable Hypertension, controlled Physical deconditioning. She feels quite deconditioned. Is wanting to work more with therapy. Pending placement also for rehabilitation at SNF. Additional A&P Information Heparin for DVT prophylaxis Attestations Medical Necessity Statement*: Continue admission for IV antibiotic therapy following intra-abdominal abscess, with persistent leukocytosis, bowel resection and anastomosis, also with underlying poorly differentiated carcinoma suspected colonic in origin. Coding Level of Care Code Acute Tool Design Engineer for [facility] Diagnoses Intra-abdominal abscess K65.1 Colonic mass K63.89 Postoperative ileus K91.89; K56.7 Constipation K59.00 Acute kidney injury superimposed on chronic kidney disease N17.9; N18.9 Pleural effusion J90
--- NOTE | 2020-06-30 13:51 | PM.PN ---
Subjective Subjective: Interval history: Patient denies any abdominal pain, nausea or vomiting, tolerating full liquid diet, having bowel movements Medications: Reviewed: Yes Vitals/I&O/Wt Last Vital Signs Temp 98.3 F 06/30/20 12:00 Pulse 67 06/30/20 12:00 Resp 17 06/30/20 12:00 BP 114/67 06/30/20 12:00 Pulse Ox 94 06/30/20 12:00 06/29/20 06/30/20 06/30/20 22:59 06:59 14:59 Intake Total 1457.5 / 2217.5 200 / 2217.5 Output Total 600 / 1050 450 / 1050 Balance 857.5 / 1167.5 -250 / 1167.5 -1 Physical Exam Narrative: EXAM NARRATIVE: Abdomen: Soft, minimally tender, minimally distended, incision clean dry and intact Urinary Catheter Management^: Fernando: Cath Placed During This Visit: yes, but has since been removed by the nurse Reason for Continuing Indwelling Catheter: Accurate Measurement of Urinary Output in Critically Ill Patients Urinary Catheter Date of Insertion: 06/17/20 Urinary Catheter Time of Insertion: 03:50 Date Urinary Catheter Removed: 06/22/20 Time Urinary Catheter Discontinued: 14:00 Data : 06/30/20 04:18 06/30/20 04:18 Micro: Microbiology 06/29/20 13:18 Sputum Culture - Preliminary Sputum - Expectorated Sputum Yeast A&P Assessment and plan (1) S/P left hemicolectomy: Status: Acute (1) S/P left hemicolectomy: Status post left hemicolectomy with postop ileus, appears to be improving Ileus: Continue full liquid diet since she has mild distention Leukocytosis: Patient is on imipenem, vancomycin and Flagyl, afebrile, WBC hovering at 16.4 CT abdomen pelvis on 06/25/2020 did not reveal any drainable collections, chest x-ray: No acute UA: Negative Blood cultures: No growth C. difficile: Pending Anemia: Hemoglobin at 10.1 Ambulate with physical therapy Nutrition: Ensure 1 can 3 times a day Hypokalemia: Resolved Hyponatremia: Resolved Protonix 40 mg p.o. daily Lovenox for DVT prophylaxis Patient's ileus has been resolving but leukocytosis is persisting and therefore will obtain a CT abdomen pelvis with p.o. and IV contrast Attestations Medical Necessity Statement*: Persisting leukocytosis after left hemicolectomy and drainage of intra-abdominal abscess Coding Level of Care Code Acute Stave Log Ripsaw Operator for [facility] Diagnoses S/P left hemicolectomy Z90.49
[2020-06-30] MEDS: vancomycin 1,000 MG in sodium chloride 0.9% 250 ML 250 MG IV (16:00)
[2020-06-30] MEDS: enoxaparin 40 mg/0.4 mL Syringe SUBCUT (16:00)
--- NOTE | 2020-06-30 16:35 | CTR_ITS ---
PROCEDURE INFORMATION: Exam: CT Abdomen And Pelvis With Contrast Exam date and time: 06/30/2020 5:05 PM Age: 80 years old Clinical indication: Abdominal pain; Generalized; Prior surgery; Surgery date: 3-7 days post-operative; Surgery type: Hemicolectomy, gb, hyst; Patient HX: F/u post op ileus and abcess S/P hemicolectomy; Additional info: Follow up after intra-abd abscess, hemicolectomy, leukocytosis TECHNIQUE: Imaging protocol: Computed tomography of the abdomen and pelvis with intravenous contrast. Radiation optimization: All CT scans at this facility use at least one of these dose optimization techniques: automated exposure control; mA and/or kV adjustment per patient size (includes targeted exams where dose is matched to clinical indication); or iterative reconstruction. Contrast material: OMNI 300; Contrast volume: 95 ml; Contrast route: INTRAVENOUS (IV); Other contrast: Oral, dilute omni 300 20 ml, 450ml; COMPARISON: CT abdomen pelvis w con* [id number] 06/25/2020 10:43 AM RADIATION DOSE METRICS: Total DLP (mGy-cm): 467.19 FINDINGS: Pleural space: There are bilateral pleural effusions with underlying compressive atelectasis or infiltrate. Liver: Normal. No mass. Gallbladder and bile ducts: The gallbladder has been removed. Pancreas: Normal. No ductal dilation. Spleen: Normal. No splenomegaly. Adrenal glands: Right adrenal gland thickening is unchanged from the prior study. Normal left adrenal gland. Kidneys and ureters: Bilateral renal cysts with benign features the larger of which measures 4.1 cm at the lower pole the right kidney. Follow-up is not necessary. Stomach and bowel: There are air-fluid levels in the distal colon suggesting mild nonspecific colitis versus other diarrheal illness. There is diverticulosis of the colon without evidence of diverticulitis. Partial colectomy changes. There is a diverticulum off the transverse segment of the duodenum. Appendix: No evidence of appendicitis. Intraperitoneal space: There is a moderate amount of free fluid in the abdomen and pelvis with some internal complexity raising concern for infection versus hemorrhagic products. The amount of fluid has increased in the abdomen when compared to the prior study. There is peripheral enhancement of the pelvic fluid collection which measures 9.3 x 6.8 cm in the transverse/AP dimensions, similar to the prior study. Vasculature: Multivessel atherosclerotic disease which involves the coronary arteries. Aneurysm of the distal thoracic aorta measures 8.1 x 6.7 cm in the transverse/AP dimensions, unchanged from the prior study. No evidence for current rupture. Infrarenal abdominal aorta is ectatic. Lymph nodes: Unremarkable. No enlarged lymph nodes. Urinary bladder: Unremarkable as visualized. Reproductive: Unremarkable as visualized. Bones/joints: Unremarkable. No acute fracture. Soft tissues: There is edema and foci of emphysema in the subcutaneous soft tissues surrounding the abdomen and pelvis. Postoperative changes are present in the ventral abdominal wall. There is a right paracentral upper abdominal hernia containing fat and fluid, similar to the prior study. CT/CT abdomen pelvis w con* [id number] IMPRESSION: 1. There is a moderate amount of with some internal complexity in the abdomen and pelvis. The amount of fluid in the abdomen has increased when compared to the prior CT scan. The pelvic fluid collection remains stable and shows mild peripheral enhancement. Internal complexity within these fluid collections may represent infection and/or hemorrhagic products. 2. Bilateral pleural effusions with adjacent compressive atelectasis or infiltrate. 3. Stable appearance of the distal thoracic aortic aneurysm. No evidence for current rupture. COMMENTS: Consistent with the [employer]'s Incidental Findings Committee white paper (J Am Jaqueline Radiol 2018): Any incidental renal lesion less than 1 cm or classified as too small to characterize, or any incidental cystic renal lesion characterized as simple-appearing, is likely benign. No follow-up imaging is recommended for these lesions per consensus recommendations based on imaging criteria. Radiation Dose CTDIVOL = (mGy): DLP = 467.19 (mGy-cm)
[2020-06-30] MEDS: iohexol 300 mg/mL 50 mL Btl PO (17:06)
[2020-06-30] MEDS: iohexol 300 mg/mL 100 mL Btl IV (19:28)
[2020-07-01] VITALS (7 sets, daily range): BP systolic 117–131; BP diastolic 63–78; PULSE 69–85; RESP 16–24; TEMP 36.4–36.8; O2SAT 92–96
[2020-07-01] MEDS: metroNIDAZOLE IV 500 MG/100 ML PREMIX 100 MG IV ×2 (05:00→15:12)
[2020-07-01 05:13] LABS: Basophils # 0.1 10^3/uL (0.0-0.1); Basophils % 0.4 %; Eosinophils # 0.2 10^3/uL (0.0-0.8); Eosinophils % 1.5 %; Hematocrit 31.9 % (37.0-47.0); Hemoglobin 9.8 g/dL (11.5-15.3); Lymphocytes # 0.8 10^3/uL (0.8-4.8); Lymphocytes % 5.1 %; Mean Corpuscular HGB Conc 30.7 g/dL (30.0-36.0); Mean Corpuscular Hemoglobin 28.3 pg (28.0-34.0); Mean Corpuscular Volume 92.2 fL (81-99); Mean Platelet Volume 11.7 fL (7.4-10.4); Monocytes # 0.7 10^3/uL (0.2-0.9); Monocytes % 4.5 %; Neutrophils % 87.4 %; Nucleated Red Blood Cells % 0 %; Platelet Count 310 10^3/cmm (130-400); Red Blood Count 3.46 10^6/uL (4.1-5.3); Red Cell Distribution Width 17.7 % (12.1-15.1); White Blood Count 15.2 10^3/uL (4.0-10.0)
[2020-07-01 05:35] LABS: Anion Gap 11.9 (5-19); Blood Urea Nitrogen 12 mg/dL (8-23); Carbon Dioxide 24 mmol/L (22-29); Chloride 113 mmol/L (98-107); Creatinine Clr Calc Pharmacy 40.8146; Glucose 99 mg/dL (65-115); Osmolality Calculated 300 mOsm/kg (285-295); Potassium 3.9 mmol/L (3.5-5.1); Sodium 145 mmol/L (136-145)
--- NOTE | 2020-07-01 11:13 | P.PN_ITS ---
Subjective Subjective: Interval history: Patient had bowel movement, no nausea or vomiting, denies any abdominal pain feels a bit bloated. CT abdomen pelvis yesterday showed increase in intraperitoneal fluid collection Vitals/I&O/Wt Last Vital Signs Temp 97.6 F 07/01/20 07:53 Pulse 72 07/01/20 07:53 Resp 16 07/01/20 07:53 BP 120/63 07/01/20 07:53 Pulse Ox 93 07/01/20 07:53 06/30/20 07/01/20 07/01/20 22:59 06:59 14:59 Intake Total 260 / 760 200 / 760 Output Total 200 / 201 Balance 60 / 559 200 / 559 Physical Exam Narrative: EXAM NARRATIVE: Abdomen: Soft, mildly distended, nontender, incision clean dry intact Urinary Catheter Management^: Fernando: Cath Placed During This Visit: yes, but has since been removed by the nurse Reason for Continuing Indwelling Catheter: Accurate Measurement of Urinary Output in Critically Ill Patients Urinary Catheter Date of Insertion: 06/17/20 Urinary Catheter Time of Insertion: 03:50 Date Urinary Catheter Removed: 06/22/20 Time Urinary Catheter Discontinued: 14:00 Data : 07/01/20 04:50 07/01/20 04:50 Micro: Microbiology 06/25/20 16:59 Blood Culture - Final Blood NO GROWTH AFTER 5 DAYS 06/25/20 16:55 Blood Culture - Final Blood NO GROWTH AFTER 5 DAYS 06/29/20 13:18 Sputum Culture - Preliminary Sputum - Expectorated Sputum Yeast A&P Assessment and plan (1) S/P left hemicolectomy: Status: Acute (1) S/P left hemicolectomy: Status post left hemicolectomy with postop ileus, appears to be improving Ileus: We will keep her on clear liquid diet, n.p.o. after midnight Leukocytosis: Patient is on imipenem, vancomycin and Flagyl, afebrile, WBC down to 15.2, recheck labs tomorrow CT abdomen pelvis on 06/29/2020 did not reveal any drainable collections, chest x-ray: No acute UA: Negative Peritoneal fluid: Bacteroids Blood cultures: No growth C. difficile: Pending Anemia: Hemoglobin at 9.8 Ambulate with physical therapy Nutrition: Ensure 1 can 3 times a day Hypokalemia: Resolved Hyponatremia: Resolved Protonix 40 mg p.o. daily Lovenox for DVT prophylaxis Patient's ileus has been resolving but leukocytosis is persisting, if WBC does not trend down, plan for possible CT-guided drainage of fluid collection tomorrow Attestations Medical Necessity Statement*: Leukocytosis status post left hemicolectomy requiring continued inpatient stay Coding Level of Care Code Acute Medical Records Supervisor for [facility] Fwd Diagnoses S/P left hemicolectomy Z90.49
--- NOTE | 2020-07-01 11:25 | PC.SOCIAL ---
IMM Updated Page 2 of IMM updated and given to patient. Initialed, dated, and timed and placed back in chart.
[2020-07-01] MEDS: enoxaparin 40 mg/0.4 mL Syringe SUBCUT (15:12)
--- NOTE | 2020-07-01 17:07 | PM.PN ---
Subjective Subjective: Interval history: Leukocytosis persisting at 15, patient offers no new complaints except that she feels cold, remains afebrile hemodynamically stable, appreciate surgical evaluation, based on leukocytosis and clinical progression any need IR guided fluid Medications: Reviewed: Yes Vitals/I&O/Wt Last Vital Signs Temp 97.7 F 07/01/20 15:55 Pulse 82 07/01/20 15:55 Resp 16 07/01/20 15:55 BP 122/78 07/01/20 15:55 Pulse Ox 94 07/01/20 15:55 07/01/20 07/01/20 07/01/20 06:59 14:59 22:59 Intake Total 300 / 860 100 / 100 Balance 300 / 659 100 / 100 Physical Exam Narrative: EXAM NARRATIVE: GEN: Awake, alert and oriented, no acute distress CVS: S1S2 N RS: CTA B/L Abd: Soft, nt/nd , bs+ CELL BUILDER: no focal neuro deficits Urinary Catheter Management^: Fernando: Cath Placed During This Visit: yes, but has since been removed by the nurse Reason for Continuing Indwelling Catheter: Accurate Measurement of Urinary Output in Critically Ill Patients Urinary Catheter Date of Insertion: 06/17/20 Urinary Catheter Time of Insertion: 03:50 Date Urinary Catheter Removed: 06/22/20 Time Urinary Catheter Discontinued: 14:00 Data : 07/01/20 04:50 07/01/20 04:50 Micro: Microbiology 06/25/20 16:59 Blood Culture - Final Blood NO GROWTH AFTER 5 DAYS 06/25/20 16:55 Blood Culture - Final Blood NO GROWTH AFTER 5 DAYS A&P Assessment and plan (1) Intra-abdominal abscess: Status: Acute (2) Colonic mass: Status: Resolved (3) Postoperative ileus: Status: Acute (4) Constipation: Status: Resolved (5) Acute kidney injury superimposed on chronic kidney disease: Status: Resolved (6) Pleural effusion: Status: Acute Intra-abdominal abscess Denies any new complaints today, leukocytosis at 15.2. Continue IV antibiotics. If persisting leukocytosis may need IR guided drainage Status post incision and drainage, and anastomosis with laparoscopic left hemicolectomy. Culture of fluid grew Bacteroides Blood culture negative to date. Central line was discontinued as it was not functioning. Full liquid diet, n.p.o. post midnight Discontinue Flagyl as currently appropriately covered with gram-negative coverage with imipenem. Chest tightness: Reported on 06/28. Troponin with mild elevation up to 24, stable. No chest discomfort today. Breathing feels not optimal. On repeat chest x-ray appears to have some small pleural effusions. IV fluid has been discontinued. For now we will monitor. Encourage incentive parameter. Hypernatremia. Resolved. Stopped IV fluid. Oral nutrition hydration as tolerating. 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 Colonic origin is favored. No other origins cannot be totally excluded. Will need outpatient oncology follow-up. Acute kidney injury, resolved Large descending thoracic aortic aneurysm. To follow-up with vascular surgery as an outpatient COPD, currently stable Hypertension, controlled Physical deconditioning. She feels quite deconditioned. Is wanting to work more with therapy. Pending placement also for rehabilitation at SNF. Additional A&P Information Heparin for DVT prophylaxis Attestations Medical Necessity Statement*: Trend leukocytosis and clinical recovery, may need aspiration of intra-abdominal abscess. Coding Level of Care Code Acute Digital Account Supervisor for [facility] Fwd Diagnoses Intra-abdominal abscess K65.1 Colonic mass K63.89 Postoperative ileus K91.89; K56.7 Constipation K59.00 Acute kidney injury superimposed on chronic kidney disease N17.9; N18.9 Pleural effusion J90
[2020-07-01] MEDS: vancomycin 1,000 MG in sodium chloride 0.9% 250 ML 250 MG IV (17:35)
--- NOTE | 2020-07-01 22:56 | PC.NURSE ---
AMB TO BATHROOM Ambulated to bathroom. c/o being weak and SOB with ambulation. Had to sit down 3 times to and from bathroom to catch her breath and rest. Placed on O2 while up and says it did help. Reports she does this sometimes at home and has to just rest. Sat 92-94% on return to bed and took several minutes to recover
[2020-07-02] VITALS (7 sets, daily range): BP systolic 119–148; BP diastolic 73–80; PULSE 69–102; RESP 16–24; TEMP 36.4–37.3; O2SAT 92–96
[2020-07-02 05:25] LABS: Basophils # 0.1 10^3/uL (0.0-0.1); Basophils % 0.5 %; Eosinophils # 0.2 10^3/uL (0.0-0.8); Eosinophils % 1.4 %; Hematocrit 31.3 % (37.0-47.0); Hemoglobin 9.5 g/dL (11.5-15.3); Lymphocytes # 0.8 10^3/uL (0.8-4.8); Lymphocytes % 6.6 %; Mean Corpuscular HGB Conc 30.4 g/dL (30.0-36.0); Mean Corpuscular Hemoglobin 27.9 pg (28.0-34.0); Mean Corpuscular Volume 92.1 fL (81-99); Mean Platelet Volume 11.9 fL (7.4-10.4); Monocytes # 0.7 10^3/uL (0.2-0.9); Monocytes % 5.7 %; Neutrophils # 10.64 10^3/uL (1.8-7.7); Neutrophils % 85.1 %; Nucleated Red Blood Cells % 0 %; Platelet Count 330 10^3/cmm (130-400); White Blood Count 12.5 10^3/uL (4.0-10.0)
[2020-07-02 05:42] LABS: Alanine Aminotransferase 6 U/L (0-33); Albumin Level 2.2 g/dL (3.5-5.2); Alkaline Phosphatase 65 IU/L (35-105); Anion Gap 12.4 (5-19); Aspartate Amino Transferase 17 U/L (0-32); Blood Urea Nitrogen 12 mg/dL (8-23); Calcium 8.3 mg/dL (8.5-10.5); Carbon Dioxide 23 mmol/L (22-29); Chloride 111 mmol/L (98-107); Creatinine Clr Calc Pharmacy 45.9164; Globulin 3.1 g/dL (1.3-4.6); Glucose 97 mg/dL (65-115); Lipase 267 U/L (13-60); Osmolality Calculated 296 mOsm/kg (285-295); Potassium 3.4 mmol/L (3.5-5.1); Sodium 143 mmol/L (136-145); Total Bilirubin 0.3 mg/dL (0.15-1.2); Total Protein 5.3 g/dL (6.6-8.7)
--- NOTE | 2020-07-02 06:06 | PC.NURSE ---
SHIFT SUMMARY Has rested well. Midline surgical incision is clean & dry with samuel intact. Has X3 stab incisions to medial lower abd, RUQ and LUQ. All 3 with one staple each. NPO after midnight for possible procedure today. Has denied any need for pain meds. Receiving IV antibiotics. Missed hat for first void tonight so unable to record accurate output
[2020-07-02] MEDS: pantoprazole DR 40 mg Tablet PO (09:05)
[2020-07-02] MEDS: metoprolol succinate ER (24 HR) 50 mg Tablet 150 MG PO (09:05)
[2020-07-02] MEDS: amlodipine 10 mg Tablet PO (09:05)
[2020-07-02] MEDS: potassium chloride ER 20 mEq Tablet 80 MEQ PO (09:06)
[2020-07-02] MEDS: enoxaparin 40 mg/0.4 mL Syringe SUBCUT (14:55)
--- NOTE | 2020-07-02 17:30 | PM.PN ---
Subjective Subjective: Interval history: Patient denies any new complaints today except that she feels cold overall. She is able to pass flatus. She has not had a bowel movement today, however did have a semisoft bowel movement yesterday. She was n.p.o. this morning in case of any anticipated procedures, however now that leukocytosis has trended down to 12, this is being deferred and opting for conservative management at this time. She remains afebrile and hemodynamically stable. Medications: Reviewed: Yes Vitals/I&O/Wt Last Vital Signs Temp 98.1 F 07/02/20 16:00 Pulse 76 07/02/20 16:00 Resp 18 07/02/20 16:00 BP 148/80 07/02/20 16:00 Pulse Ox 92 07/02/20 16:00 07/02/20 07/02/20 07/02/20 06:59 14:59 22:59 Intake Total 171.667 / 531.667 750 / 750 Output Total 200 / 200 300 / 300 Balance -28.333 / 331.667 450 / 450 Physical Exam Narrative: EXAM NARRATIVE: GEN: Awake, alert and oriented, no acute distress CVS: S1S2 N RS: CTA B/L Abd: Soft, nt/nd , bs+ , abdominal incision site healing well. CONTINUOUS WASHER OPERATOR: no focal neuro deficits Urinary Catheter Management^: Fernando: Cath Placed During This Visit: yes, but has since been removed by the nurse Reason for Continuing Indwelling Catheter: Accurate Measurement of Urinary Output in Critically Ill Patients Urinary Catheter Date of Insertion: 06/17/20 Urinary Catheter Time of Insertion: 03:50 Date Urinary Catheter Removed: 06/22/20 Time Urinary Catheter Discontinued: 14:00 Data : 07/02/20 04:28 07/02/20 04:28 Micro: Microbiology 06/29/20 13:18 Sputum Culture - Final Sputum - Expectorated Sputum Ashley albicans A&P Additional A&P Information 80-year-old lady admitted since June 16 after being discovered to have an intra-abdominal abscess and a new mass in the transverse colon. Status post IR guided drainage of the said abscess on June 17 with culture growing Bacteroides fragilis alone. Colonoscopy, however could not traverse the transverse colon lesion. 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 She is now status post laparoscopic left hemicolectomy with [id number] anastomosis. Postop course is notable for persistent leukocytosis, although clinically patient has had return of bowel function, able to pass pieces and flatus, tolerating a liquid diet at this present time. She remains afebrile. #Newly diagnosed adenocarcinoma of the transverse colon Status post hemicolectomy with end-to-end anastomosis on June 19 Currently on a full liquid diet, plan to advance as tolerated over the next 24 to 48 hours. Oncology referral as outpatient #Intra-abdominal abscess Patient initially was noted to have an intra-abdominal abscess upon presentation, which may have been likely to secondary to a contained perforation versus bacterial translocation into an abdominal collection. Underwent IR guided aspiration on June 17 which revealed only Bacteroides fragilis on culture, however do expect an abdominal collection to be polymicrobial therefore patient has remained on broad-spectrum antibiotic coverage, initially on Zosyn and vancomycin, transition to imipenem and vancomycin and Flagyl upon persisting leukocytosis. Flagyl has since been discontinued on 1226. Because of persisting postop leukocytosis, patient did undergo repeat CAT scans on June 25 and then again on June 30, which shows there is moderate amount of free fluid in the abdomen and pelvis with some internal complexity raising concern for recurrent abscess. Latter may be related to anastomtic leak, however patient's return of bowel function, tolerating po diet and hemodynamic stability do not warrant repeat surgical exploration at this time. Will continue conservative measures for now and monitor response. Plan to treat with an extended course of abx over the next 2-3 weeks and then repeat imaging to follow up on resolution of these collections. Picc line to facilitate above. Transition to iv ertapenem once nearing discharge. # B/L pleural effusions, likely to be reactive effusions, no gross consolidation noted, less likely parapneumonic effusion. Encourage incenetive spiromtery- placed at bedside, encourage mobilization # OMI, resolved # descending aortic aneursym: Outpatient follow up Dispo: SNF placement Attestations Medical Necessity Statement*: trend leukocytosis, monitor bowel function, PICC line, need for iv abx, dispo planning Coding Level of Care Code Acute It Specialist for [facility] Bullock
[2020-07-03] VITALS (8 sets, daily range): BP systolic 122–144; BP diastolic 69–80; PULSE 70–82; RESP 17–18; TEMP 36.2–36.7; O2SAT 92–97
--- NOTE | 2020-07-03 | XR_ITS ---
WS: [id number] CHEST XRAY TECHNIQUE: Portable chest. CLINICAL INFORMATION: ABNORMALITY FOUND ON PICC LINE XRAY COMPARISON: July 03, 2020 FINDINGS: Right PICC line with tip in the mid SVC. Heart: Cardiomegaly. Lobulated descending thoracic aortic aneurysm better seen on the prior CT. Lungs: Chronic emphysematous changes. Small bilateral pleural effusions. Cholecystectomy clips. No pn eumothorax. Bones: Normal visualized bony structures. XR/XR chest 1V portable [id number] IMPRESSION: Right PICC line with tip in the mid SVC.
[2020-07-03 06:32] LABS: Basophils # 0.1 10^3/uL (0.0-0.1); Basophils % 0.6 %; Eosinophils # 0.2 10^3/uL (0.0-0.8); Eosinophils % 1.4 %; Hematocrit 32.2 % (37.0-47.0); Hemoglobin 9.6 g/dL (11.5-15.3); Lymphocytes # 0.8 10^3/uL (0.8-4.8); Lymphocytes % 6.9 %; Mean Corpuscular HGB Conc 29.8 g/dL (30.0-36.0); Mean Corpuscular Hemoglobin 28.2 pg (28.0-34.0); Mean Corpuscular Volume 94.4 fL (81-99); Mean Platelet Volume 11.7 fL (7.4-10.4); Monocytes # 0.6 10^3/uL (0.2-0.9); Monocytes % 5.1 %; Neutrophils # 9.21 10^3/uL (1.8-7.7); Neutrophils % 85.3 %; Nucleated Red Blood Cells % 0 %; Platelet Count 341 10^3/cmm (130-400); Red Blood Count 3.41 10^6/uL (4.1-5.3); Red Cell Distribution Width 18.3 % (12.1-15.1); White Blood Count 10.8 10^3/uL (4.0-10.0)
--- NOTE | 2020-07-03 06:34 | PC.NURSE ---
SHIFT SUMMARY Rested well without c/o pain. Continues to be very weak and easily SOB with exertion. Says she does that at home as well and just has to rest. Abd incisions all C&D. SUPERVISOR COFFEE.
[2020-07-03 06:54] LABS: Alanine Aminotransferase 6 U/L (0-33); Albumin Level 2.2 g/dL (3.5-5.2); Alkaline Phosphatase 70 IU/L (35-105); Anion Gap 12.1 (5-19); Aspartate Amino Transferase 13 U/L (0-32); Blood Urea Nitrogen 13 mg/dL (8-23); Calcium 8.1 mg/dL (8.5-10.5); Carbon Dioxide 25 mmol/L (22-29); Chloride 114 mmol/L (98-107); Creatinine Clr Calc Pharmacy 45.9164; Glucose 96 mg/dL (65-115); Osmolality Calculated 304 mOsm/kg (285-295); Potassium 4.1 mmol/L (3.5-5.1); Sodium 147 mmol/L (136-145); Total Bilirubin 0.2 mg/dL (0.15-1.2); Total Protein 5.2 g/dL (6.6-8.7)
--- NOTE | 2020-07-03 09:09 | PM.PN ---
Subjective Subjective: Interval history: Date of visit : 07/02/2020: Patient had bowel movement, no nausea or vomiting, denies any abdominal pain feels a bit bloated. Vitals/I&O/Wt Last Vital Signs Temp 97.5 F L 07/03/20 07:41 Pulse 82 07/03/20 07:41 Resp 18 07/03/20 07:41 BP 129/79 07/03/20 07:41 Pulse Ox 93 07/03/20 07:41 07/02/20 07/03/20 07/03/20 22:59 06:59 14:59 Intake Total 200 / 1200 250 / 1200 Output Total 400 / 1200 500 / 1200 Balance -200 / 0 -250 / 0 Physical Exam Narrative: EXAM NARRATIVE: Abomen: soft nt , mildly distended, incision c/d/i, samuel removed Urinary Catheter Management^: Fernando: Cath Placed During This Visit: yes, but has since been removed by the nurse Reason for Continuing Indwelling Catheter: Accurate Measurement of Urinary Output in Critically Ill Patients Urinary Catheter Date of Insertion: 06/17/20 Urinary Catheter Time of Insertion: 03:50 Date Urinary Catheter Removed: 06/22/20 Time Urinary Catheter Discontinued: 14:00 Data : 07/03/20 05:08 07/03/20 05:08 Micro: Microbiology 06/29/20 13:18 Sputum Culture - Final Sputum - Expectorated Sputum Ashley albicans A&P Assessment and plan (1) S/P left hemicolectomy: Status: Acute (1) S/P left hemicolectomy: Status post left hemicolectomy with postop ileus, appears to be improving Ileus: restart full liquid diet Leukocytosis: Patient is on imipenem, vancomycin and Flagyl, afebrile, WBC down to 12, recheck labs tomorrow CT abdomen pelvis on 06/29/2020 did not reveal any drainable collections, chest x-ray: No acute UA: Negative Peritoneal fluid: Bacteroids Blood cultures: No growth C. difficile: negative Plan for PICC line placement and d/c to [facility] on iv antibiotics Anemia: stable Ambulate with physical therapy Nutrition: Ensure 1 can 3 times a day Hypokalemia: Resolved Hyponatremia: Resolved Protonix 40 mg p.o. daily Lovenox for DVT prophylaxis Patient's ileus has been resolving and leukocytosis is trending down Attestations Medical Necessity Statement*: post hemicolectomy with leukocytosis trending down Coding Level of Care Code Acute International Editorial Producer for [facility] Fwd Diagnoses S/P left hemicolectomy Z90.49
[2020-07-03] MEDS: pantoprazole DR 40 mg Tablet PO (09:31)
[2020-07-03] MEDS: amlodipine 10 mg Tablet PO (09:31)
[2020-07-03] MEDS: metoprolol succinate ER (24 HR) 50 mg Tablet 150 MG PO (09:31)
[2020-07-03] MEDS: potassium chloride ER 20 mEq Tablet 80 MEQ PO (09:32)
--- NOTE | 2020-07-03 11:05 | PC.SOCIAL ---
IMM Update Pg. 2 of IMM updated and reviewed with patient, copy provided.
--- NOTE | 2020-07-03 12:25 | PM.PN ---
Subjective Subjective: Interval history: Overall patient feels well, no acute events overnight, patient is passing gas and having bowel movements. Vitals/I&O/Wt Last Vital Signs Temp 97.7 F 07/03/20 11:18 Pulse 70 07/03/20 11:18 Resp 18 07/03/20 11:18 BP 144/76 07/03/20 11:18 Pulse Ox 92 07/03/20 11:18 07/02/20 07/03/20 07/03/20 22:59 06:59 14:59 Intake Total 200 / 950 250 / 1200 Output Total 400 / 700 500 / 1200 Balance -200 / 250 -250 / 0 Physical Exam Narrative: EXAM NARRATIVE: Patient is conscious alert oriented X3 BMI 24 Head and neck examination PERRLA no masses no cervical lymphadenopathy no jaundice Abdomen nontender mildly distended soft no organomegaly guarding or rigidity/no signs of peritonitis Incisions are clean dry and intact there is one skin staple towards the right upper quadrant incision. There was all samuel are removed. Urinary Catheter Management^: Fernando: Cath Placed During This Visit: yes, but has since been removed by the nurse Reason for Continuing Indwelling Catheter: Accurate Measurement of Urinary Output in Critically Ill Patients Urinary Catheter Date of Insertion: 06/17/20 Urinary Catheter Time of Insertion: 03:50 Date Urinary Catheter Removed: 06/22/20 Time Urinary Catheter Discontinued: 14:00 Data : 07/03/20 05:08 07/03/20 05:08 Micro: Microbiology 06/29/20 13:18 Sputum Culture - Final Sputum - Expectorated Sputum Ashley albicans A&P Assessment and plan (1) S/P left hemicolectomy: Status: Acute (1) S/P left hemicolectomy: Status post left hemicolectomy 06/19/2020 with postop ileus resolving. Continue full liquid diet and protein shakes Leukocytosis: Stable patient on antimicrobial therapy per Dr. Calle CT abdomen pelvis on 06/29/2020 did not reveal any drainable collections, chest x-ray: No acute UA: Negative Peritoneal fluid: Bacteroids Blood cultures: No growth C. difficile: negative Pending placement of PICC line with the potential discharge [facility] Anemia: stable Ambulate with physical therapy Nutrition: Ensure 1 can 3 times a day Protonix 40 mg p.o. daily Lovenox for DVT prophylaxis DC remaining of skin samuel Patient continues to improve,please call for questions or concerns. Attestations Medical Necessity Statement*: Inpatient hospitalization for medical and surgical care Time Spent in Patient Care: (>than 50% of time spent in counselling and/or direct pt care on unit). Coding Level of Care Code Acute [employer] Solutions Architect for [facility] Fwd Diagnoses S/P left hemicolectomy Z90.49
--- NOTE | 2020-07-03 13:39 | XR_ITS ---
WS: [id number] CHEST XRAY TECHNIQUE: Portable chest. CLINICAL INFORMATION: PICC Line Placement COMPARISON: None. FINDINGS: Right PICC line with tip in the mid SVC. Unchanged descending thoracic aortic aneurysm. Small bilater al pleural effusions. Peripheral lucency right lung has a normal appearance on the following frontal chest radiograph. No p neumothorax. . XR/XR chest 1V portable [id number] IMPRESSION: Right PICC line with tip in the mid SVC.
--- NOTE | 2020-07-03 14:18 | PM.PN ---
Subjective Subjective: Interval history: Leukocytosis continues to trend down, now at 10.8. Patient denies any complains of abdominal pain or nausea, passing gas. Tolerating a full liquid diet. Abdominal exam benign. Medications: Reviewed: Yes Vitals/I&O/Wt Last Vital Signs Temp 97.7 F 07/03/20 11:18 Pulse 70 07/03/20 13:50 Resp 18 07/03/20 13:50 BP 144/76 07/03/20 11:18 Pulse Ox 96 07/03/20 13:50 07/02/20 07/03/20 07/03/20 22:59 06:59 14:59 Intake Total 200 / 950 250 / 1200 Output Total 400 / 700 500 / 1200 Balance -200 / 250 -250 / 0 Physical Exam Narrative: EXAM NARRATIVE: GEN: Awake, alert and oriented, no acute distress CVS: S1S2 N RS: CTA B/L Abd: Soft, nt/nd , bs+ [employer]IVER: no focal neuro deficits Urinary Catheter Management^: Fernando: Cath Placed During This Visit: yes, but has since been removed by the nurse Reason for Continuing Indwelling Catheter: Accurate Measurement of Urinary Output in Critically Ill Patients Urinary Catheter Date of Insertion: 06/17/20 Urinary Catheter Time of Insertion: 03:50 Date Urinary Catheter Removed: 06/22/20 Time Urinary Catheter Discontinued: 14:00 Data : 07/03/20 05:08 07/03/20 05:08 Micro: Microbiology 06/29/20 13:18 Sputum Culture - Final Sputum - Expectorated Sputum Ashley albicans A&P Assessment and plan (1) Intra-abdominal abscess: Status: Acute (2) Colonic mass: Status: Resolved (3) Postoperative ileus: Status: Acute (4) Constipation: Status: Resolved (5) Acute kidney injury superimposed on chronic kidney disease: Status: Resolved (6) Pleural effusion: Status: Acute Additional A&P Information 80-year-old lady admitted since June 16 after being discovered to have an intra-abdominal abscess and a new mass in the transverse colon. Status post IR guided drainage of the said abscess on June 17 with culture growing Bacteroides fragilis alone. Colonoscopy, however could not traverse the transverse colon lesion on 06/19. 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 She is now status post laparoscopic left hemicolectomy with [id number] anastomosis. Postop course is notable for persistent leukocytosis, although clinically patient has had return of bowel function, able to pass pieces and flatus, tolerating a liquid diet at this present time. She remains afebrile. 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 Underwent IR guided aspiration on June 17 which revealed only Bacteroides fragilis on culture, however do expect an abdominal collection to be polymicrobial therefore patient has remained on broad-spectrum antibiotic coverage, initially on Zosyn and vancomycin, transition to imipenem and vancomycin and Flagyl upon persisting leukocytosis. Flagyl and vancomycin has since been discontinued on 1226. Because of persisting postop leukocytosis, patient did undergo repeat CAT scans on June 25 and then again on June 30, which shows there is moderate amount of free fluid in the abdomen and pelvis with some internal complexity raising concern for recurrent abscess. Latter may be related to anastomtic leak, however patient's return of bowel function, tolerating po diet and hemodynamic stability do not warrant repeat surgical exploration at this time. Will continue conservative measures for now and monitor response. Plan to treat with an extended course of abx over the next 2-3 weeks and then repeat imaging to follow up on resolution of these collections. Picc line to facilitate above to be placed today. Transition to iv ertapenem 1g iv qd once nearing discharge. Alternate differentials include peripancreatic collection in the paracolic gutters, however pancreas does appear to be normal on recent imaging. # B/L pleural effusions, likely to be reactive effusions, no gross consolidation noted, less likely parapneumonic effusion. Encourage incentive spiromtery- placed at bedside, encourage mobilization ,saturating well on RA currently # OMI, resolved # descending aortic aneursym: Outpatient follow up Dispo: SNF placement, awaiting prior auth, picc line placement DVT ppx: lovenox Attestations Medical Necessity Statement*: Appears to be clinically improving, awaiting prior Auth, PICC line placement Coding Level of Care Code Acute Manifest/Order Organizer Print Orders for [facility] Diagnoses Intra-abdominal abscess K65.1 Colonic mass K63.89 Postoperative ileus K91.89; K56.7 Constipation K59.00 Acute kidney injury superimposed on chronic kidney disease N17.9; N18.9 Pleural effusion J90
[2020-07-03] MEDS: dextrose 5%-sod chloride 0.45% 1,000 ML 50 ML IV (15:38)
[2020-07-03] MEDS: enoxaparin 40 mg/0.4 mL Syringe SUBCUT (15:42)
[2020-07-04] VITALS (8 sets, daily range): BP systolic 119–133; BP diastolic 69–79; PULSE 61–69; RESP 14–24; TEMP 36.1–36.7; O2SAT 91–96
[2020-07-04 02:36] LABS: Basophils # 0.1 10^3/uL (0.0-0.1); Basophils % 0.7 %; Eosinophils # 0.2 10^3/uL (0.0-0.8); Eosinophils % 1.7 %; Hemoglobin 9.2 g/dL (11.5-15.3); Lymphocytes % 10.6 %; Mean Corpuscular HGB Conc 29.7 g/dL (30.0-36.0); Mean Corpuscular Volume 94.2 fL (81-99); Mean Platelet Volume 11.2 fL (7.4-10.4); Monocytes # 0.7 10^3/uL (0.2-0.9); Monocytes % 7.6 %; Neutrophils # 7.53 10^3/uL (1.8-7.7); Neutrophils % 78.9 %; Nucleated Red Blood Cells % 0 %; Platelet Count 335 10^3/cmm (130-400); Red Blood Count 3.29 10^6/uL (4.1-5.3); Red Cell Distribution Width 18.3 % (12.1-15.1); White Blood Count 9.6 10^3/uL (4.0-10.0)
[2020-07-04 03:02] LABS: Alanine Aminotransferase 7 U/L (0-33); Albumin Level 2.2 g/dL (3.5-5.2); Alkaline Phosphatase 66 IU/L (35-105); Anion Gap 10.3 (5-19); Aspartate Amino Transferase 13 U/L (0-32); Blood Urea Nitrogen 15 mg/dL (8-23); Calcium 8.3 mg/dL (8.5-10.5); Carbon Dioxide 26 mmol/L (22-29); Chloride 112 mmol/L (98-107); Creatinine Clr Calc Pharmacy 45.9164; Glucose 118 mg/dL (65-115); Osmolality Calculated 300 mOsm/kg (285-295); Potassium 4.3 mmol/L (3.5-5.1); Sodium 144 mmol/L (136-145); Total Bilirubin 0.2 mg/dL (0.15-1.2); Total Protein 5.2 g/dL (6.6-8.7)
--- NOTE | 2020-07-04 06:08 | PC.NURSE ---
SHIFT SUMMARY Has rested well tonight. Drank more tonight. Almost finished can of Sprite. IV infusing at 50ml/hr rate. Continues to receive IV antibiotics. Midline and X3 stab incisions all C&D. 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 Dr Nagy in to see this morning
[2020-07-04] MEDS: pantoprazole DR 40 mg Tablet PO (08:28)
[2020-07-04] MEDS: metoprolol succinate ER (24 HR) 50 mg Tablet 150 MG PO (08:28)
[2020-07-04] MEDS: potassium chloride ER 20 mEq Tablet 80 MEQ PO (08:28)
[2020-07-04] MEDS: amlodipine 10 mg Tablet PO (08:28)
--- NOTE | 2020-07-04 13:01 | PM.PN ---
Subjective Subjective: Interval history: New complaints today, patient is moved out of bed to chair, performing spirometry, overall appears to be in better spirits today and has more energy. Leukocytosis is now resolved Medications: Reviewed: Yes Vitals/I&O/Wt Last Vital Signs Temp 96.9 F L 07/04/20 10:59 Pulse 61 07/04/20 10:59 Resp 18 07/04/20 10:59 BP 127/79 07/04/20 10:59 Pulse Ox 94 07/04/20 10:59 07/03/20 07/04/20 07/04/20 22:59 06:59 14:59 Intake Total 220 / 320 340 / 660 240 / 240 Output Total 400 / 600 500 / 1100 Balance -180 / -280 -160 / -440 240 / 240 Physical Exam Narrative: EXAM NARRATIVE: GEN: Awake, alert and oriented, no acute distress CVS: S1S2 N RS: CTA B/L Abd: Soft, nt/nd , bs+ TOY PACKER: no focal neuro deficits Urinary Catheter Management^: Fernando: Cath Placed During This Visit: yes, but has since been removed by the nurse Reason for Continuing Indwelling Catheter: Accurate Measurement of Urinary Output in Critically Ill Patients Urinary Catheter Date of Insertion: 06/17/20 Urinary Catheter Time of Insertion: 03:50 Date Urinary Catheter Removed: 06/22/20 Time Urinary Catheter Discontinued: 14:00 Data : 07/04/20 02:27 07/04/20 02:27 A&P Assessment and plan (1) Intra-abdominal abscess: Status: Acute (2) Colonic mass: Status: Resolved (3) Postoperative ileus: Status: Acute (4) Constipation: Status: Resolved (5) Acute kidney injury superimposed on chronic kidney disease: Status: Resolved (6) Pleural effusion: Status: Acute Additional A&P Information 80-year-old lady admitted since June 16 after being discovered to have an intra-abdominal abscess and a new mass in the transverse colon. Status post IR guided drainage of the said abscess on June 17 with culture growing Bacteroides fragilis alone. Colonoscopy, however could not traverse the transverse colon lesion on 06/19. 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 She is now status post laparoscopic left hemicolectomy with rkoh-tb-syqk anastomosis. Postop course is notable for persistent leukocytosis, although clinically patient has had return of bowel function, able to pass pieces and flatus, tolerating a liquid diet at this present time. She remains afebrile. 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 Underwent IR guided aspiration on June 17 which revealed only Bacteroides fragilis on culture, however do expect an abdominal collection to be polymicrobial therefore patient has remained on broad-spectrum antibiotic coverage, initially on Zosyn and vancomycin, transition to imipenem and vancomycin and Flagyl upon persisting leukocytosis. Flagyl and vancomycin has since been discontinued on 1226. Because of persisting postop leukocytosis, patient did undergo repeat CAT scans on June 25 and then again on June 30, which shows there is moderate amount of free fluid in the abdomen and pelvis with some internal complexity raising concern for recurrent abscess. Latter may be related to anastomtic leak, however patient's return of bowel function, tolerating po diet and hemodynamic stability do not warrant repeat surgical exploration at this time. Will continue conservative measures for now and monitor response. Plan to treat with an extended course of abx over the next 2-3 weeks and then repeat imaging to follow up on resolution of these collections. Picc line placed on July 03. Transition to iv ertapenem 1g iv qd once nearing discharge. Alternate differentials include peripancreatic collection in the paracolic gutters, however pancreas does appear to be normal on recent imaging. # B/L pleural effusions, likely to be reactive effusions, no gross consolidation noted, less likely parapneumonic effusion. 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
[2020-07-04] MEDS: enoxaparin 40 mg/0.4 mL Syringe SUBCUT (16:19)
--- NOTE | 2020-07-04 16:52 | P.PN_ITS ---
Subjective Subjective: Interval history: Normalization of WBC count. Overall patient is doing well and tolerating p.o. intake, received right arm PICC line yesterday and the plan potentially to discharge to senior living. Vitals/I&O/Wt Last Vital Signs Temp 98.0 F 07/04/20 15:32 Pulse 65 07/04/20 15:32 Resp 16 07/04/20 15:32 BP 133/75 07/04/20 15:32 Pulse Ox 93 07/04/20 15:32 07/04/20 07/04/20 07/04/20 06:59 14:59 22:59 Intake Total 340 / 660 460 / 460 Output Total 500 / 1100 Balance -160 / -440 460 / 460 Physical Exam Narrative: EXAM NARRATIVE: Patient is conscious alert oriented X3 BMI 24 Head and neck examination PERRLA no masses no cervical lymphadenopathy no jaundice Right arm PICC line in place Abdomen nontender mildly distended soft no organomegaly guarding or rigidity/no signs of peritonitis Urinary Catheter Management^: Fernando: Cath Placed During This Visit: yes, but has since been removed by the nurse Reason for Continuing Indwelling Catheter: Accurate Measurement of Urinary Output in Critically Ill Patients Urinary Catheter Date of Insertion: 06/17/20 Urinary Catheter Time of Insertion: 03:50 Date Urinary Catheter Removed: 06/22/20 Time Urinary Catheter Discontinued: 14:00 Data : 07/04/20 02:27 07/04/20 02:27 A&P Assessment and plan (1) S/P left hemicolectomy: Status: Acute (1) S/P left hemicolectomy: Status post left hemicolectomy 06/19/2020 with postop ileus resolving. Continue full liquid diet and protein shakes Leukocytosis: Stable patient on antimicrobial therapy per Dr. Calle CT abdomen pelvis on 06/29/2020 did not reveal any drainable collections, chest x-ray: No acute UA: Negative Peritoneal fluid: Bacteroids Blood cultures: No growth C. difficile: negative Pending placement of PICC line with the potential discharge to senior living Anemia: stable Ambulate with physical therapy Nutrition: Ensure 1 can 3 times a day Protonix 40 mg p.o. daily Lovenox for DVT prophylaxis Patient continues to improve,please call for questions or concerns. From surgical standpoint of view patient to be transferred to senior living and follow-up with Dr. Fraser as an outpatient Attestations Medical Necessity Statement*: Require inpatient hospitalization for medical care Time Spent in Patient Care: (>than 50% of time spent in counselling and/or direct pt care on unit) . 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
[2020-07-05] VITALS: BP 125/74; PULSE 68; RESP 17; TEMP 36.6; O2SAT 91
[2020-07-05] MEDS: lactulose oral liq 20 gm/30 mL UDC 10 GM PO (01:01)
[2020-07-05 04:00] VITALS: BP 140/81; PULSE 71; RESP 18; TEMP 36.4; O2SAT 93
[2020-07-05] MEDS: dextrose 5%-sod chloride 0.45% 1,000 ML 50 ML IV (05:25)
[2020-07-05 07:49] VITALS: BP 125/76; PULSE 73; RESP 17; TEMP 36.6; O2SAT 92
[2020-07-05 08:49] VITALS: PULSE 73; RESP 18; O2SAT 95
[2020-07-05] MEDS: potassium chloride ER 20 mEq Tablet 80 MEQ PO (08:50)
[2020-07-05] MEDS: amlodipine 10 mg Tablet PO (08:51)
[2020-07-05] MEDS: pantoprazole DR 40 mg Tablet PO (08:51)
[2020-07-05] MEDS: metoprolol succinate ER (24 HR) 50 mg Tablet 150 MG PO (08:51)
--- NOTE | 2020-07-05 10:57 | PC.SOCIAL ---
IMM Update Pg. 2 of IMM updated and reviewed with patient who verbalized understanding. Copy provided.
[2020-07-05 11:28] VITALS: BP 124/68; PULSE 64; RESP 15; TEMP 36.4; O2SAT 93
[2020-07-05] MEDS: ertapenem 1,000 MG in sodium chloride 0.9% (plus) 100 ML 200 MG IV (13:30)
[2020-07-05 15:31] VITALS: BP 124/68; PULSE 64; RESP 15; TEMP 36.4; O2SAT 93
--- NOTE | 2020-07-14 17:15 | P.DS_ITS ---
Discharge Providers Date of Admission: 06/16/20 21:03 Date of Discharge: Jun Attending Provider at Admission: Agustín Buchanan MD Attending Provider at Discharge: Tara Matthews MD Diagnoses at Discharge Discharge Diagnosis (1) S/P left hemicolectomy: Status: Acute (2) Pleural effusion: Status: Acute (3) Intra-abdominal abscess: Status: Acute (4) Postoperative ileus: Status: Acute Reason for Visit Reason for Visit: ABD PAIN Hospital Course Hospital Course 80-year-old lady admitted since June 16 after being discovered to have an intra-abdominal abscess and a new mass in the transverse colon. Status post IR guided drainage of the said abscess on June 17 with culture growing Bacteroides fragilis alone. Colonoscopy, however could not traverse the transverse colon lesion on 06/19. 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 She is now status post laparoscopic left hemicolectomy with soox-op-oeci anastomosis. Postop course is notable for persistent leukocytosis, now resolved, although clinically patient has had return of bowel function, able to pass feces and flatus, tolerating a diet at this present time. She remains afebrile. 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 Underwent IR guided aspiration on June 17 which revealed only Bacteroides fragilis on culture, however do expect an abdominal collection to be polymicrobial therefore patient has remained on broad-spectrum antibiotic coverage, initially on Zosyn and vancomycin, transition to imipenem and vancomycin and Flagyl upon persisting leukocytosis. Flagyl and vancomycin has since been discontinued on 1226. Because of persisting postop leukocytosis, patient did undergo repeat CAT scans on June 25 and then again on June 30, which shows there is moderate amount of free fluid in the abdomen and pelvis with some internal complexity raising concern for recurrent abscess. Latter may be related to anastomtic leak, however patient's return of bowel function, tolerating po diet and hemodynamic stability do not warrant repeat surgical exploration at this time. Will continue conservative measures for now and monitor response. Plan to treat with an extended course of abx over the next 2-3 weeks and then repeat imaging to follow up on resolution of these collections. Picc line placed on July 03. Transitioned to iv ertapenem 1g iv qd at discharge. Alternate differentials include peripancreatic collection in the paracolic gutters, however pancreas does appear to be normal on recent imaging. # B/L pleural effusions, likely to be reactive effusions, no gross consolidation noted, less likely parapneumonic effusion. 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: no focal neuro deficits Urinary Catheter Management^: Fernando: Cath Placed During This Visit: yes, but has since been removed by the nurse Reason for Continuing Indwelling Catheter: Accurate Measurement of Urinary Output in Critically Ill Patients Urinary Catheter Date of Insertion: 06/17/20 Urinary Catheter Time of Insertion: 03:50 Date Urinary Catheter Removed: 06/22/20 Time Urinary Catheter Discontinued: 14:00 Discharge Data Data Completed and Pending: Completed Studies During Hospitalization Category Date Time Status CT abdomen pelvis w con* [id number] Rout ine Cat Scan 06/25/20 06:[address] abdomen pelvis w con* [id number] Rout ine Cat Scan 06/30/20 16:[address] abdomen pelvis w con* [id number] Urge nt Cat Scan 06/16/20 18:[address] [place] [id number] Routine Cat Scan 06/17/20 10:46 Completed CXRP [XR chest 1V portable [id number]] R outine Exams 06/25/20 10:01 Completed CXRP [XR chest 1V portable [id number]] S tat Exams 06/19/20 18:07 Completed XR KUB portable 7 [id number] Routine Exams 06/18/20 14:00 Completed XR abdomen min 2V [id number] Routine Exams 06/23/20 10:56 Completed XR chest 1V ashlyn ble [id number] Routine Exams 06/22/20 08:23 Completed XR chest 1V ashlyn ble [id number] Routine Exams 06/28/20 12:23 Completed XR chest 1V ashlyn ble [id number] Routine Exams 06/30/20 06:00 Completed XR chest 1V ashlyn ble [id number] Routine Exams 07/03/20 Completed XR chest 1V ashlyn ble [id number] Stat Exams 07/03/20 13:39 Completed Cytology [PTH] Ro utine Pth 06/17/20 10:52 Completed Pathology: Surgic al [PTH] Routine Pth 06/18/20 13:36 Completed Pathology: Surgic al [PTH] Routine Pth 06/19/20 17:14 Completed Pending at discharge Category Date Time Status MRSA by PCR Routi ne Lab 06/22/20 10:00 Received Mycobacteria, Cul ture w/Fluor Routi ne Lab 06/17/20 12:20 Results Vitals: Last Vital Signs Temp 97.5 F L 07/05/20 15:31 Pulse 64 07/05/20 15:31 Resp 15 07/05/20 15:31 BP 124/68 07/05/20 15:31 Pulse Ox 93 07/05/20 15:31 Discharge Plan Discharge Patient Disposition: Xfer SNF Condition: Stable Prescriptions: New pantoprazole 40 mg Tablet,Delayed Release (Dr/Ec) 40 mg PO DAILY 30 Days Qty: 30 RF: 0 ertapenem 1 gram recon soln 1 g IV Q24H 14 Days RF: 0 Continued metoprolol succinate 100 mg tablet extended release 24 hr 150 mg PO DAILY@09 RF: 0 amlodipine 10 mg tablet 10 mg PO DAILY@09 RF: 0 Emergen-C 1,000 mg Powder Effervescent In Packet 1 ea PO DAILY RF: 0 Vitamin D3 125 mcg (5,000 unit) Tablet 250 mcg PO DAILY PRN (Reason: unknown) RF: 0 Discharge Orders: Discharge Order (Routine); Ordered 07/05/20 Ordered By: Tara Matthews Other Ambulatory Orders: CT abdomen pelvis w con* [id number] (Routine) Timeframe: 20200716 Facility: [facility] - Location: [facility] Ordered By: Tara Matthews Comprehensive Metabolic Panel (Routine) Timeframe: 20200716 Facility: [facility] - Location: Lab - Main Lab Ordered By: Tara Matthews Referrals: [facility] [Outside] Eligio Fraser MD [Physician] - 2 weeks Tara Matthews MD [Hospitalist] - 07/24/20 12:00 pm Discharge Diet: As Directed Discharge Activity: Resume usual activity and Increase activity as tolerated Patient Instructions: Pantoprazole (By mouth), Ertapenem (Injection), Colectomy (DC), Pleural Effusion (DC), Ileus (DC) Discharge Attestations Time Spent in Discharge Care*: greater than 30 min Specific Discharge Activities: educating patient, educating and/or supporting family/caregiver, discussing with rn case manager/social workers/dc planners and documenting/other paperwork Quality Metrics Clinical Quality Measures During this hospital stay, did patient experience: None Coding Level of Care Code Acute Pcu Rn for Chg Fwd Diagnoses S/P left hemicolectomy Z90.49 Pleural effusion J90 Intra-abdominal abscess K65.1 Postoperative ileus K91.89; K56.7
== END 2020-07-05 15:31 | disposition skilled nursing facility (03) | DRG 329 ==
LOC: ER 21:20 → ICU 21:36 → MEDSURG 06-22 12:08
PROVIDERS: Hospitalist; Internal Medicine; Surgery; Admitting Provider Internal Medicine; Emergency Provider Emergency Medicine; Visit Provider Student in an Organized Health Care Education/Training Program
PROC: 0DJD8ZZ Inspection of Lower Intestinal Tract, Via Natural or Artificial Opening Endoscopic (ICD-10-PCS; CPT 45378; principal; 2020-06-18 12:00)
PROC: 0DTM4ZZ Resection of Descending Colon, Percutaneous Endoscopic Approach (ICD-10-PCS; 2020-06-19 11:00)
PROC: 0DTM4ZZ Resection of Descending Colon, Percutaneous Endoscopic Approach (ICD-10-PCS; 2020-06-19 11:00)
DX: C18.4 Malignant neoplasm of transverse colon (principal); K65.1 Peritoneal abscess; J90 Pleural effusion, not elsewhere classified; K56.7 Ileus, unspecified; N17.9 Acute kidney failure, unspecified; E87.1 Hypo-osmolality and hyponatremia; I71.2 Thoracic aortic aneurysm, without rupture; D64.9 Anemia, unspecified; E87.6 Hypokalemia; K59.00 Constipation, unspecified; I12.9 Hypertensive chronic kidney disease with stage 1 through stage 4 chronic kidney disease, or unspecified chronic kidney disease; N18.30 Chronic kidney disease, stage 3 unspecified; B96.6 Bacteroides fragilis [B. fragilis] as the cause of diseases classified elsewhere; K57.30 Diverticulosis of large intestine without perforation or abscess without bleeding; J44.9 Chronic obstructive pulmonary disease, unspecified; K43.2 Incisional hernia without obstruction or gangrene; Z87.891 Personal history of nicotine dependence; Z90.711 Acquired absence of uterus with remaining cervical stump
CPT/HCPCS: 12345; 36415; 36416; 36569; 36592; 36600; 45380; 45381; 49406; 51702; 71045; 74018; 74019; 74177; 80048; 80053; 80202; 80500; 81001; 82042; 82150; 82378; 82465; 82803; 82945; 82962; 83605; 83615; 83690; 83735; 83986; 84075; 84145; 84157; 84315; 84478; 84484; 84560; 85025; 85610; 86850; 86900; 87015; 87040; 87070; 87075; 87077; 87106; 87116; 87205; 87206; 87493; 87641; 87801; 88112; 88305; 88309; 89050; 93005; 94002; 94003; 94640; 94799; 96372; 96375; 97110; 97116; 97161; 97530; 99281; A4570; C9290; J0743; J1170; J1335; J1644; J1650; J1815; J2405; J2543; J2704; J2765; J2920; J3010; J3370; J3480; J3490; J7030; J7040; J7050; J7799; Q9967; S0030

== ENCOUNTER 2020-08-06 10:14 | Outpatient (CLI) | payer MEDICARE, MEDICAID, SELFPAY ==
--- NOTE | 2020-08-07 17:01 | ONC CON_ITS ---
Dr. Deras New Patient Note Patient: Chastity Cramer Unit #: [id number]: 1940 Dicatated By: Juanpablo Deras M.D.Date of Visit: Aug 06, 2020 Onc MED New Patient/Consult Referring Physician: Dr. Michel Mcintosh M.D. History of Present Illness: Ms. Chastity Cramer, is a 80-year-old female with a history of COPD, arthritis, hypertension, on June 16, 2020 she presented to [facility] with a 2-day history of progressive abdominal pain which was sharp and diffuse in nature, and constipation over 5 days. No nausea or vomiting, no fever chills, underwent CT scan of abdomen which showed colon mass with possible perforation versus abscess, her white blood count was also elevated so she was started on vancomycin and Zosyn and patient was admitted to ICU. Dr. Fraser was consulted, patient underwent colonoscopy on June 18, 2020 which showed circumferential mass involving mid transverse colon beyond which colonoscopy could not be passed, multiple biopsies were obtained and next day on June 19, 2020 patient underwent left hemicolectomy and final pathology report showed poorly differentiated carcinoma favor: Primary with vascular invasion and tumor focally infiltrating through muscularis propria into pericolonic fat. With clear margins and 0 out of 13 lymph nodes shows no metastatic disease. No macro tumor perforation seen lymphovascular invasion was present, perineural invasion not identified e.g. T3, N0 immunohistochemistry positive for CDX2 and negative for synaptophysin, chromogranin, CD56, neuron-specific enolase. Ki-67 was 60 to 80% positive. There was a comment from pathology while a primary tumor of colon is favored but other lesions cannot be totally excluded Patient tolerated procedure well and has recovered well. Patient denies any history of alcohol use but used to smoke quit smoking many years ago. Denies any fever chills denies any nausea or vomiting denies any diarrhea or constipation, appetite is good, no abdominal pain Past Medical History: Ms. Cramer's medical history consists of arthritis, chronic obstructive pulmonary disease, and hypertension. Past Surgical History: Ms. Cramer's surgical/procedural history consists of cholecystectomy, hysterectomy, and left hemicolectomy. Medications: There is no information available for Current Medications - Patient. Allergies: No Known Allergies. Social History: Ms. Cramer is . Ms. Cramer no longer smokes but had smoked for 29 years. She has no history of drinking. Family History: There is no documented family history. Review Of Symptoms: Review of Systems is not available for this patient. Vital Signs: Most recent vitals are not available for this patient. Performance Status: 2 - Ambulatory/capable of all self-care, unable to perform any work activities. Up and about more than 50% of waking hours. (ECOG) Physical Examination: ENMT - No mouth sores, no thrush, no jaundice, Respiratory - Poor air entry otherwise clear, Cardiovascular - Regular rate and rhythm of heart, Abdomen - Soft, bowel sounds present, Well-healed midline surgical scar, Extremities - No visible edema or rash. Lab/Imaging: Most recent lab results are not available for this patient. 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 T3, N0 Ki-67 60 to 80%, immunohistochemistry positive for CDX2, negative for synaptophysin, chromogranin, CD56 CT scan of chest abdomen pelvis done on June 30, 2020 showed no abnormality in the liver, there is a moderate amount of some internal complexity in the abdomen the amount of fluid in the abdomen has increased when compared with the previous scan done on June 16, 2020 pelvic fluid collection remained stable, bilateral pleural effusion, stable appearance of the distal thoracic aortic aneurysm History of COPD History of arthritis History of hypertension Plan: Discussed with patient regarding her disease status and further treatment options, there was a concern about pathology report we are pathologist mentioned, although colon as a primary is favored but other lesions cannot be totally excluded, if it is a colon cancer, she has stage II disease e.g. lymph node negative but high risk being presented with obstruction at the time of diagnosis and lymphovascular involvement, poorly differentiated, Ki-67 is also elevated at 60 to 80% with ?significance At this point, we will discuss with pathology regarding confirmation whether to see primary colon cancer or metastatic lesion Considering patient's age and overall performance status, patient is reluctant to consider any kind of adjuvant therapy if in case offered. But patient was assured, that we will discuss with pathology to confirm the primary and colon is confirmed then will check MSI/MMR status if it shows mismatch, which is favorable in that case we may observe her again knowing the unfavorable features. On the other hand, primary is entertained then will plan accordingly. She will return to clinic in 1 month with CBC CMP and CEA level Signed By: Juanpablo Deras M.D. <<Signature on File>>
[2020-08-13 14:54] LABS: Miscellaneous Test See Scanned Lab Rpt
== END 2020-08-06 10:15 | disposition home or self-care (01) ==
PROVIDERS: PCP Family Medicine; Visit Provider Internal Medicine Hematology & Oncology
DX: C80.1 Malignant (primary) neoplasm, unspecified (principal); K63.9 Disease of intestine, unspecified; I71.2 Thoracic aortic aneurysm, without rupture; J44.9 Chronic obstructive pulmonary disease, unspecified; M19.90 Unspecified osteoarthritis, unspecified site; I10 Essential (primary) hypertension; Z87.891 Personal history of nicotine dependence
CPT/HCPCS: 81301; 99204

== ENCOUNTER 2020-09-12 10:59 | Outpatient (CLI) | payer MEDICARE, MEDICAID, SELFPAY ==
[2020-09-12 12:17] LABS: Basophils # 0.1 10^3/uL (0.0-0.1); Basophils % 0.7 %; Eosinophils # 0.2 10^3/uL (0.0-0.8); Eosinophils % 2.6 %; Hematocrit 39.5 % (37.0-47.0); Hemoglobin 12.2 g/dL (11.5-15.3); Lymphocytes # 1.1 10^3/uL (0.8-4.8); Lymphocytes % 12.6 %; Mean Corpuscular HGB Conc 30.9 g/dL (30.0-36.0); Mean Corpuscular Hemoglobin 27.3 pg (28.0-34.0); Mean Corpuscular Volume 88.4 fL (81-99); Mean Platelet Volume 10.7 fL (7.4-10.4); Monocytes # 0.7 10^3/uL (0.2-0.9); Monocytes % 7.8 %; Neutrophils # 6.59 10^3/uL (1.8-7.7); Nucleated Red Blood Cells % 0 %; Platelet Count 188 10^3/cmm (130-400); Red Blood Count 4.47 10^6/uL (4.1-5.3); White Blood Count 8.7 10^3/uL (4.0-10.0)
[2020-09-12 12:56] LABS: Carcinoembryonic Antigen 38.3 ng/mL (0.0-4.7)
[2020-09-12 13:10] LABS: Alanine Aminotransferase 8 U/L (0-33); Albumin Level 3.6 g/dL (3.5-5.2); Alkaline Phosphatase 74 IU/L (35-105); Aspartate Amino Transferase 18 U/L (0-32); Blood Urea Nitrogen 14 mg/dL (8-23); Calcium 9.6 mg/dL (8.5-10.5); Carbon Dioxide 27 mmol/L (22-29); Chloride 103 mmol/L (98-107); Globulin 3.6 g/dL (1.3-4.6); Glucose 96 mg/dL (65-115); Osmolality Calculated 292 mOsm/kg (285-295); Sodium 141 mmol/L (136-145); Total Bilirubin 0.3 mg/dL (0.15-1.2); Total Protein 7.2 g/dL (6.6-8.7)
--- NOTE | 2020-09-12 14:10 | ONC FU_ITS ---
Dr. Deras follow up note Patient: Chastity Cramer Unit #: [id number]: 1940 Dicatated By: Juanpablo Deras M.D.Date of Visit:Sep 12, 2020 Onc Med Follow-up/Prog Note History of Present Illness: Ms. Chastity Cramer, is a 80-year-old female with a history of COPD, arthritis, hypertension, on June 16, 2020 she presented to [facility] with a 2-day history of progressive abdominal pain which was sharp and diffuse in nature, and constipation over 5 days. No nausea or vomiting, no fever chills, underwent CT scan of abdomen which showed colon mass with possible perforation versus abscess, her white blood count was also elevated so she was started on vancomycin and Zosyn and patient was admitted to ICU. Dr. Fraser was consulted, patient underwent colonoscopy on June 18, 2020 which showed circumferential mass involving mid transverse colon beyond which colonoscopy could not be passed, multiple biopsies were obtained and next day on June 19, 2020 patient underwent left hemicolectomy and final pathology report showed poorly differentiated carcinoma favor: Primary with vascular invasion and tumor focally infiltrating through muscularis propria into pericolonic fat. With clear margins and 0 out of 13 lymph nodes shows no metastatic disease. No macro tumor perforation seen lymphovascular invasion was present, perineural invasion not identified e.g. T3, N0 immunohistochemistry positive for CDX2 and negative for synaptophysin, chromogranin, CD56, neuron-specific enolase. Ki-67 was 60 to 80% positive. There was a comment from pathology while a primary tumor of colon is favored but other lesions cannot be totally excluded, MSI MMR intact Patient tolerated procedure well and has recovered well. Patient denies any history of alcohol use but used to smoke quit smoking many years ago. Denies any fever chills denies any nausea or vomiting denies any diarrhea or constipation, appetite is good, no abdominal pain Came for follow-up, denies any specific complaint except off and on abdominal pain but no melena or hematochezia, no hemoptysis or hematemesis, no jaundice, no dysuria, no fever chills, appetite is reasonable Medications: There is no information available for Current Medications - Patient. Allergies: No Known Allergies. Review of Systems: Review of Systems is not available for this patient. Vital Signs: Performed on Sep 12, 2020 13:30 Weight - 121.8 lbs (HIGH) BSA - 0.00 sq.m BMI - 0.00 Temperature - 96.8 F (LOW) Pulse - 70 /min Respiration - 18 /min BP - 131/61 mm(hg) O2 Sat - 97 % Pain - 0 Fatigue - 0 Performance Status: 1 - No physically strenuous activity, but ambulatory and able to carry out light or sedentary work (e.g. office work, light house work). (ECOG) Physical Examination: ENMT - No mouth sores, no thrush, no jaundice, Respiratory - Lungs are clear to auscultation, Cardiovascular - Regular rate and rhythm of heart, Abdomen - Soft, bowel sounds present, no focal tenderness or mass palpable, Extremities - No visible edema. Lab/Imaging: Most recent lab results are not available for this patient. 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 T3, N0 Ki-67 60 to 80%, immunohistochemistry positive for CDX2, negative for synaptophysin, chromogranin, CD56 CT scan of chest abdomen pelvis done on June 30, 2020 showed no abnormality in the liver, there is a moderate amount of some internal complexity in the abdomen the amount of fluid in the abdomen has increased when compared with the previous scan done on June 16, 2020 pelvic fluid collection remained stable, bilateral pleural effusion, stable appearance of the distal thoracic aortic aneurysm History of COPD History of arthritis History of hypertension Plan: Discussed with patient regarding her labs white blood count 8.7 hemoglobin 12.2 hematocrit 39.5 platelets 188,000 CEA 38.3 Clinically, patient is doing well with no new signs symptom suggestive of recurrence of disease but concern is off and on mild abdominal pain with CEA being 38.3, concern is recurrence as patient was high risk for recurrence, although it was stage II disease but unfavorable features like near obstructive lesion, lymphovascular invasion present, poorly differentiated carcinoma, patient was offered adjuvant therapy but patient declined at other prefer observation. At this point, will consider CT PET scan to rule out recurrence of disease and then she will return to clinic after CT PET scan for further discussion Signed By: Juanpablo Dersa M.D. <<Signature on File>>
== END 2020-09-12 11:00 | disposition home or self-care (01) ==
LOC: ONCMED 11:03
PROVIDERS: PCP Family Medicine; Visit Provider Internal Medicine Hematology & Oncology
DX: C18.4 Malignant neoplasm of transverse colon (principal); R10.9 Unspecified abdominal pain; J44.9 Chronic obstructive pulmonary disease, unspecified; I11.0 Hypertensive heart disease with heart failure; M19.90 Unspecified osteoarthritis, unspecified site; Z90.49 Acquired absence of other specified parts of digestive tract
CPT/HCPCS: 80053; 82378; 85025; 99214

== ENCOUNTER 2020-10-04 09:04 | Outpatient (CLI) | payer MEDICARE, MEDICAID, SELFPAY ==
[2020-10-04 10:48] LABS: Carcinoembryonic Antigen 53.7 ng/mL (0.0-4.7)
--- NOTE | 2020-10-04 16:29 | ONC FU_ITS ---
Dr. Deras follow up note Patient: Chastity Cramer Unit #: [id number]: 1940 Dicatated By: Juanpablo Deras M.D.Date of Visit:Oct 04, 2020 Onc Med Follow-up/Prog Note History of Present Illness: Ms. Chastity Cramer, is a 80-year-old female with a history of COPD, arthritis, hypertension, on June 16, 2020 she presented to [facility] with a 2-day history of progressive abdominal pain which was sharp and diffuse in nature, and constipation over 5 days. No nausea or vomiting, no fever chills, underwent CT scan of abdomen which showed colon mass with possible perforation versus abscess, her white blood count was also elevated so she was started on vancomycin and Zosyn and patient was admitted to ICU. Dr. Fraser was consulted, patient underwent colonoscopy on June 18, 2020 which showed circumferential mass involving mid transverse colon beyond which colonoscopy could not be passed, multiple biopsies were obtained and next day on June 19, 2020 patient underwent left hemicolectomy and final pathology report showed poorly differentiated carcinoma favor: Primary with vascular invasion and tumor focally infiltrating through muscularis propria into pericolonic fat. With clear margins and 0 out of 13 lymph nodes shows no metastatic disease. No macro tumor perforation seen lymphovascular invasion was present, perineural invasion not identified e.g. T3, N0 immunohistochemistry positive for CDX2 and negative for synaptophysin, chromogranin, CD56, neuron-specific enolase. Ki-67 was 60 to 80% positive. There was a comment from pathology while a primary tumor of colon is favored but other lesions cannot be totally excluded, MSI MMR intact Patient tolerated procedure well and has recovered well. Patient denies any history of alcohol use but used to smoke quit smoking many years ago. Denies any fever chills denies any nausea or vomiting denies any diarrhea or constipation, appetite is good, no abdominal pain Because of postsurgical elevated CEA and being high risk stage II colon cancer, CT PET scan was ordered which was done on September 25, 2020 and it showed postsurgical changes from prior colon surgery. Nodular uptake deep to the ventral abdominal wall incision adjacent to the transverse colon bilateral hilar and mediastinal lymphadenopathy concerning for metastatic disease but no hypermetabolic pulmonary masses. Multifocal FDG avid liver lesions and portacaval lymph node concerning for metastatic disease. Hypermetabolic activity adjacent to the left 11th rib, additional hypermetabolic activity adjacent to the left 10th rib versus spleen versus splenic flexure concerning for metastatic disease. And descending thoracic aorta aneurysm size 7.2 x 8.5 compared to 8 cm in June 2020 Came for follow-up, denies any specific complaint except generalized weakness or fatigue but no nausea or vomiting no diarrhea or constipation, no abdominal pain, no jaundice, no melena or hematochezia, no hemoptysis or hematemesis, no dysphagia, no chest pain Medications: There is no information available for Current Medications - Patient. Allergies: No Known Allergies. Review of Systems: Review of Systems is not available for this patient. Vital Signs: Performed on Oct 04, 2020 11:39 Weight - 124 lbs (HIGH) BSA - 0.00 sq.m BMI - 0.00 Temperature - 97.3 F (LOW) Pulse - 63 /min Respiration - 18 /min BP - 140/65 mm(hg) O2 Sat - 98 % Pain - 0 Fatigue - 10 Performance Status: 2 - Ambulatory/capable of all self-care, unable to perform any work activities. Up and about more than 50% of waking hours. (ECOG) Physical Examination: ENMT - No mouth sores, no thrush, no jaundice, Abdomen - Soft, bowel sounds present, Chest, clear to auscultation, heart S1-S2, Extremities - No visible deformities, no cyanosis, clubbing or edema. Pulses 4+ and equal bilaterally. Lab/Imaging: Most recent lab results are not available for this patient. 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 T3, N0 Ki-67 60 to 80%, immunohistochemistry positive for CDX2, negative for synaptophysin, chromogranin, CD56 CT scan of chest abdomen pelvis done on June 30, 2020 showed no abnormality in the liver, there is a moderate amount of some internal complexity in the abdomen the amount of fluid in the abdomen has increased when compared with the previous scan done on June 16, 2020 pelvic fluid collection remained stable, bilateral pleural effusion, stable appearance of the distal thoracic aortic aneurysm History of COPD History of arthritis History of hypertension Plan: Discussed with patient regarding her CT PET scan findings which shows extensive metastatic disease and her repeat CEA gone up to 53.7 from 38.3 earlier on September 12, 2020 Clinically, fortunately patient is not symptomatic per her CT PET scan shows extensive metastatic disease, involving mediastinum, liver and intra-abdominal lesion and her follow-up tumor marker CEA has gone up further to 53.7 from 38.3 within 3 weeks. Earlier patient was offered adjuvant chemotherapy for being high risk stage II disease but patient declined again patient was informed based on her CT PET scan and tumor marker it appears she has metastatic colon cancer with extensive liver involvement and bilateral mediastinal involvement and multiple intra-abdominal lesions, other concern is her large descending aorta aneurysm, for which as per family, patient has seen cardiothoracic surgery during her last admission to the hospital at that time observation was planned. Considering her age and overall performance status and thoracic descending aorta aneurysm and now with extensive metastatic disease, her prognosis is guarded treatment options including hospice care was discussed or single agent oral Xeloda, patient opted for oral Xeloda, if not tolerated she will consider hospice care. At this point, considering her age and performance status we will modify her oral Xeloda dose to minimize risk of toxicity and we will give her prescription for oral Xeloda 850 mg/m??? twice daily for 2 weeks on 1 week off. And then repeat the cycle, all the side effect possible benefits associated with oral Xeloda including but not limited to bone marrow suppression, mouth sores, hand-foot syndrome, skin rash, jaundice, diarrhea, hair loss was mentioned further teaching done by chemotherapy nurse, will obtain approval from her insurance prior to the treatment and patient return to clinic 1 week after initiating oral Xeloda with CBC and CMP Signed By: Juanpablo Deras M.D. <<Signature on File>>
== END 2020-10-04 09:05 | disposition home or self-care (01) ==
LOC: ONCMED 09:07
PROVIDERS: PCP Family Medicine; Visit Provider Internal Medicine Hematology & Oncology
DX: C18.4 Malignant neoplasm of transverse colon (principal); C78.7 Secondary malignant neoplasm of liver and intrahepatic bile duct; C78.1 Secondary malignant neoplasm of mediastinum; R97.0 Elevated carcinoembryonic antigen [CEA]; I71.2 Thoracic aortic aneurysm, without rupture; Z90.49 Acquired absence of other specified parts of digestive tract; Z79.899 Other long term (current) drug therapy
CPT/HCPCS: 36415; 82378; 99215

== ENCOUNTER 2020-11-22 12:27 | Outpatient (CLI) | payer MEDICARE, MEDICAID, SELFPAY ==
[2020-11-22 13:22] LABS: Basophils # 0.1 10^3/uL (0.0-0.1); Basophils % 0.7 %; Eosinophils # 0.1 10^3/uL (0.0-0.8); Eosinophils % 1.4 %; Hematocrit 40.6 % (37.0-47.0); Hemoglobin 12.8 g/dL (11.5-15.3); Lymphocytes # 0.9 10^3/uL (0.8-4.8); Mean Corpuscular HGB Conc 31.5 g/dL (30.0-36.0); Mean Corpuscular Hemoglobin 27.2 pg (28.0-34.0); Mean Corpuscular Volume 86.2 fL (81-99); Mean Platelet Volume 10.3 fL (7.4-10.4); Monocytes # 0.6 10^3/uL (0.2-0.9); Monocytes % 7.4 %; Neutrophils # 6.68 10^3/uL (1.8-7.7); Neutrophils % 79.3 %; Nucleated Red Blood Cells % 0 %; Platelet Count 230 10^3/cmm (130-400); Red Blood Count 4.71 10^6/uL (4.1-5.3); Red Cell Distribution Width 15.8 % (12.1-15.1); White Blood Count 8.4 10^3/uL (4.0-10.0)
[2020-11-22 13:48] LABS: Carcinoembryonic Antigen 99.2 ng/mL (0.0-4.7)
[2020-11-22 14:00] LABS: Alanine Aminotransferase 15 U/L (0-33); Alkaline Phosphatase 84 IU/L (35-105); Anion Gap 13.9 (5-19); Aspartate Amino Transferase 20 U/L (0-32); Blood Urea Nitrogen 19 mg/dL (8-23); Carbon Dioxide 28 mmol/L (22-29); Chloride 102 mmol/L (98-107); Globulin 3.1 g/dL (1.3-4.6); Glucose 91 mg/dL (65-115); Osmolality Calculated 292 mOsm/kg (285-295); Potassium 3.9 mmol/L (3.5-5.1); Sodium 140 mmol/L (136-145); Total Bilirubin 0.3 mg/dL (0.15-1.2); Total Protein 7.1 g/dL (6.6-8.7)
--- NOTE | 2020-11-22 17:57 | ONC FU_ITS ---
Dr. Deras follow up note Patient: Chastity Cramer Unit #: [id number]: 1940 Dicatated By: Juanpablo Deras M.D.Date of Visit:November 22, 2020 Onc Med Follow-up/Prog Note History of Present Illness: Ms. Chastity Cramer, is a 80-year-old female with a history of COPD, arthritis, hypertension, on June 16, 2020 she presented to [facility] with a 2-day history of progressive abdominal pain which was sharp and diffuse in nature, and constipation over 5 days. No nausea or vomiting, no fever chills, underwent CT scan of abdomen which showed colon mass with possible perforation versus abscess, her white blood count was also elevated so she was started on vancomycin and Zosyn and patient was admitted to ICU. Dr. Fraser was consulted, patient underwent colonoscopy on June 18, 2020 which showed circumferential mass involving mid transverse colon beyond which colonoscopy could not be passed, multiple biopsies were obtained and next day on June 19, 2020 patient underwent left hemicolectomy and final pathology report showed poorly differentiated carcinoma favor: Primary with vascular invasion and tumor focally infiltrating through muscularis propria into pericolonic fat. With clear margins and 0 out of 13 lymph nodes shows no metastatic disease. No macro tumor perforation seen lymphovascular invasion was present, perineural invasion not identified e.g. T3, N0 immunohistochemistry positive for CDX2 and negative for synaptophysin, chromogranin, CD56, neuron-specific enolase. Ki-67 was 60 to 80% positive. There was a comment from pathology while a primary tumor of colon is favored but other lesions cannot be totally excluded, MSI MMR intact Patient tolerated procedure well and has recovered well. Patient denies any history of alcohol use but used to smoke quit smoking many years ago. Denies any fever chills denies any nausea or vomiting denies any diarrhea or constipation, appetite is good, no abdominal pain Because of postsurgical elevated CEA and being high risk stage II colon cancer, CT PET scan was ordered which was done on September 25, 2020 and it showed postsurgical changes from prior colon surgery. Nodular uptake deep to the ventral abdominal wall incision adjacent to the transverse colon bilateral hilar and mediastinal lymphadenopathy concerning for metastatic disease but no hypermetabolic pulmonary masses. Multifocal FDG avid liver lesions and portacaval lymph node concerning for metastatic disease. Hypermetabolic activity adjacent to the left 11th rib, additional hypermetabolic activity adjacent to the left 10th rib versus spleen versus splenic flexure concerning for metastatic disease. And descending thoracic aorta aneurysm size 7.2 x 8.5 compared to 8 cm in June 2020 Came for follow-up, denies any specific complaints, no fever chills, no nausea or vomiting, no diarrhea constipation, no abdominal pain, no melena or hematochezia, no hemoptysis or hematemesis, no jaundice, patient was prescribed oral Xeloda for metastatic colon cancer, initially patient agreed then her daughter called and canceled chemotherapy teaching and decided not to take oral Xeloda because of related side effect. And nurse was informed that they may consider hospice but then again changed their mind and now here for further discussion Medications: Ascorbic Acid 1 (250 mg) Tablet, chewable Oral daily, Cholecalciferol 1 (250 mcg ) Tablet Oral daily, Metoprolol Succinate ER 1 (150 mg) Tablet SR 24 HR Oral daily, Protonix 1 Tablet (of 40 mg) Tablet, enteric coated Oral daily Allergies: No Known Allergies. Review of Systems: Review of Systems is not available for this patient. Vital Signs: Performed on November 22, 2020 14:32 Height - 62.00 in Weight - 126.4 lbs (HIGH) BSA - 1.57 sq.m BMI - 23.12 Temperature - 97.2 F (LOW) Pulse - 62 /min Respiration - 18 /min BP - 130/74 mm(hg) O2 Sat - 96 % Pain - 0 Fatigue - 5 Performance Status: 1 - No physically strenuous activity, but ambulatory and able to carry out light or sedentary work (e.g. office work, light house work). (ECOG) Physical Examination: ENMT - No mouth sores, no thrush, no jaundice, Respiratory - Lungs are clear to auscultation, Cardiovascular - Regular rate and rhythm of heart, Abdomen - Soft, bowel sounds present, Extremities - No visible edema. Lab/Imaging: Most recent lab results are not available for this patient. 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 T3, N0 Ki-67 60 to 80%, immunohistochemistry positive for CDX2, negative for synaptophysin, chromogranin, CD56 CT scan of chest abdomen pelvis done on June 30, 2020 showed no abnormality in the liver, there is a moderate amount of some internal complexity in the abdomen the amount of fluid in the abdomen has increased when compared with the previous scan done on June 16, 2020 pelvic fluid collection remained stable, bilateral pleural effusion, stable appearance of the distal thoracic aortic aneurysm History of COPD History of arthritis History of hypertension Plan: Discussed with patient regarding her labs white blood count 8.4 hemoglobin 12.8 hematocrit 40.6 platelets 230,000 CMP within normal limits CEA at 99.2 compared to 53.7 on October 04, 2020 and 38.3 on September 12, 2020 Clinically, patient doing well with no new signs symptoms but her follow-up labs shows PSA continue to go up and now 99.2 compared to 38.3 on September 12, 2020, during her last visit patient agreed for palliative therapy with oral Xeloda but then they change her mind and canceled the chemotherapy teaching and now, knowing her CEA level is going up, she would consider oral Xeloda again crying all the side effect possible benefits associate with oral Xeloda were discussed with again, further teaching done by chemotherapy nurse, based on her performance status and overall condition, will consider modified dose oral Xeloda 850 mg per metered squared twice a day 2 weeks on 1 week off. And patient return to clinic 1 week after oral Xeloda initiated with CBC CMP Signed By: Juanpablo Deras M.D. <<Signature on File>>
== END 2020-11-22 12:28 | disposition home or self-care (01) ==
LOC: ONCMED 12:31
PROVIDERS: PCP Family Medicine; Visit Provider Internal Medicine Hematology & Oncology
DX: C18.4 Malignant neoplasm of transverse colon (principal); J90 Pleural effusion, not elsewhere classified; J44.9 Chronic obstructive pulmonary disease, unspecified; M19.90 Unspecified osteoarthritis, unspecified site; I10 Essential (primary) hypertension; Z79.899 Other long term (current) drug therapy
CPT/HCPCS: 36415; 80053; 82378; 85025; 99214

== ENCOUNTER 2020-12-11 10:51 | Outpatient (CLI) | payer MEDICARE, MEDICAID, SELFPAY ==
--- NOTE | 2020-12-30 20:18 | ONC FU_ITS ---
[facility] Patient Note Patient: Chastity Cramer Unit #: [id number]: [id number] Dictated By: Mendy LandryDate of Visit: Dec 11, 2020 Onc MED Follow-Up/Prog Note Chief Complaint: Poorly differentiated carcinoma involving left colon Status post left hemicolectomy History of Present Illness: Ms. Cramer is an 80-year-old female with a history of COPD, arthritis and hypertension. On June 16, 2020, she presented to [facility] with a 2-day history of progressive abdominal pain which was sharp and diffuse in nature. She had also had constipation over 5 days. She had not had nausea or vomiting or fever/chills. She underwent CT scan of abdomen which showed colon mass with possible perforation versus abscess. Her white blood count was also elevated so she was started on vancomycin and Zosyn. She was admitted to ICU. Dr. Fraser was consulted and Ms Cramer underwent colonoscopy on June 18, 2020. It showed circumferential mass involving mid transverse colon beyond which colonoscopy could not be passed. Multiple biopsies were obtained. On June 19, 2020, patient underwent left hemicolectomy. The final pathology report showed poorly differentiated carcinoma favor: Primary with vascular invasion and tumor focally infiltrating through muscularis propria into pericolonic fat. With clear margins and 0 out of 13 lymph nodes showed no metastatic disease. No macro tumor perforation seen lymphovascular invasion was present, perineural invasion not identified. e.g. T3, N0 immunohistochemistry positive for CDX2 and negative for synaptophysin, chromogranin, CD56, neuron-specific enolase. Ki-67 was 60 to 80% positive. There was a comment from pathology while a primary tumor of colon is favored but other lesions cannot be totally excluded, MSI MMR intact Patient tolerated procedure well and has recovered well. Patient denies any history of alcohol use but used to smoke quit smoking many years ago. Denies any fever chills denies any nausea or vomiting denies any diarrhea or constipation, appetite is good, no abdominal pain Because of postsurgical elevated CEA and being high risk stage II colon cancer, a PET/CT scan was ordered. It was obtained on September 25, 2020. It showed postsurgical changes from prior colon surgery. Nodular uptake deep to the ventral abdominal wall incision adjacent to the transverse colon, bilateral hilar and mediastinal lymphadenopathy concerning for metastatic disease but no hypermetabolic pulmonary masses. Multifocal FDG avid liver lesions and portacaval lymph node concerning for metastatic disease. Hypermetabolic activity adjacent to the left 11th rib, additional hypermetabolic activity adjacent to the left 10th rib versus spleen versus splenic flexure concerning for metastatic disease. The descending thoracic aorta aneurysm size 7.2 x 8.5 compared to 8 cm in June 2020. Ms. Cramer was seen her sitting and encouraged to pursue palliative chemotherapy with Xeloda. However at the time the daughter called and canceled the chemotherapy education session because Mrs. Cramer decided not to take the Xeloda due to related side effect concerns. At that point they were offered hospice referral but then presented back to Dr. Deras on November 22, 2020 for further discussion of her disease and treatment. Her CEA had continued to rise and on November 22, 2020 was 99.2 compared to 38.3 on September 12, 2020. Again Dr. Deras offered oral chemotherapy with Xeloda and 50 mg per metered squared twice daily days 1 through 14 and 7 days off. Mrs. Cramer has agreed to a trial of the Xeloda at this time. She is here today for chemotherapy education and discussion of her plan of care. She has no new concerns today. She denies any fever or chills. She has had no further episodes of severe constipation. She states her bowels are normal for her as her new normal since surgery . She denies any mouth sores, sore throat or difficulty swallowing. She denies any rash. She states her appetite is good her energy is marginal but she is able to do all her ADLs without any assistance. She denies any orthopnea, shortness of breath or lower extremity edema. Her ECOG is 1. Past Medical History: Arthritis Chronic obstructive pulmonary disease Hypertension Past Surgical History: Cholecystectomy Hysterectomy Left hemicolectomy Allergies: No Known Allergies. Medications: Ascorbic Acid 1 (250 mg) Tablet, chewable Oral daily Cholecalciferol 1 (250 mcg ) Tablet Oral daily Metoprolol Succinate ER 1 (150 mg) Tablet SR 24 HR Oral daily Protonix 1 Tablet (of 40 mg) Tablet, enteric coated Oral daily Xeloda 2 Tablet (of 150 mg) Oral b.i.d. Xeloda 2 Tablet (of 500 mg) Oral b.i.d. Family History: Social History: Ms. Cramer is . Ms. Cramer no longer smokes but had smoked for 29 years. She has no history of drinking. Review Of Symptoms: <See Above> Vital Signs: Performed on Dec 11, 2020 12:10 Height - 62.00 in Weight - 123.6 lbs (LOW) BSA - 1.56 sq.m BMI - 22.61 Temperature - 97.6 F (LOW) Pulse - 67 /min Respiration - 18 /min BP - 164/72 mm(hg) (HIGH) O2 Sat - 98 % Pain - 0,1 - No physically strenuous activity, but ambulatory and able to carry out light or sedentary work (e.g. office work, light house work). (ECOG) Physical Examination: Constitutional Alert, oriented, no acute distress. Skin pink, warm and dry. Head Normocephalic; atraumatic. Eyes Conjunctivae and sclerae are clear and without icterus. Pupils are reactive and equal. Neck Supple without masses or thyromegaly. No jugular venous distension. Hematologic/Lymphatic No petechiae or purpura. No tender or palpable lymph nodes in the cervical or supraclavicular areas. Respiratory Lungs are clear to auscultation without rhonchi or wheezing. Cardiovascular Regular rate and rhythm of heart without murmurs,clicks, gallops or rubs. Back/Spine Non-tender to palpation. Extremities No visible deformities, no cyanosis, clubbing or edema. Musculoskeletal No tenderness or swelling, normal range of motion without obvious weakness. Integumentary No rashes or lesions. Neurologic No sensory or motor deficits, normal cerebellar function, normal gait. Psychiatric Alert and oriented times three. Coherent speech. Verbalizes understanding of our discussions today. Laboratory:Reviewed from November 22, 2020 Impression: Metastatic disease per CT PET scan with progressive CEA, 53.7 on October 05, 2019 consistent with metastatic colon cancer, Status post , Poorly differentiated carcinoma involving transverse colon status post left hemicolectomy done on June 19, 2020 for obstructive lesion, final pathology report confirmed clear margins, lymphovascular invasion seen, 0 out of 13 lymph node positive for metastatic disease e.g. T3, N0 Ki-67 60 to 80%, immunohistochemistry positive for CDX2, negative for synaptophysin, chromogranin, CD56 CT scan of chest abdomen pelvis done on June 30, 2020 showed no abnormality in the liver, there is a moderate amount of some internal complexity in the abdomen the amount of fluid in the abdomen has increased when compared with the previous scan done on June 16, 2020 pelvic fluid collection remained stable, bilateral pleural effusion, stable appearance of the distal thoracic aortic aneurysm History of COPD History of arthritis History of hypertension Plan/Problems Addressed at this Visit: 1. 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 She will pursue Xeloda (capecitabine) 1300 mg twice daily for 14 days and 7 days off. B. She may utilize Compazine, ondansetron and/or lorazepam as needed for antiemetics at home. C. We did review her labs from November 22, 2020 which revealed a CBC to include a white count of 8.4, hemoglobin 12.8, platelets 230,000 ANC is 6680. Potassium 3.9 creatinine 122 random glucose was 91 LFTs were normal and as noted above her CEA at that time was 99.2. 2. Chemotherapy teaching A. The patient and family were informed of chemotherapy plan and specific drugs were discussed. We also discussed how chemotherapy works and identified common side effects including alopecia; myelosuppression-including neutropenia, anemia, thrombocytopenia; peripheral neuropathy; fatigue; nausea; diarrhea; constipation; bleeding or bruising; skin changes; mouth sores; drug hypersensitivity/allergic reactions or anaphylaxis and extravasation. They have also been informed how to contact the clinic with side effects or symptoms, including but not limited to fever greater than 100.4???, chills, sore throat, bleeding or bruising that is not explained or mouth sores, cough, nasal discharge, diarrhea, constipation, nausea and/or vomiting not relieved with medications on hand at home, as well as any other concern or question they may have. Our hours are 8:00 a.m. to 4:30 p.m. on Thursday through and 8-12:00 on Thursday. However, someone is nuclear monitoring technician 24 hours per day and they have been advised to contact the [facility] at if it is after hours. We have also discussed potential long-term side effects of chemotherapy including secondary cancers, infertility, pulmonary complications, cardiac complications, and again peripheral neuropathy. We have discussed that they certainly need to let us know before taking any antioxidants or herbal or further dietary supplements, as we are unsure of how these agents react with chemotherapy and we request that they avoid these products for now. They were informed that it is okay to take multivitamins at normal doses. They verbally state that they understand to take all medications as directed by their healthcare provider unless otherwise indicated. They also verbalized understanding to leave the pressure dressing on the intravenous administration site for at least two hours after treatment. Instructions for oral care with baking soda and salt water rinses as well as a guide for use of [id number] medication were provided with the treatment plan. They have been given a written patient treatment plan, of which a copy is in the chart, as well as specific drug information. They have no questions and verbalized understanding and are willing to proceed with chemotherapy at this time. 3. Follow-up plan A. We will plan to have her return to the clinic in 1 week with CBC CMP for follow-up of her first week of capecitabine. B. Ms. Cramer has been instructed to contact us in interim should questions or problems arise. Total time spent on Ms. Cramer's care today including review of records prior to visit; discussion and education on treatment plan; side effect identification and management; follow-up plans and post visit documentation was 65 minutes. Signed By: Mendy Landry-, AOCNP Juanpablo Deras MD <<Signature on File>>
== END 2020-12-11 10:52 | disposition home or self-care (01) ==
LOC: ONCMED 10:53
PROVIDERS: PCP Family Medicine; Visit Provider Nurse Practitioner
DX: C78.5 Secondary malignant neoplasm of large intestine and rectum (principal); J44.9 Chronic obstructive pulmonary disease, unspecified; I10 Essential (primary) hypertension; M19.90 Unspecified osteoarthritis, unspecified site; Z79.899 Other long term (current) drug therapy
CPT/HCPCS: 99215

== ENCOUNTER 2020-12-18 06:10 | Outpatient (CLI) | payer MEDICARE, MEDICAID, SELFPAY ==
[2020-12-18 13:48] LABS: Basophils # 0.1 10^3/uL (0.0-0.1); Basophils % 0.7 %; Eosinophils # 0.3 10^3/uL (0.0-0.8); Eosinophils % 2.4 %; Hematocrit 39.9 % (37.0-47.0); Hemoglobin 12.6 g/dL (11.5-15.3); Lymphocytes # 1.2 10^3/uL (0.8-4.8); Lymphocytes % 11.1 %; Mean Corpuscular HGB Conc 31.6 g/dL (30.0-36.0); Mean Corpuscular Hemoglobin 26.9 pg (28.0-34.0); Mean Corpuscular Volume 85.1 fL (81-99); Mean Platelet Volume 10.1 fL (7.4-10.4); Monocytes # 0.8 10^3/uL (0.2-0.9); Monocytes % 7.7 %; Neutrophils # 8.24 10^3/uL (1.8-7.7); Neutrophils % 77.6 %; Nucleated Red Blood Cells % 0 %; Platelet Count 264 10^3/cmm (130-400); Red Blood Count 4.69 10^6/uL (4.1-5.3); Red Cell Distribution Width 14.9 % (12.1-15.1); White Blood Count 10.6 10^3/uL (4.0-10.0)
[2020-12-18 14:06] LABS: Alanine Aminotransferase 8 U/L (0-33); Albumin Level 4.1 g/dL (3.5-5.2); Alkaline Phosphatase 97 IU/L (35-105); Anion Gap 14.4 (5-19); Aspartate Amino Transferase 14 U/L (0-32); Blood Urea Nitrogen 23 mg/dL (8-23); Calcium 11.4 mg/dL (8.5-10.5); Carbon Dioxide 27 mmol/L (22-29); Chloride 99 mmol/L (98-107); Globulin 2.9 g/dL (1.3-4.6); Glucose 98 mg/dL (65-115); Osmolality Calculated 286 mOsm/kg (285-295); Potassium 4.4 mmol/L (3.5-5.1); Sodium 136 mmol/L (136-145); Total Bilirubin 0.2 mg/dL (0.15-1.2)
--- NOTE | 2021-01-07 00:03 | ONC FU_ITS ---
[facility] Patient Note Patient: Chastity Cramer Unit #: [id number]: 1940 Dictated By: Mendy LandryDate of Visit: Dec 18, 2020 Onc MED Follow-Up/Prog Note Chief Complaint: Poorly differentiated carcinoma involving left colon Status post left hemicolectomy History of Present Illness: Ms. Cramer is an 80-year-old female with a history of COPD, arthritis and hypertension. On June 16, 2020, she presented to [facility] with a 2-day history of progressive abdominal pain which was sharp and diffuse in nature. She had also had constipation over 5 days. She had not had nausea or vomiting or fever/chills. She underwent CT scan of abdomen which showed colon mass with possible perforation versus abscess. Her white blood count was also elevated so she was started on vancomycin and Zosyn. She was admitted to ICU. Dr. Fraser was consulted and Ms Cramer underwent colonoscopy on June 18, 2020. It showed circumferential mass involving mid transverse colon beyond which colonoscopy could not be passed. Multiple biopsies were obtained. On June 19, 2020, patient underwent left hemicolectomy. The final pathology report showed poorly differentiated carcinoma favor: Primary with vascular invasion and tumor focally infiltrating through muscularis propria into pericolonic fat. With clear margins and 0 out of 13 lymph nodes showed no metastatic disease. No macro tumor perforation seen lymphovascular invasion was present, perineural invasion not identified. e.g. T3, N0 immunohistochemistry positive for CDX2 and negative for synaptophysin, chromogranin, CD56, neuron-specific enolase. Ki-67 was 60 to 80% positive. There was a comment from pathology while a primary tumor of colon is favored but other lesions cannot be totally excluded, MSI MMR intact Patient tolerated procedure well and has recovered well. Patient denies any history of alcohol use but used to smoke quit smoking many years ago. Denies any fever chills denies any nausea or vomiting denies any diarrhea or constipation, appetite is good, no abdominal pain Because of postsurgical elevated CEA and being high risk stage II colon cancer, a PET/CT scan was ordered. It was obtained on September 25, 2020. It showed postsurgical changes from prior colon surgery. Nodular uptake deep to the ventral abdominal wall incision adjacent to the transverse colon, bilateral hilar and mediastinal lymphadenopathy concerning for metastatic disease but no hypermetabolic pulmonary masses. Multifocal FDG avid liver lesions and portacaval lymph node concerning for metastatic disease. Hypermetabolic activity adjacent to the left 11th rib, additional hypermetabolic activity adjacent to the left 10th rib versus spleen versus splenic flexure concerning for metastatic disease. The descending thoracic aorta aneurysm size 7.2 x 8.5 compared to 8 cm in June 2020. Ms. Cramer was seen her sitting and encouraged to pursue palliative chemotherapy with Xeloda. However at the time the daughter called and canceled the chemotherapy education session because Mrs. Cramer decided not to take the Xeloda due to related side effect concerns. At that point they were offered hospice referral but then presented back to Dr. Deras on November 22, 2020 for further discussion of her disease and treatment. Her CEA had continued to rise and on November 22, 2020 was 99.2 compared to 38.3 on September 12, 2020. Again Dr. Deras offered oral chemotherapy with Xeloda and 50 mg per metered squared twice daily days 1 through 14 and 7 days off. Mrs. Cramer has agreed to a trial of the Xeloda at this time. She presented on december 11, 2020 for chemotherapy education and discussion of her plan of care. She is here today for 1 week followup. She has no new concerns today. However, she has decided NOT to pursue treatment with the Xeloda (capecitabine). She states that she read the side effects and is not willing to risk side effects at this time. She opted not to take the capecitabine. We discussed a potential trial to see how she does but she is adamant and that she does not want to pursue treatment at this time. Respectively told her that she has that right and I will not pursue further treatment at this time. She denies any fever or chills. She has had no further episodes of severe constipation. She states her bowels are normal for her as her new normal since surgery . She denies any mouth sores, sore throat or difficulty swallowing. She denies any rash. She states her appetite is good her energy is marginal but she is able to do all her ADLs without any assistance. She denies any orthopnea, shortness of breath or lower extremity edema. Her ECOG is 1. Past Medical History: Arthritis Chronic obstructive pulmonary disease Hypertension Past Surgical History: Cholecystectomy Hysterectomy Left hemicolectomy Allergies: No Known Allergies. Medications: Ascorbic Acid 1 (250 mg) Tablet, chewable Oral daily Cholecalciferol 1 (250 mcg ) Tablet Oral daily Metoprolol Succinate ER 1 (150 mg) Tablet SR 24 HR Oral daily Protonix 1 Tablet (of 40 mg) Tablet, enteric coated Oral daily Xeloda 2 Tablet (of 150 mg) Oral b.i.d. Xeloda 2 Tablet (of 500 mg) Oral b.i.d. Family History: Social History: Ms. Cramer is . Ms. Cramer no longer smokes but had smoked for 29 years. She has no history of drinking. Review Of Symptoms: <See Above> Vital Signs: Performed on Dec 18, 2020 14:55 Height - 62.00 in Temperature - 97.5 F (LOW) Pulse - 64 /min Respiration - 18 /min BP - 123/68 mm(hg) O2 Sat - 96 % Pain - 0 Fatigue - 9,1 - No physically strenuous activity, but ambulatory and able to carry out light or sedentary work (e.g. office work, light house work). (ECOG) Physical Examination: Constitutional Alert, oriented, no acute distress. Skin pink, warm and dry. Head Normocephalic; atraumatic. Eyes Conjunctivae and sclerae are clear and without icterus. Respiratory Lungs are clear to auscultation without rhonchi or wheezing. Cardiovascular Regular rate and rhythm of heart without murmurs,clicks, gallops or rubs. Back/Spine Non-tender to palpation. Extremities No visible deformities, no cyanosis, clubbing or edema. Musculoskeletal No tenderness or swelling, normal range of motion without obvious weakness. Integumentary No rashes or lesions. Psychiatric Alert and oriented times three. Coherent speech. Verbalizes understanding of our discussions today. Laboratory:Test performed on Dec 18, 2020 13:29 Sodium 136 mmol/L Potassium 4.4 mmol/L Chloride 99 mmol/L CO2 27 mmol/L Anion Gap 14.4 BUN 23 mg/dL Creatinine 1.2 mg/dL Cr Clearance (Est) 32.0900 mL/min Glucose 98 mg/dL Osmolality - Calculated 286 mOsm/kg Calcium 11.4 mg/dL Protein, Total 7.0 g/dL Albumin 4.1 g/dL Globulin 2.9 g/dL Bilirubin, Total 0.2 mg/dL ALT (SGPT) 8 U/L AST (SGOT) 14 U/L Alkaline Phosphatase 97 IU/L WBC 10.6 10 3/uL RBC 4.69 10 6/uL HGB 12.6 g/dL HCT 39.9 % MCV 85.1 fL MCH 26.9 pg MCHC 31.6 g/dL RDW 14.9 % Platelet Count 264 10 3/cmm MPV 10.1 fL Neutrophils 8.24 10 3/uL Lymphocytes 1.2 10 3/uL Monocytes 0.8 10 3/uL Eosinophils 0.3 10 3/uL Basophils 0.1 10 3/uL Neutrophil % 77.6 % Lymphocyte % 11.1 % Monocyte % 7.7 % Eosinophil % 2.4 % Basophils % 0.7 % NRBC % 0 % Impression: Metastatic disease per CT PET scan with progressive CEA, 53.7 on October 05, 2019 consistent with metastatic colon cancer, Status post , Poorly differentiated carcinoma involving transverse colon status post left hemicolectomy done on June 19, 2020 for obstructive lesion, final pathology report confirmed clear margins, lymphovascular invasion seen, 0 out of 13 lymph node positive for metastatic disease e.g. T3, N0 Ki-67 60 to 80%, immunohistochemistry positive for CDX2, negative for synaptophysin, chromogranin, CD56 CT scan of chest abdomen pelvis done on June 30, 2020 showed no abnormality in the liver, there is a moderate amount of some internal complexity in the abdomen the amount of fluid in the abdomen has increased when compared with the previous scan done on June 16, 2020 pelvic fluid collection remained stable, bilateral pleural effusion, stable appearance of the distal thoracic aortic aneurysm History of COPD History of arthritis History of hypertension Plan/Problems Addressed at this Visit: 1. 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 She has opted to NOT pursue Xeloda (capecitabine) 1300 mg twice daily for 14 days and 7 days off due to concerns of side effects. B. I did attempt to reassure her that we would monitor her closely and treat any kind of ill effects that she may have but also informed her that I respect her decision NOT to pursue treatment and this would not jeopardize her care here in the clinic. C. We did review her labs from Today. WBC 10.6, hemoglobin 12.6, platelets 264,000, ANC is 8243 potassium 4.4 random glucose 98 creatinine 1.2 LFTs are normal. Her CEA from 11/22/2020that time was 99.2. 2. Follow-up plan A. We will plan to have her come back and see Dr. Deras in 2 weeks with CBC CMP and CEA. She may discuss with him further concerns regarding treatment at that time. She was very informed on her decision not to pursue treatment at this time. She had clearly read potential side effects from the capecitabine drug information/package insert. B. Ms. Cramer has been instructed to contact us in interim should questions or problems arise. Signed By: Mendy Landry-, AOCNP Juanpablo Deras MD <<Signature on File>>
== END 2020-12-18 06:11 | disposition home or self-care (01) ==
LOC: ONCMED 06:12
PROVIDERS: PCP Family Medicine; Visit Provider Nurse Practitioner
DX: C18.4 Malignant neoplasm of transverse colon (principal)
CPT/HCPCS: 80053; 85025; 99214

== ENCOUNTER 2021-01-03 14:06 | Outpatient (RCR) | payer MEDICARE, MEDICAID, SELFPAY ==
[2021-01-03 14:48] LABS: Basophils # 0.1 10^3/uL (0.0-0.1); Eosinophils # 0.3 10^3/uL (0.0-0.8); Eosinophils % 3.6 %; Hematocrit 39.9 % (37.0-47.0); Hemoglobin 12.7 g/dL (11.5-15.3); Lymphocytes # 0.9 10^3/uL (0.8-4.8); Lymphocytes % 11.4 %; Mean Corpuscular HGB Conc 31.8 g/dL (30.0-36.0); Mean Corpuscular Hemoglobin 27.5 pg (28.0-34.0); Mean Corpuscular Volume 86.6 fL (81-99); Mean Platelet Volume 11.1 fL (7.4-10.4); Monocytes # 0.7 10^3/uL (0.2-0.9); Monocytes % 8.9 %; Neutrophils # 6.05 10^3/uL (1.8-7.7); Neutrophils % 74.7 %; Nucleated Red Blood Cells % 0 %; Platelet Count 182 10^3/cmm (130-400); Red Blood Count 4.61 10^6/uL (4.1-5.3); Red Cell Distribution Width 15.5 % (12.1-15.1); White Blood Count 8.1 10^3/uL (4.0-10.0)
[2021-01-03 15:01] LABS: Alanine Aminotransferase 10 U/L (0-33); Albumin Level 3.7 g/dL (3.5-5.2); Alkaline Phosphatase 113 IU/L (35-105); Anion Gap 13.4 (5-19); Aspartate Amino Transferase 17 U/L (0-32); Blood Urea Nitrogen 24 mg/dL (8-23); Calcium 9.1 mg/dL (8.5-10.5); Carbon Dioxide 29 mmol/L (22-29); Chloride 100 mmol/L (98-107); Globulin 3.1 g/dL (1.3-4.6); Glucose 87 mg/dL (65-115); Osmolality Calculated 289 mOsm/kg (285-295); Potassium 4.4 mmol/L (3.5-5.1); Sodium 138 mmol/L (136-145); Total Bilirubin 0.3 mg/dL (0.15-1.2); Total Protein 6.8 g/dL (6.6-8.7)
--- NOTE | 2021-01-03 17:00 | ONC FU_ITS ---
Dr. Deras follow up note Patient: Chastity Carmer Unit #: [id number]: [id number] Dicatated By: Juanpablo Deras M.D.Date of Visit:Jan 03, 2021 Onc Med Follow-up/Prog Note History of Present Illness: Ms. Cramer is an 80-year-old female with a history of COPD, arthritis and hypertension. On June 16, 2020, she presented to [facility] with a 2-day history of progressive abdominal pain which was sharp and diffuse in nature. She had also had constipation over 5 days. She had not had nausea or vomiting or fever/chills. She underwent CT scan of abdomen which showed colon mass with possible perforation versus abscess. Her white blood count was also elevated so she was started on vancomycin and Zosyn. She was admitted to ICU. Dr. Fraser was consulted and Ms Cramer underwent colonoscopy on June 18, 2020. It showed circumferential mass involving mid transverse colon beyond which colonoscopy could not be passed. Multiple biopsies were obtained. On June 19, 2020, patient underwent left hemicolectomy. The final pathology report showed poorly differentiated carcinoma favor: Primary with vascular invasion and tumor focally infiltrating through muscularis propria into pericolonic fat. With clear margins and 0 out of 13 lymph nodes showed no metastatic disease. No macro tumor perforation seen lymphovascular invasion was present, perineural invasion not identified. e.g. T3, N0 immunohistochemistry positive for CDX2 and negative for synaptophysin, chromogranin, CD56, neuron-specific enolase. Ki-67 was 60 to 80% positive. There was a comment from pathology while a primary tumor of colon is favored but other lesions cannot be totally excluded, MSI MMR intact Patient tolerated procedure well and has recovered well. Patient denies any history of alcohol use but used to smoke quit smoking many years ago. Denies any fever chills denies any nausea or vomiting denies any diarrhea or constipation, appetite is good, no abdominal pain Because of postsurgical elevated CEA and being high risk stage II colon cancer, a PET/CT scan was ordered. It was obtained on September 25, 2020. It showed postsurgical changes from prior colon surgery. Nodular uptake deep to the ventral abdominal wall incision adjacent to the transverse colon, bilateral hilar and mediastinal lymphadenopathy concerning for metastatic disease but no hypermetabolic pulmonary masses. Multifocal FDG avid liver lesions and portacaval lymph node concerning for metastatic disease. Hypermetabolic activity adjacent to the left 11th rib, additional hypermetabolic activity adjacent to the left 10th rib versus spleen versus splenic flexure concerning for metastatic disease. The descending thoracic aorta aneurysm size 7.2 x 8.5 compared to 8 cm in June 2020. Ms. Cramer was seen her sitting and encouraged to pursue palliative chemotherapy with Xeloda. However at the time the daughter called and canceled the chemotherapy education session because Mrs. Cramer decided not to take the Xeloda due to related side effect concerns. At that point they were offered hospice referral but then presented back to Dr. Deras on November 22, 2020 for further discussion of her disease and treatment. Her CEA had continued to rise and on November 22, 2020 was 99.2 compared to 38.3 on September 12, 2020. Again Dr. Deras offered oral chemotherapy with Xeloda and 50 mg per metered squared twice daily days 1 through 14 and 7 days off. Mrs. Cramer has agreed to a trial of the Xeloda at this time. She is here today for chemotherapy education and discussion of her plan of care. She has no new concerns today. She denies any fever or chills. She has had no further episodes of severe constipation. She states her bowels are normal for her as her new normal since surgery . She denies any mouth sores, sore throat or difficulty swallowing. She denies any rash. She states her appetite is good her energy is marginal but she is able to do all her ADLs without any assistance. She denies any orthopnea, shortness of breath or lower extremity edema. Her ECOG is 1. Came for follow-up, denies any specific complaints, no fever chills, no nausea or vomiting, no diarrhea constipation, patient was prescribed oral Xeloda for her metastatic colon cancer as patient agreed but later on at home, she changed her mind and decided not to take oral Xeloda knowing all the risk versus benefits. Medications: Ascorbic Acid 1 (250 mg) Tablet, chewable Oral daily, Cholecalciferol 1 (250 mcg ) Tablet Oral daily, Metoprolol Succinate ER 1 (150 mg) Tablet SR 24 HR Oral daily, Protonix 1 Tablet (of 40 mg) Tablet, enteric coated Oral daily, Xeloda 2 Tablet (of 150 mg) Oral b.i.d., Xeloda 2 Tablet (of 500 mg) Oral b.i.d. Allergies: No Known Allergies. Review of Systems: Review of Systems is not available for this patient. Vital Signs: Performed on Jan 03, 2021 15:50 Height - 62.00 in Weight - 127 lbs (HIGH) BSA - 1.58 sq.m BMI - 23.23 Temperature - 97.9 F (LOW) Pulse - 71 /min Respiration - 18 /min BP - 148/77 mm(hg) (HIGH) O2 Sat - 97 % Pain - 0 Fatigue - 9 Performance Status: 1 - No physically strenuous activity, but ambulatory and able to carry out light or sedentary work (e.g. office work, light house work). (ECOG) Physical Examination: ENMT - No mouth sores, no thrush, no jaundice, Respiratory - Lungs are clear to auscultation, Cardiovascular - Regular rate and rhythm of heart, Abdomen - Soft, bowel sounds present, Extremities - No visible edema. Lab/Imaging: Most recent lab results are not available for this patient. Impression: Metastatic disease per CT PET scan Done on September 25, 2020, showed nodular uptake deep to the ventral abdominal wall incision adjacent to transverse colon. Bilateral hilar and mediastinal lymphadenopathy, concerning for metastatic disease multifocal FDG avid liver lesions and portacaval lymph node concerning for metastatic disease. Hypermetabolic activity adjacent to left 11th rib and to 10th rib versus splenic, concerning for metastatic disease, with progressive CEA, 53.7 on October 05, 2019 consistent with metastatic colon cancer,And repeat CEA on November 22, 2020 was 99.2, patient was offered oral Xeloda which she agreed but then later patient decided not to take palliative oral Xeloda AGAINST MEDICAL ADVICE Status post , Poorly differentiated carcinoma involving transverse colon status post left hemicolectomy done on June 19, 2020 for obstructive lesion, final pathology report confirmed clear margins, lymphovascular invasion seen, 0 out of 13 lymph node positive for metastatic disease e.g. T3, N0 Ki-67 60 to 80%, immunohistochemistry positive for CDX2, negative for synaptophysin, chromogranin, CD56 CT scan of chest abdomen pelvis done on June 30, 2020 showed no abnormality in the liver, there is a moderate amount of some internal complexity in the abdomen the amount of fluid in the abdomen has increased when compared with the previous scan done on June 16, 2020 pelvic fluid collection remained stable, bilateral pleural effusion, stable appearance of the distal thoracic aortic aneurysm History of COPD History of arthritis History of hypertension Plan: Discussed with patient regarding her labs white blood count 8.1 hemoglobin 12.7 hematocrit 39.9 platelets 182,000 CMP within normal limit except creatinine 1.2 and CEA is pending Clinically, patient is doing reasonably well with no new signs symptoms, patient was prescribed oral Xeloda with palliative intent for metastatic colon cancer. But later on patient changed her mind and decided not to take oral Xeloda or any other chemotherapy, as per patient she would not put any 'poison' in her body., Patient was again informed about possible benefit and side effect associated with palliative oral Xeloda but patient categorically refused to consider any form of treatment for her metastatic disease, even her daughter try to convince her. Patient was advised to think over and let us know by next week, if patient decided not to considering systemic chemotherapy, will consider about referral to hospice or palliative care clinic. Signed By: Juanpablo Deras M.D. <<Signature on File>>
[2021-01-03 21:42] LABS: Carcinoembryonic Antigen 336.3 ng/mL (0.0-4.7)
== END 2021-02-02 23:59 | disposition home or self-care (01) ==
LOC: ONCMED 14:06
PROVIDERS: PCP Family Medicine; Visit Provider Internal Medicine Hematology & Oncology
DX: C18.4 Malignant neoplasm of transverse colon (principal); C77.8 Secondary and unspecified malignant neoplasm of lymph nodes of multiple regions; J90 Pleural effusion, not elsewhere classified; I71.4 Abdominal aortic aneurysm, without rupture; J44.9 Chronic obstructive pulmonary disease, unspecified; M19.90 Unspecified osteoarthritis, unspecified site; I10 Essential (primary) hypertension; Z79.899 Other long term (current) drug therapy; Z92.21 Personal history of antineoplastic chemotherapy
CPT/HCPCS: 36415; 80053; 82378; 85025; 99214

== ENCOUNTER 2021-02-07 21:17 | Emergency (ER) | payer MEDICARE, MEDICAID, SELFPAY ==
[2021-02-07 21:47] VITALS: BP 126/70; PULSE 84; RESP 16; TEMP 36.2; O2SAT 96; BMI 23.0
[2021-02-07 23:16] VITALS: BP 120/76; PULSE 94; RESP 28; O2SAT 96
[2021-02-07 23:30] VITALS: O2SAT 96
--- NOTE | 2021-02-07 23:38 | ECG_ITS ---
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 Measurements Intervals [place] Rate: 89 P: 94 [place]: 194 QRS: 81 QRSD: 82 T: 75 QT: 338 QTc: 412 Interpretive Statements SINUS RHYTHM Compared to ECG 06/28/2020 21:49:52 First degree AV block no longer present Electronically Signed On 02-08-2021 13:55:53 CDT by Marsha Wilkins M.D. [id number]
--- NOTE | 2021-02-07 23:38 | XRR_ITS ---
PROCEDURE INFORMATION: Exam: XR Chest Exam date and time: 02/07/2021 11:38 PM Age: 81 years old Clinical indication: Chest pressure; Prior surgery; Surgery type: Gb; Patient HX: Chest pain. History of lung cancer. TECHNIQUE: Imaging protocol: XR of the chest. Views: 1 view. COMPARISON: CR XR chest 1V portable [id number] 07/03/2020 2:04 PM FINDINGS: Lungs: Unremarkable. No consolidation. Pleural spaces: Unremarkable. No pleural effusion. No pneumothorax. Heart/Mediastinum: Unremarkable. No cardiomegaly. Vasculature: A prominent aneurysm is again seen within the distal descending thoracic aorta superimposed over the right cardiac border similar in size compared with CT examination of the abdomen and pelvis dated 06/30/2020. Bones/joints: Unremarkable. XR/XR chest 1V portable [id number] IMPRESSION: 1. Stable descending thoracic aortic aneurysm. 2. There are no acute chest findings.
--- NOTE | 2021-02-07 23:47 | W.ED.CHESTPA ---
HPI - Chest Pain General: Chief Complaint: Chest Pain Stated Complaint: Chest Pains Has stage 4 Cancer Time Seen by Provider: 02/07/21 23:38 History of Present Illness: HPI narrative: 81-year-old female comes in tonight with complaints of left-sided chest pain. Patient was diagnosed with colon cancer that has metastasized. Patient did have surgical removal of part of her bowel late last year. Patient did not continue with treatment due to poor tolerance of chemotherapy. Patient reports for the past 3 days she has had increasing discomfort in the left chest wall. Patient also reports some pain in her back that feels like it is on fire at times. Patient appears well. Patient appears no acute distress. Review of Systems General: Reports: 10 or more systems reviewed and unremarkable except in HPI and below Card: Reports: chest pain PFSH ED PFSH: Medical History Arthritis COPD (chronic obstructive pulmonary disease) Hypertension Incisional hernia Surgical History H/O: hysterectomy S/P cholecystectomy S/P left hemicolectomy (06/20/20) Family History Other Diabetes Denies family history of Cancer Social History Smoking and tobacco status: former smoker Alcohol intake: never Physical Exam Const: COMMON NORMALS: no acute distress and patient oriented x3 GENERAL APPEARANCE: cooperative HENMT: COMMON NORMALS: normocephalic and Normal external nose present HEAD & SCALP: normal to inspection and normocephalic NOSE: Normal external nose present MOUTH: Normal oral and palatal mucosa present THROAT: posterior oropharynx normal Eye: GENERAL EYE: appearance normal, both eyes and all related structures Neck/C-Spine: COMMON NORMALS: full ROM Lymph: LYMPHATIC: no lymphadenopathy noted Chest: COMMONS NORMALS: normal inspection of the chest Resp: COMMON NORMALS: normal respiratory effort EFFORT & INSPECTION: Yes able to speak in complete sentences Cardio: COMMON NORMALS: regular rate and regular rhythm RATE: regular rate RHYTHM: regular rhythm GI: COMMON NORMALS: non-tender : COMMON NORMALS: Yes no CVA tenderness BLADDER/KIDNEY EXAM: Yes no CVA tenderness Back/Pelvis: COMMON NORMALS: no CVA tenderness and thoracic and lumbar spine normal to inspection Extremity: COMMON NORMALS: normal to inspection Neuro: COMMON NORMALS: patient oriented x3 and moves all extremities Psych: COMMON NORMALS: mental status grossly normal and cooperative Skin: COMMON NORMALS: no rashes or lesions noted GENERAL SKIN EXAM: no rashes or lesions noted Course Vital Signs: Vital signs: Vital Signs Temperature 99.1 F 02/08/21 00:13 Pulse Rate 90 02/08/21 00:30 Respiratory Rate 26 H 02/08/21 00:30 Blood Pressure 131/77 02/08/21 00:30 Pulse Oximetry 95 02/08/21 00:30 MDM - Chest Pain MDM Narrative: Medical decision making narrative: 81-year-old female comes in today with complaints of some left-sided chest pain. Since arriving to the ER patient reports improvement in chest wall discomfort. Patient appears well. Patient appears no acute distress. Patient does have a history of a thoracic aneurysm and metastatic cancer. Lungs are clear to auscultation. Abdomen soft nontender. Skin is warm and dry. Vital signs are normal. Differential diagnosis includes but not limited to ACS, pleural effusion, ruptured thoracic aneurysm. Laboratory values were remarkable for elevated D-dimer. The rest of the labs were unremarkable. CTA was performed with patient consent and noted no pulmonary embolism. Radiologist did contact me and talk for me further about the aneurysm which has enlarged since her last exam. I reviewed this with patient and due to her metastatic cancer and the inability to treat it she did not feel the need for further treatment regarding her aneurysm. We discussed pain options and recommendations for further follow-up with primary care. Patient reported understanding and agreed to plan. Lab Data: Labs: Lab Results 02/08/21 02/08/21 02/08/21 Range/Units 00:37 00:37 00:37 WBC 10.1 H (4.0-10.0) 10^3/ uL RBC 4.59 (4.1-5.3) 10^6/u L Hgb 12.8 (11.5-15.3) g/dL Hct 39.3 (37.0-47.0) % MCV 85.6 (81-99) fL MCH 27.9 L (28.0-34.0) pg MCHC 32.6 (30.0-36.0) g/dL RDW 15.9 H (12.1-15.1) % Plt Count 161 (130-400) 10^3/c mm MPV 10.1 (7.4-10.4) fL Neut % (Auto) 77.0 % Lymph % (Auto) 11.2 % Pratt % (Auto) 8.8 % Eos % (Auto) 0.9 % Baso % (Auto) 0.5 % Neut # (Auto) 7.79 H (1.8-7.7) 10^3/u L Lymph # (Auto) 1.1 (0.8-4.8) 10^3/u L Pratt # (Auto) 0.9 (0.2-0.9) 10^3/u L Eos # (Auto) 0.1 (0.0-0.8) 10^3/u L Baso # (Auto) 0.1 (0.0-0.1) 10^3/u L Nucleated RBC % (a uto) 0 % Nucleated RBCs # 0.0 /100WBC PT 14.30 (12.1-14.9) SECO NDS INR 1.08 (0.8-1.2) APTT 41.7 H (23.9-36.7) SECO NDS D-Dimer >= 20.00 H (0-0.59) ug/mIFE U Sodium 136 (136-145) mmol/L Potassium 4.4 (3.5-5.1) mmol/L Chloride 98 (98-107) mmol/L Carbon Dioxide 25 (22-29) mmol/L Anion Gap 17.4 (5-19) BUN 14 (8-23) mg/dL Creatinine 0.9 (0.5-0.9) mg/dL GFR Calculation Not Reportable Glucose 100 (65-115) mg/dL Calculated Osmolal ity 283 L (285-295) mOsm/k g Calcium 8.9 (8.5-10.5) mg/dL Magnesium 1.7 (1.7-2.3) mg/dL Total Bilirubin 0.8 (0.15-1.2) mg/dL AST 24 (0-32) U/L ALT 19 (0-33) U/L Alkaline Phosphata se 326 H (35-105) IU/L Troponin T Baselin e (0-10) ng/L Troponin T 120 Min [place] (0-10) ng/L Delta Troponin T (0-10) ABS# NT-Pro-B Natriuret Pep 368 (0-450) pg/mL Total Protein 6.8 (6.6-8.7) g/dL Albumin 3.9 (3.5-5.2) g/dL Globulin 2.9 (1.3-4.6) g/dL 02/08/21 02/08/21 Range/Units 00:37 02:10 WBC (4.0-10.0) 10^3/ uL RBC (4.1-5.3) 10^6/u L Hgb (11.5-15.3) g/dL Hct (37.0-47.0) % MCV (81-99) fL MCH (28.0-34.0) pg MCHC (30.0-36.0) g/dL RDW (12.1-15.1) % Plt Count (130-400) 10^3/c mm MPV (7.4-10.4) fL Neut % (Auto) % Lymph % (Auto) % Pratt % (Auto) % Eos % (Auto) % Baso % (Auto) % Neut # (Auto) (1.8-7.7) 10^3/u L Lymph # (Auto) (0.8-4.8) 10^3/u L Pratt # (Auto) (0.2-0.9) 10^3/u L Eos # (Auto) (0.0-0.8) 10^3/u L Baso # (Auto) (0.0-0.1) 10^3/u L Nucleated RBC % (a uto) % Nucleated RBCs # /100WBC PT (12.1-14.9) SECO NDS INR (0.8-1.2) APTT (23.9-36.7) SECO NDS D-Dimer (0-0.59) ug/mIFE U Sodium (136-145) mmol/L Potassium (3.5-5.1) mmol/L Chloride (98-107) mmol/L Carbon Dioxide (22-29) mmol/L Anion Gap (5-19) BUN (8-23) mg/dL Creatinine (0.5-0.9) mg/dL GFR Calculation Glucose (65-115) mg/dL Calculated Osmolal ity (285-295) mOsm/k g Calcium (8.5-10.5) mg/dL Magnesium (1.7-2.3) mg/dL Total Bilirubin (0.15-1.2) mg/dL AST (0-32) U/L ALT (0-33) U/L Alkaline Phosphata se (35-105) IU/L Troponin T Baselin e 19 H (0-10) ng/L Troponin T 120 Min [place] 17.17 H (0-10) ng/L Delta Troponin T -1.83 L (0-10) ABS# NT-Pro-B Natriuret Pep (0-450) pg/mL Total Protein (6.6-8.7) g/dL Albumin (3.5-5.2) g/dL Globulin (1.3-4.6) g/dL EKG Data^: EKG 1: Attestation: I personally reviewed and interpreted this EKG as follows: (2355, EKG shows normal sinus rhythm regular rate at 89 bpm, no ectopy no ST elevation. No prior exam was available for comparison at this time.) EKG 2: Attestation: I personally reviewed and interpreted this EKG as follows: (0200, EKG shows normal sinus rhythm, no ectopy or ST elevation, regular rate at 89 bpm, no changes from prior exam.) Discharge Plan Discharge Patient Disposition: Home Clinical Impression: Atypical chest pain Thoracic aortic aneurysm Qualifiers: Presence of rupture: without rupture Qualified Code(s): I71.2 - Thoracic aortic aneurysm, without rupture Metastatic cancer Qualifiers: Area of secondary neoplastic involvement: unspecified site Qualified Code(s): C79.9 - Secondary malignant neoplasm of unspecified site Condition: Stable Prescriptions: No Action metoprolol succinate 100 mg tablet extended release 24 hr 150 mg PO DAILY@09 RF: 0 amlodipine 10 mg tablet 10 mg PO DAILY@09 RF: 0 Emergen-C 1,000 mg Powder Effervescent In Packet 1 ea PO DAILY RF: 0 Vitamin D3 125 mcg (5,000 unit) Tablet 250 mcg PO DAILY PRN (Reason: unknown) RF: 0 Discharge Orders: Discharge ED (Routine); Ordered 02/08/21 Ordered By: Kyree Hoang Referrals: Chacha Coy MD [Primary Care Provider] - Discharge Diet: Usual diet Discharge Activity: Increase activity as tolerated Patient Instructions: Thoracic Aortic Aneurysm (ED), Opioid Safety Activity Restrictions/Additional Instructions: Home and rest. Drink plenty of fluids. Continue with medication as needed for pain. Follow-up with primary care for other options regarding hospice to help with pain control. Return to the ER for new concerns. Coding Level of Care Code ED Home Health Registered Nurse for Chg Fwd Exam Comprehensive
[2021-02-08 00:13] VITALS: BP 141/85; PULSE 92; RESP 32; TEMP 37.3; O2SAT 96
[2021-02-08 00:30] VITALS: BP 131/77; PULSE 90; RESP 26; O2SAT 95
[2021-02-08 00:39] LABS: Basophils # 0.1 10^3/uL (0.0-0.1); Basophils % 0.5 %; Eosinophils # 0.1 10^3/uL (0.0-0.8); Eosinophils % 0.9 %; Hematocrit 39.3 % (37.0-47.0); Hemoglobin 12.8 g/dL (11.5-15.3); Lymphocytes # 1.1 10^3/uL (0.8-4.8); Lymphocytes % 11.2 %; Mean Corpuscular HGB Conc 32.6 g/dL (30.0-36.0); Mean Corpuscular Hemoglobin 27.9 pg (28.0-34.0); Mean Corpuscular Volume 85.6 fL (81-99); Mean Platelet Volume 10.1 fL (7.4-10.4); Monocytes # 0.9 10^3/uL (0.2-0.9); Monocytes % 8.8 %; Neutrophils # 7.79 10^3/uL (1.8-7.7); Nucleated Red Blood Cells % 0 %; Platelet Count 161 10^3/cmm (130-400); Red Blood Count 4.59 10^6/uL (4.1-5.3); Red Cell Distribution Width 15.9 % (12.1-15.1); White Blood Count 10.1 10^3/uL (4.0-10.0)
--- NOTE | 2021-02-08 00:39 | PC.NURSE ---
PT REPORTS CHEST PAIN 4/10, GRANDAUGHTER AT BEDSIDE.
[2021-02-08 00:51] LABS: INR 1.08 (0.8-1.2)
[2021-02-08 00:53] LABS: Partial Thromboplastin Time 41.7 SECONDS (23.9-36.7)
[2021-02-08 01:00] LABS: Troponin(5th) Baseline 19 ng/L (0-10)
[2021-02-08 01:07] LABS: Alanine Aminotransferase 19 U/L (0-33); Albumin Level 3.9 g/dL (3.5-5.2); Alkaline Phosphatase 326 IU/L (35-105); Anion Gap 17.4 (5-19); Aspartate Amino Transferase 24 U/L (0-32); Blood Urea Nitrogen 14 mg/dL (8-23); Calcium 8.9 mg/dL (8.5-10.5); Carbon Dioxide 25 mmol/L (22-29); Chloride 98 mmol/L (98-107); Globulin 2.9 g/dL (1.3-4.6); Glucose 100 mg/dL (65-115); Magnesium 1.7 mg/dL (1.7-2.3); NT Pro B Type Natriuretic Pept 368 pg/mL (0-450); Osmolality Calculated 283 mOsm/kg (285-295); Potassium 4.4 mmol/L (3.5-5.1); Sodium 136 mmol/L (136-145); Total Bilirubin 0.8 mg/dL (0.15-1.2); Total Protein 6.8 g/dL (6.6-8.7)
[2021-02-08 01:10] LABS: D Dimer >= 20.00 ug/mIFEU (0-0.59)
--- NOTE | 2021-02-08 01:12 | CTR_ITS ---
PROCEDURE INFORMATION: Exam: CTA Chest With Contrast Exam date and time: 02/08/2021 1:12 AM Age: 81 years old Clinical indication: Chest pressure; Prior surgery; Surgery type: Gb; Patient HX: Chest pain/elevated ddimer. History of lung cancer. ; Additional info: Cancer, elevated pe TECHNIQUE: Imaging protocol: Computed tomographic angiography of the chest with contrast. 3D rendering (Not supervised by radiologist): MIP and/or 3D reconstructed images were created by the technologist. Radiation optimization: All CT scans at this facility use at least one of these dose optimization techniques: automated exposure control; mA and/or kV adjustment per patient size (includes targeted exams where dose is matched to clinical indication); or iterative reconstruction. Contrast material: VISI 320; Contrast volume: 65 ml; Contrast route: INTRAVENOUS (IV); COMPARISON: CR (CHEST, ) 02/07/2021 11:49 PM RADIATION DOSE METRICS: Total DLP (mGy-cm): 470.44 FINDINGS: Pulmonary arteries: Normal. No pulmonary emboli. Aorta: There is a prominent aneurysm seen within the distal descending thoracic aorta. There is been interval enlargement the aneurysm previously measuring 6.8 x 8.3 x 7.6 cm, today measuring 7.4 x 9.0 x 8.0 cm. Additionally today, there is contrast material present that appears to extend into the aneurysmal thrombus suggesting more acute expansion of the thoracic aneurysm. Lungs: Unremarkable. No consolidation. No masses. Pleural spaces: Unremarkable. No pneumothorax. No pleural effusion. Heart: See Diaphragm finding. Lymph nodes: There are prominent retrocrural and celiac lymph nodes present, the retrocrural lymph node on the right measures 14.7 mm transverse dimension, the largest celiac lymph node measures approximately 16 mm transverse dimension. Mildly prominent mediastinal and hilar lymph nodes are seen, the largest seen in the posterior mediastinum adjacent to the esophagus measuring 12.3 mm transverse dimension. Diaphragm: Partially calcified 8.3 mm granuloma superimposed over the left hemidiaphragm. A calcified 4.7 mm granuloma seen adjacent to the right heart border and a calcified 3.7 mm granuloma seen in the lingula. Liver: An irregular hypoattenuation mass seen in the right hepatic lobe posterior medially measuring approximately 8.6 cm AP dimension by 5.2 cm transverse dimension and at least 7 cm craniocaudal dimension. An exophytic mass seen along the posteromedial serosal margin of the liver adjacent to the low-attenuation mass measuring approximately 2.5 cm in diameter. 1.6 cm hypoattenuation lesions seen in the left hepatic lobe. Gallbladder and bile ducts: Status post cholecystectomy. Spleen: A 2.3 cm low-attenuation lesions seen on the anterior aspect of the spleen. Kidneys and ureters: A 12 mm cystic mass seen in the upper pole of the left kidney. Bones/joints: Unremarkable. No acute fracture. Soft tissues: Unremarkable. CT/CT angio chest PE protcl [id number] IMPRESSION: 1. Enlarging distal descending thoracic aortic aneurysm measuring 7.4 x 9.0 x 8.0 cm. There is contrast material extending into the aneurysmal thrombus suggesting a more acute expansion of the thoracic aneurysm. A cardiothoracic consultation is suggested. 2. Mediastinal, retrocrural and celiac lymphadenopathy 3. Low attenuation right hepatic mass partially imaged today. A smaller low attenuation lesions seen in the left hepatic lobe. 4. Low attenuation mass seen in the anterior aspect of the spleen. COMMENTS: Consistent with the [employer]'s Incidental Findings Committee white paper (J Am Jaqueline Radiol 2018): Any incidental renal lesion less than 1 cm or classified as too small to characterize, or any incidental cystic renal lesion characterized as simple-appearing, is likely benign. No follow-up imaging is recommended for these lesions per consensus recommendations based on imaging criteria. Radiation Dose CTDIVOL = (mGy): DLP = 470.44 (mGy-cm)
--- NOTE | 2021-02-08 01:38 | ECG_ITS ---
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 Measurements Intervals [place] Rate: 89 P: 87 MA: 186 QRS: 68 QRSD: 85 T: 75 QT: 341 QTc: 417 Interpretive Statements SINUS RHYTHM Compared to ECG 02/07/2021 23:50:54 No significant changes Electronically Signed On 02-08-2021 16:46:18 CDT by Marsha Wilkins M.D. [id number]
[2021-02-08] MEDS: iodixanol 320 mg/mL 100mL Btl IV (02:02)
[2021-02-08 02:45] LABS: Troponin 5 2HR 17.17 ng/L (0-10)
[2021-02-08 02:46] LABS: Troponin 5 2HR Delta -1.83 ABS# (0-10)
[2021-02-08 03:19] VITALS: BP 135/80
== END 2021-02-08 03:22 | disposition home or self-care (01) ==
PROVIDERS: Emergency Provider Nurse Practitioner Family; PCP Family Medicine
DX: R07.89 Other chest pain (principal); I71.2 Thoracic aortic aneurysm, without rupture; C18.9 Malignant neoplasm of colon, unspecified; C79.9 Secondary malignant neoplasm of unspecified site; J44.9 Chronic obstructive pulmonary disease, unspecified; I10 Essential (primary) hypertension; Z87.891 Personal history of nicotine dependence
CPT/HCPCS: 36415; 71045; 71275; 80053; 83735; 83880; 84484; 85025; 85378; 85610; 85730; 93005; 99284; Q9967